=== PATIENT | female | born 2000 | race Hispanic/Latino ===

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

== ENCOUNTER 2020-04-18 11:50 | Inpatient (IN) | payer MEDICAID, OTHER ==
[2020-04-18] VITALS (18 sets, daily range): BP systolic 97–142; BP diastolic 52–89
[~2020-04-18] VITALS: Ht 157.5 cm; Wt 89.5 kg
--- NOTE | 2020-04-18 11:45 | NUR ---
APRIL GORDON presented to unit via ambulation from ED, accompanied by mother, with c/o ELEVATED BP. Pt. weighed, gowned, voided, and to bed. EFHM and TOCO applied, VS taken. Pt. oriented to bed controls, call light, TV, heat, and A/C controls.
[~2020-04-18 11:50] MED LIST changes: +CIPR-225 PO; +HYOS0.1283 SL; +METR500T PO; +ONDA4TAB8 PO; +PANT40TA2 PO; +SULF1TAB35 PO
[2020-04-18 12:47] LABS: BASOPHILS % (AUTO) 0 % (0-10); EOSINOPHILS % (AUTO) 0 % (0-10); HEMATOCRIT 34 % (35-52); HEMOGLOBIN 11.4 g/dL (11.5-16.0); LYMPHOCYTES % (AUTO) 11 % (12-44); MEAN CORPUSCULAR HEMOGLOBIN 31 pg (25-34); MEAN CORPUSCULAR HGB CONC 34 g/dL (32-36); MEAN CORPUSCULAR VOLUME 91 fL (80-99); MEAN PLATELET VOLUME 11.4 fL (9.0-12.2); MONOCYTES # (AUTO) 0.5 10^3/uL (0.0-1.0); MONOCYTES % (AUTO) 6 % (0-12); NEUTROPHILS # (AUTO) 7.4 10^3/uL (1.8-7.8); NEUTROPHILS % (AUTO) 83 % (42-75); PLATELET COUNT 227 10^3/uL (130-400); WHITE BLOOD COUNT 8.9 10^3/uL (4.3-11.0)
[2020-04-18 13:00] LABS: ALBUMIN 3.2 GM/DL (3.2-4.5); CHLORIDE 108 MMOL/L (98-107); POTASSIUM 3.7 MMOL/L (3.6-5.0); SODIUM 137 MMOL/L (135-145)
[2020-04-18 13:01] LABS: CALCIUM 8.4 MG/DL (8.5-10.1)
[2020-04-18 13:03] LABS: GLUCOSE 82 MG/DL (70-105); TOTAL PROTEIN 6.1 GM/DL (6.4-8.2)
[2020-04-18 13:04] LABS: BILIRUBIN,TOTAL 0.5 MG/DL (0.1-1.0); CARBON DIOXIDE 17 MMOL/L (21-32)
[2020-04-18 13:06] LABS: ALKALINE PHOSPHATASE 124 U/L (40-136); GFR ESTIMATED > 60
[2020-04-18 13:07] LABS: BUN/CREATININE RATIO 12
[2020-04-18 13:09] LABS: ALANINE AMINOTRANSFERASE 10 U/L (0-55); URIC ACID 5.6 MG/DL (2.6-7.2)
--- NOTE | 2020-04-18 14:41 | History & Physical-OB ---
OB - Chief Complaint & HPI Date/Time Date of Admission: Date of Admission: Date seen by a Provider: Apr 18, 2020 Time Seen by a Provider: 14:00 Chief Complaint/History OB-Reason for Admission/Chief: Obstetrical Complication Hx : 1 Hx Para: 0 Expected Date of Delivery: Apr 30, 2020 Gestational Age in Weeks: 38 Gestational Age in Days: 2 Indication for induction: medical complication (preeclampsia) Other reason for admission: In clinic for routine visit today had diastolic 90 and above, including on repeat check and had 1+ protein on urine dip, sent to L&D for labs and found to have protein to creatinine ratio 0.46. She also admitted severe headaches over the last several days that didn't last long each time so she didn't know if they were significant. She and her mother note that she does not have a vehicle or reliable transportation (and she has missed last few appointments in fact), so they are concerned if she goes home and has complications they may not be able to get back in a timely fashion. History of Labs B negative, antibody neg, RI. HIV/HepB/RPR NR. GC neg. Chlamydia pos in early , treated and THALIA negative. Glucola nml, GBS neg. Allergies and Home Medications Allergies Coded Allergies: No Known Drug Allergies (Unverified , 11/17/08) Home Medications Vit/Iron Fumarate/FA 1 Each Tablet, 1 EACH PO DAILY, (Reported) Patient Home Medication List Home Medication List Reviewed: Yes OB - History Hx of Present Care: Yes Ultrasounds: Normal mid trimester US Obstetrical Complications: Pre-eclampsia Obstetrical History Hx : 1 Hx Para: 0 Delivery History Hx Blood Disorders: No Adverse Rxn to Tranfusion: No Patient Past Medical History PMHx: Denies SurgHx: Tonsillectomy Social History/Family History HIV/AIDS: No Recent Infectious Disease Expo: No Sexually Transmitted Disease: No Alcohol Use: Denies Use Recreational Drug Use: No Smoking Cessation: Never smoker 2nd Hand Smoke Exposure: No Immunizations Hepatitis B: No Tetanus Booster (TDap): Less than 5yrs (02/27/20) Date of Influenza Vaccine: Apr 04, 2020 Rubella: immune RPR/VDRL: Negative GBS Status: Negative HBsAG: Negative OB - Admission Exam Physical Exam Vitals: Vital Signs 04/18/20 12:17 Temp 37.0 Pulse 80 Resp 18 Pulse Ox 98 O2 Delivery Room Air HEENT: NCAT Abdomen: Non tender Extremities: Edema (trace) Cervical Dilatation: 2cm Effacement: 0% Station: -3 Membranes: Intact Heart Rate: 150's Decelerations: No Decelerations Contractions on Admission: None Yang Scoring Tool (Modified) Dilation (cm): 1-2cm (1) Effacement (%): 0-30% (0) Descent/Station: -3 (0) Cervix Consistency: Medium(1) Cervix Position: Middle/Mid-Position (1) Add 1 point for: Pre-eclampsia (1) Subtract 1 point for: Nulliparity (-1) Yang Score: 3 Labs Laboratory Tests Test 04/18/20 12:00 04/18/20 12:40 04/18/20 13:00 Range/Units Urine Protein 82 H 6-12 MG/DL Urine Creatinine 178 H 30-125 MG/DL Urine Protein/Creatinine Ratio 0.46 White Blood Count 8.9 4.3-11.0 10^3/uL Red Blood Count 3.69 L 3.80-5.11 10^6/uL Hemoglobin 11.4 L 11.5-16.0 g/dL Hematocrit 34 L 35-52 % Mean Corpuscular Volume 91 80-99 fL Mean Corpuscular Hemoglobin 31 25-34 pg Mean Corpuscular Hemoglobin Concent 34 32-36 g/dL Red Cell Distribution Width 14.3 10.0-14.5 % Platelet Count 227 130-400 10^3/uL Mean Platelet Volume 11.4 9.0-12.2 fL Immature Granulocyte % (Auto) 1 % Neutrophils (%) (Auto) 83 H 42-75 % Lymphocytes (%) (Auto) 11 L 12-44 % Monocytes (%) (Auto) 6 0-12 % Eosinophils (%) (Auto) 0 0-10 % Basophils (%) (Auto) 0 0-10 % Neutrophils # (Auto) 7.4 1.8-7.8 10^3/uL Lymphocytes # (Auto) 1.0 1.0-4.0 10^3/uL Monocytes # (Auto) 0.5 0.0-1.0 10^3/uL Eosinophils # (Auto) 0.0 0.0-0.3 10^3/uL Basophils # (Auto) 0.0 0.0-0.1 10^3/uL Immature Granulocyte # (Auto) 0.0 0.0-0.1 10^3/uL Sodium Level 137 135-145 MMOL/L Potassium Level 3.7 3.6-5.0 MMOL/L Chloride Level 108 H 98-107 MMOL/L Carbon Dioxide Level 17 L 21-32 MMOL/L Anion Gap 12 5-14 MMOL/L Blood Urea Nitrogen 6 L 7-18 MG/DL Creatinine 0.50 L 0.60-1.30 MG/DL Estimat Glomerular Filtration Rate > 60 BUN/Creatinine Ratio 12 Glucose Level 82 70-105 MG/DL Uric Acid 5.6 2.6-7.2 MG/DL Calcium Level 8.4 L 8.5-10.1 MG/DL Corrected Calcium 9.0 8.5-10.1 MG/DL Total Bilirubin 0.5 0.1-1.0 MG/DL Aspartate Amino Transf (AST/SGOT) 15 5-34 U/L Alanine Aminotransferase (ALT/SGPT) 10 0-55 U/L Alkaline Phosphatase 124 40-136 U/L Lactate Dehydrogenase 166 125-220 U/L Total Protein 6.1 L 6.4-8.2 GM/DL Albumin 3.2 3.2-4.5 GM/DL OB - Assessment/Plan/Diagnosis Assessment Admission Dx Preeclampsia (BP 130/90 and 130/96 in clinic, urine pr/cr 0.46 and new onset headache) Term intrauterine 38 weeks gestation Blood type B neg Rubella immune GBS negative Admission Status: Inpatient Order (span 2 midnights) Reason for Inpatient Admission: Induction, labor, delivery and course Plan Problems: (1) Preeclampsia Assessment & Plan: Blood pressure only mildly elevated, minimally symptomatic, will monitor closely but will not start magnesium at this time. Yang score low and patient stable, heart rate tracing reactive, will start misoprostol for cerivcal ripening. LEON GOULD MD Apr 18, 2020 14:41
--- NOTE | 2020-04-18 15:04 | NUR ---
monitors off. pt ambulated to room 320 for IOL.
--- NOTE | 2020-04-18 15:24 | NUR ---
admission paperwork completed.
--- NOTE | 2020-04-18 15:51 | NUR ---
#20g IV to Lt.wrist x1 attempt by this RN. site patent, secured with opsite. D5LR @ 100cc/hr infusing. admission labs collected from site prior to IVF's infusing.
[2020-04-18] MEDS: D5 LR IV SOLUTION 1,000 ML IV SCH (15:58)
[2020-04-18] MEDS: MISOPROSTOL 100 MCG (CYTOTEC) TAB PV PRN ×2 (16:03→20:12)
[2020-04-18] MEDS ORDERED: PREN-37 PO (17:37)
--- NOTE | 2020-04-18 18:02 | NUR ---
sitting up eating clear liquid diet. denies c/o's pain @ time.
--- NOTE | 2020-04-18 19:13 | NUR ---
report given to RANJIT De Leon.
[2020-04-18] MEDS ORDERED: CATHETER FLUSH 10 ML SYR IV SCH (22:00)
[2020-04-19] VITALS (61 sets, daily range): BP systolic 94–148; BP diastolic 40–98
[2020-04-19] MEDS: D5 LR IV SOLUTION 1,000 ML IV SCH ×2 (01:43→11:29)
[2020-04-19] MEDS ORDERED: OXYTOCIN PRE-MIX DRIP 500 ML IV ONE (06:27)
[2020-04-19] MEDS: OXYTOCIN PRE-MIX DRIP 500 ML IV SCH ×2 (06:38→17:19)
--- NOTE | 2020-04-19 08:43 | NUR ---
anesthesia notified of pt's request for epidural placement
[2020-04-19] MEDS ORDERED: LACTATED RINGERS 1,000 ML IV ONE ×2 (08:48→13:31)
--- NOTE | 2020-04-19 08:53 | NUR ---
MEHRAN Barrios and CARLENE Garcia here for epidural placement. Procedure explained, consent reviewed and signed by anesthesia. Questions answered to patient's satisfaction. Time out taken to verify correct patient/procedure. 0904- Patient up to side of bed, assisted into sitting position. Betadine prep done x3 and sterile drape applied. 0911- Local done, see anesthesia record. 0926-Test dose given, see anesthesia record for drug and dosage. Epidural catheter secured in place. Epidural placement complete. 0940-Assisted back into bed, monitors adjusted. Epidural dosed, see anesthesia record. Epidural of Sufenta/Fentanyl @12cc/hr stated per pump. Patient tolerated procedure well.
[2020-04-19] MEDS ORDERED: fentaNYL INJECTION 100 MCG/2 ML AMP ONE (08:57)
[2020-04-19] MEDS: fentaNYL 2 mcg/ml BUPIVA 0.125 100 ML ONE ×2 (09:50→13:36)
[2020-04-19] MEDS ORDERED: BUPIVACAINE 0.25% 30 ML (SENSORCAINE) VIAL ONE (09:59)
[2020-04-19] MEDS ORDERED: ONDANSETRON 4 MG/2 ML (SDV) Z0FRAN ONE (12:53)
[2020-04-19] MEDS ORDERED: CATHETER FLUSH 10 ML SYR IV PRN (13:45)
[2020-04-19] MEDS ORDERED: NALOXONE 0.4 MG/ML 1 ML (NARCAN) VIAL IV PRN (13:45)
[2020-04-19] MEDS ORDERED: ONDANSETRON 4 MG/2 ML (SDV) Z0FRAN IV PRN (13:45)
--- NOTE | 2020-04-19 15:10 | NUR ---
report given to RANJIT Larose.
--- NOTE | 2020-04-19 15:51 | NUR ---
Notified Dr Sharp of VE. [facility] rim 0 +1 station.
[2020-04-19] MEDS ORDERED: LIDOCAINE/EPI 2% 1:200,00 (XYLOCAINE) 10 ML VIAL ONE ×2 (15:55→15:56)
[2020-04-19] MEDS ORDERED: MINERAL OIL CONCENTRATE 99.9% 15 ML UDC ONE (15:55)
--- NOTE | 2020-04-19 16:59 | NUR ---
1659 Recovery initiated. FF@ UMB. mod rubra. no clots expressed. esther care given. Ice water freshened. call light within reach. no concerns voiced via pt. 1714 FF@ UMB. mod rubra. no clots expressed. Baby breast feeding. 1729 FF@ UMB. mod rubra. no clots expressed. 1745 FF@ -1. mod rubra. no clots expressed. IV infusing without difficulty. Grandmother at bedside. 1800 FF@ -1. small amount of rubra. no clots expressed. Pt eating regular diet. 1835 FF@ -1. small amount of rubra. no clots expressed. 1905 FF@ UMB. mod rubra. no clots expressed. esther care. ice pack and tucks applied to swollen labia. Call light within reach. Pt states legs are still heavy. Will wait to transfer to post at this time. Pt comfortable. Recovery completed.
--- NOTE | 2020-04-19 17:39 | OB Labor & Delivery Record ---
Vag Delivery Note Vag Delivery Note Date of Delivery: 04/19/20 Preoperative Diagnosis: Yarelis Valenzuela is a (19 /Para 1 / 0, Gestational Age (wks)38with 3 days Postoperative Diagnosis: Same Surgeon: LEON GOULD Anesthesia: Epidural Delivery Type: Findings: Viable male infant, apgars 8/9, weight 6#13 Lacerations: bilateral periurethral and vaginal sulcus Intact placenta with 3 vessel cord. No nuchal cord, body cord or shoulder dystocia Estimated Blood Loss: 300 ml Complications: None Condition: Stable Description of Procedure: The patient is a 19 year old female who presented with preeclampsia. She was admitted and informed consent was obtained and induction started with misoprostol. Her labor course was unremarkable. She progressed to complete dilatation and began to push. She was then set up for delivery. The infant's head was delivered atraumatically in the FABIENNE position. The shoulders and remainder of the infant's body were then delivered without difficulty. Upon delivery, the infant was placed on maternal abdomen and after a delay, the cord was doubly clamped and cut and the infant was handed off to the pediatric staff. An intact placenta with 3-vessel cord delivered via Lesli and there was found to be minimal bleeding.~ Vigorous fundal massage was performed and the fundus was found to be firm. IV oxytocin was given. Examination of the vagina and perineum revealed bilateral periurethral and vaginal sulcus lacerations repaired in the simple running fashion with 3-0 vicryl rapide suture. Following the repair, sponge, instrument and needle counts were correct. Mom and baby were both in stable condition in the labor suite. Vitals - Labs Vital Signs - I&O Vital Signs Date Time Temp Pulse Resp B/P (MAP) Pulse Ox O2 Delivery O2 Flow Rate FiO2 04/19/20 15:30 72 18 110/60 (77) 98 Room Air 04/19/20 15:15 37.1 77 18 126/62 (83) 99 Room Air 04/19/20 15:00 76 18 105/68 (80) 97 Room Air 04/19/20 14:45 81 18 124/74 (91) 100 Room Air 04/19/20 14:30 87 18 120/69 (86) 100 Room Air 04/19/20 14:15 78 18 116/65 (82) 98 Room Air 04/19/20 14:00 77 18 114/62 (79) 98 Room Air 04/19/20 13:46 36.7 04/19/20 13:45 76 18 119/70 (86) 98 Room Air 04/19/20 13:30 76 18 119/70 (86) 98 Room Air 04/19/20 13:15 76 18 125/67 (86) 98 Room Air 04/19/20 13:00 72 18 123/75 (91) 98 Room Air 04/19/20 12:45 77 18 117/66 (83) 98 Room Air 04/19/20 12:30 68 18 120/63 (82) 98 Room Air 04/19/20 12:15 76 18 112/67 (82) 99 Room Air 04/19/20 12:00 73 18 109/60 (76) 99 Room Air 04/19/20 11:58 36.8 04/19/20 11:45 75 18 97 Room Air 04/19/20 11:30 69 18 117/58 (77) 98 Room Air 04/19/20 11:15 75 18 111/59 (76) 98 Room Air 04/19/20 11:00 78 18 111/59 (76) 99 Room Air 04/19/20 10:45 81 18 130/74 (92) 99 Room Air 04/19/20 10:30 69 18 107/57 (74) 97 Room Air 04/19/20 10:15 69 18 108/57 (74) 97 Room Air 04/19/20 10:05 77 18 144/70 (94) 97 Room Air 04/19/20 10:00 73 18 116/70 (85) 97 Room Air 04/19/20 09:55 116 18 126/62 (83) 99 Room Air 04/19/20 09:50 77 18 98 Room Air 04/19/20 09:45 77 18 106/56 (73) 99 Room Air 04/19/20 09:30 71 18 122/81 (95) 98 Room Air 04/19/20 09:25 80 18 123/82 (96) 95 Room Air 04/19/20 09:20 79 18 133/81 (98) 100 Room Air 04/19/20 09:15 82 18 137/67 (90) 100 Room Air 04/19/20 09:10 95 18 148/80 (102) 91 Room Air 04/19/20 09:00 04/19/20 08:45 75 18 123/76 (92) Room Air 04/19/20 07:45 74 18 118/56 (76) Room Air 04/19/20 07:15 87 18 124/79 (94) Room Air 04/19/20 06:40 77 20 137/93 (108) Room Air 04/19/20 06:10 66 20 125/60 (81) Room Air 04/19/20 05:40 36.5 67 20 120/62 (81) Room Air 04/19/20 05:10 80 20 118/73 (88) Room Air 04/19/20 04:40 84 20 125/76 (92) Room Air 04/19/20 04:10 36.7 68 20 115/67 (83) Room Air 04/19/20 03:40 78 16 124/67 (86) Room Air 04/19/20 03:10 69 16 119/67 (84) Room Air 04/19/20 02:40 57 16 126/71 (89) Room Air 04/19/20 02:10 68 16 112/65 (81) Room Air 04/19/20 01:40 72 16 132/98 (109) Room Air 04/19/20 01:10 71 16 94/40 (58) Room Air 04/19/20 00:40 62 16 116/72 (87) Room Air 04/19/20 00:10 71 16 122/61 (81) Room Air 04/18/20 23:40 75 16 104/61 (75) Room Air 04/18/20 23:10 74 18 97/52 (67) Room Air 04/18/20 22:40 36.6 69 18 114/57 (76) Room Air 04/18/20 21:10 70 18 135/83 (100) Room Air 04/18/20 20:40 75 18 126/63 (84) Room Air 04/18/20 20:10 79 18 142/89 (106) Room Air 04/18/20 20:00 36.5 75 18 129/82 (98) Room Air 04/18/20 18:40 63 18 117/77 (90) Room Air 04/18/20 18:35 71 18 132/70 (90) Room Air I & O 04/19/20 07:00 Intake Total 1000 ml Balance 1000 ml BRYANNA,LEON N MD Apr 19, 2020 17:39
[2020-04-19] MEDS ORDERED: OXYTOCIN PRE-MIX DRIP 500 ML IV SCH (18:00)
[2020-04-19] MEDS ORDERED: MEASLES,MUMPS,RUBELLA 1 EA INJ SQ ONE (18:00)
[2020-04-19] MEDS ORDERED: TETANUS,DIPTH,PERTUSS P/F (BOOSTRIX) 0.5 ML VIAL IM ONE (18:00)
--- NOTE | 2020-04-19 18:30 | NUR ---
Epidural cath dcd. Tip intact. site clean and dry. Band aide applied . no concerns voiced via pt.
[2020-04-19] MEDS: IBUPROFEN 600 MG (MOTRIN) TAB PO SCH (18:38)
[2020-04-19] MEDS: WITCH HAZEL(TUCKS) 40 EA JAR TOP PRN (18:46)
--- NOTE | 2020-04-19 20:05 | NUR ---
Patient ambulated to bathroom with stand by assist without difficulty. Positive void noted. Light rubra bleeding, no clots noted.
--- NOTE | 2020-04-19 20:15 | NUR ---
Patient transferred to room 311 via ambulation. Accompanied by staff, mother, and infant in crib. Patient oriented to room, room service, call light, bed controls, and thermostat. PP folder reviewed and patient verbalized understanding. Fresh ice water and linens for shower provided. No other questions or concerns voiced at this time.
[2020-04-19] MEDS: DOCUSATE SODIUM 100 MG (COLACE) CAP PO SCH (20:35)
[2020-04-19] MEDS: BENZOCAINE/MENTHOL (DERMOPLAST) 60 ML CAN TP PRN (20:35)
[2020-04-19] MEDS ORDERED: CATHETER FLUSH 10 ML SYR IV SCH (22:00)
--- NOTE | 2020-04-19 22:15 | NUR ---
Dr. Sharp updated on patient bleeding. No new orders received at this time.
--- NOTE | 2020-04-19 23:00 | NUR ---
Dr. Sharp updated that patient saturated a pad in an hour, had clots but unable to determine size due to being in the toilet. Fundus at umbilicus, boggy but firmed with massage. Orders received for 800mcg rectal cytotec.
[2020-04-19] MEDS ORDERED: MISOPROSTOL 200 MCG (CYTOTEC) TABLET PR ONE (23:15)
--- NOTE | 2020-04-20 00:15 | NUR ---
Patient up to bathroom. light to moderate rubra bleeding, no clots noted. Patient continues to deny feeling dizzy or light headed. Will continue to monitor.
[2020-04-20 00:21] VITALS: BP 117/72
[2020-04-20] MEDS: IBUPROFEN 600 MG (MOTRIN) TAB PO SCH ×4 (00:21→19:54)
--- NOTE | 2020-04-20 01:30 | NUR ---
Patient up to bathroom. light rubra bleeding, no clots noted.
[2020-04-20 05:00] VITALS: BP 107/59
--- NOTE | 2020-04-20 05:00 | NUR ---
Patient up to bathroom. light rubra bleeding, no clots noted.
[2020-04-20 05:29] LABS: BASOPHILS % (AUTO) 0 % (0-10); EOSINOPHILS % (AUTO) 0 % (0-10); HEMATOCRIT 24 % (35-52); LYMPHOCYTES # (AUTO) 1.8 10^3/uL (1.0-4.0); LYMPHOCYTES % (AUTO) 13 % (12-44); MEAN CORPUSCULAR HEMOGLOBIN 31 pg (25-34); MEAN CORPUSCULAR HGB CONC 34 g/dL (32-36); MEAN CORPUSCULAR VOLUME 93 fL (80-99); MEAN PLATELET VOLUME 11.8 fL (9.0-12.2); MONOCYTES # (AUTO) 0.9 10^3/uL (0.0-1.0); MONOCYTES % (AUTO) 7 % (0-12); NEUTROPHILS # (AUTO) 10.5 10^3/uL (1.8-7.8); NEUTROPHILS % (AUTO) 79 % (42-75); PLATELET COUNT 200 10^3/uL (130-400); WHITE BLOOD COUNT 13.2 10^3/uL (4.3-11.0)
--- NOTE | 2020-04-20 06:48 | Anesthesia-Regional Post-Op ---
Regional Patient Condition Mental Status: Alert, Oriented x3 Circulation: Same as Pre-Op Headache: Absent Sensation: Full Recovery Motor Block: Absent Post Op Complications Complications None Follow Up Care/Instructions Patient Instructions None needed. Anesthesia/Patient Condition Patient is doing well, no complaints, stable vital signs, no apparent adverse anesthesia problems. No complications reported per nursing. ANNA DE LEÓN CRNA Apr 20, 2020 06:48
[2020-04-20 07:55] VITALS: BP 125/78
[2020-04-20] MEDS: DOCUSATE SODIUM 100 MG (COLACE) CAP PO SCH ×2 (07:59→19:54)
[2020-04-20 12:40] VITALS: BP 109/55
[2020-04-20] MEDS: WITCH HAZEL(TUCKS) 40 EA JAR TOP PRN (14:02)
--- NOTE | 2020-04-20 14:31 | Progress Note ---
Subjective Subjective/Events-last exam Feeling well, no complaints. Bleeding was heavier last night but normal lochia today. Objective Exam Last Set of Vital Signs Vital Signs Date Time Temp Pulse Resp B/P (MAP) Pulse Ox O2 Delivery O2 Flow Rate FiO2 04/20/20 08:02 37.3 04/20/20 05:00 91 18 107/59 (75) 99 Room Air Capillary Refill : Less Than 3 Seconds I&O Intake and Output 04/20/20 00:00 Intake Total 2500 ml Balance 2500 ml Intake IV Total 2500 ml General: Alert, Oriented X3, Cooperative Neuro: Normal Speech Psych/Mental Status: Mental Status NL Results/Procedures Lab Laboratory Tests 04/20/20 04:55: White Blood Count 13.2H, Red Blood Count 2.58L, Hemoglobin 8.0#L, Hematocrit 24L , Mean Corpuscular Volume 93, Mean Corpuscular Hemoglobin 31, Mean Corpuscular Hemoglobin Concent 34, Red Cell Distribution Width 14.6H, Platelet Count 200, Mean Platelet Volume 11.8, Immature Granulocyte % (Auto) 1, Neutrophils (%) (Auto) 79H, Lymphocytes (%) (Auto) 13, Monocytes (%) (Auto) 7, Eosinophils (%) (Auto) 0, Basophils (%) (Auto) 0, Neutrophils # (Auto) 10.5H, Lymphocytes # (Auto) 1.8, Monocytes # (Auto) 0.9, Eosinophils # (Auto) 0.0, Basophils # (Auto) 0.0, Immature Granulocyte # (Auto) 0.1 Assessment/Plan Assessment/Plan (1) Status post vaginal delivery Assessment & Plan: 38wk IOL for pre-eclampsia s/p Bilateral periurethral and vaginal sulcus lacerations - repaired. PPD#1 - doing well. Working on . Plan DC home tomorrow. (2) Anemia, Status: Acute Assessment & Plan: Hb 11.8 --> 8.0 start ferrous sulfate (3) Preeclampsia Status: Acute Assessment & Plan: BP normal post-. Clinical Quality Measures DVT/VTE Risk/Contraindication: Risk Factor Score Per Nursin RFS Level Per Nursing on Admit: 1=Low/No VTE PPX PAULETTE JACKMAN DO Apr 20, 2020 14:31
[2020-04-20 17:10] VITALS: BP 110/68
[2020-04-20] MEDS: FERROUS SULF 325 MG (IRON) TAB PO SCH (17:12)
[2020-04-20 21:38] VITALS: BP 122/72
[2020-04-21 02:00] VITALS: BP 111/56
--- NOTE | 2020-04-21 02:00 | NUR ---
pt up to void with 1 large clot noted, pt then cleaned up and returned to bed. fundal massage performed and fundus u/1.
[2020-04-21] MEDS: IBUPROFEN 600 MG (MOTRIN) TAB PO SCH ×2 (02:52→09:29)
--- NOTE | 2020-04-21 03:00 | NUR ---
Pt states no bleeding at this time. or previous to large clot. will continue to monitor
[2020-04-21 09:00] VITALS: BP 112/67
--- NOTE | 2020-04-21 09:00 | NUR ---
A.M. ASSESSMENT COMPLETED. VSS. CARING FOR IN ROOM. GOOD INTERACTION NOTED.
[2020-04-21] MEDS ORDERED: FERR325T18 PO (09:01)
[2020-04-21] MEDS ORDERED: IBUP-844 PO (09:01)
--- NOTE | 2020-04-21 09:01 | Discharge Summary ---
Discharge Summary Hospital Course Problems/Diagnosis: (1) Status post vaginal delivery Assessment & Plan: 38wk IOL for pre-eclampsia s/p Bilateral periurethral and vaginal sulcus lacerations - repaired. (2) Anemia, Status: Acute Assessment & Plan: Hb 11.8 --> 8.0 start ferrous sulfate (3) Preeclampsia Status: Acute Assessment & Plan: BP normal post-. Qualifiers: Qualified Codes: O14.93 - Unspecified pre-eclampsia, third trimester Hospital Course Date of Admission: Apr 18, 2020 at 14:30 Admission Diagnosis : Family Physician/Provider: [facility] Date of Discharge: 04/21/20 Discharge Diagnosis: See problem list Hospital Course: See problem list Labs and Pending Lab Test: Home Meds Active Reported Tablet ( Vit/Iron Fumarate/FA) 1 Each Tablet 1 Each PO DAILY Assessment/Pt DC Instructions Follow up in 6 weeks Discharge Diet: Regular Diet Activity as Tolerated: Yes (avoid strenuous activity x 6 weeks) Discharge Physical Examination Allergies: Coded Allergies: No Known Drug Allergies (Unverified , 11/17/08) General Appearance: No Apparent Distress Respiratory: Lungs Clear, Normal Breath Sounds Cardiovascular: Regular Rate, Rhythm, No Murmur Extremity: No Pedal Edema Skin: Normal Color, Warm/Dry Neurologic/Psychiatric: Alert, Normal Mood/Affect Clinical Quality Measures DVT/VTE Risk/Contraindication: Risk Factor Score Per Nursin RFS Level Per Nursing on Admit: 1=Low/No VTE PPX LEON GOULD MD Apr 21, 2020 09:01
[2020-04-21] MEDS: WITCH HAZEL(TUCKS) 40 EA JAR TOP PRN (09:28)
[2020-04-21] MEDS: DOCUSATE SODIUM 100 MG (COLACE) CAP PO SCH (09:29)
[2020-04-21] MEDS: FERROUS SULF 325 MG (IRON) TAB PO SCH (09:29)
[2020-04-21] MEDS: BENZOCAINE/MENTHOL (DERMOPLAST) 60 ML CAN TP PRN (09:29)
--- NOTE | 2020-04-21 10:01 | NUR ---
Discharge instructions and medications reviewed with patient both written and verbally. Patient verbalizes understanding and questions answered.
--- NOTE | 2020-04-21 10:30 | NUR ---
Patient discharged at this time and accompanied down to awaiting private vehicle by Nehal De Luna RN. No signs or symptoms of distress note.
--- NOTE | 2020-04-23 23:11 | Physician Query Clarification ---
PQ-Further Specificity Admission/Discharge Admission Date: Apr 18, 2020 at 14:30 Discharge Date: Apr 21, 2020 at 10:35 Dr. LEON GOULD MD The medical record reflects the following clinical scenario: History/Risk Factors: 19 y/o female with 38 weaks gestation admitted for induction of labour due to preeclampsia delivered via . Progress notes, 04/20: status post vaginal delivery, anemia . Discharge summary, 04/21: status post vaginal delivery, anemia . Clinical Findings: Hgb 11.4-8.4 L, Hct 34-24 L, estimated blood loss 300 ml. Treatment: Ferrous sulphate Question: Can you further specify Anemia per the clinical indicators above? Please document a response in the Progress Notes or Discharge Summary. 1. Acute blood loss anemia 2. Iron deficiency anemia 3. Other, with explanation of the clinical findings. 4. Clinically undetermined, no explanation for the clinical findings. PHYSICIAN RESPONSE Can you specify per above: 1 Please remember a lack of response to the above will prompt a phone page by CDI/Coding staff. In responding to this query, please exercise your independent professional judgment. The purpose of this communication is to more accurately reflect the complexity of your patients condition. The fact that a question is asked does not imply that any particular answer is desired or expected. Thank you for your timely response to this clarification. Requestors name: [ ] Phone # [ ] THIS PHYSICIAN QUERY FORM IS A PERMANENT PART OF THE MEDICAL RECORD RAY RAY Apr 23, 2020 23:11 LEON GOULD MD Apr 25, 2020 17:02
== END 2020-04-21 10:35 | disposition home or self-care (01) | DRG 806 ==
LOC: WSo 11:50 → LDRP 11:51 → WSo 14:29 → LDRP 14:30
PROVIDERS: ADMIT Family Medicine; ATTEND Family Medicine
PROC: 10E0XZZ Delivery of Products of Conception, External Approach (ICD-10-PCS; principal; 2020-04-19)
PROC: 0UQMXZZ Repair Vulva, External Approach (ICD-10-PCS; 2020-04-19)
PROC: 0UQGXZZ Repair Vagina, External Approach (ICD-10-PCS; 2020-04-19)
DX: O14.94 Unspecified pre-eclampsia, complicating childbirth (principal); D62 Acute posthemorrhagic anemia; Z37.0 Single live birth; Z3A.38 38 weeks gestation of pregnancy; O71.82 Other specified trauma to perineum and vulva; O71.4 Obstetric high vaginal laceration alone; O90.81 Anemia of the puerperium
CPT/HCPCS: 36415; 80053; 82570; 83033; 83615; 84156; 84550; 85025; 86780; 86850; 86900; 86901; 87635; 99212

== ENCOUNTER 2020-05-09 21:22 | Emergency (ER) | payer MEDICAID ==
[~2020-05-09] VITALS: Ht 157.4 cm; Wt 76.6 kg
[~2020-05-09 21:22] MED LIST changes: +FERR325T18 PO; +IBUP-844 PO; +PREN-37 PO
[2020-05-09 22:00] LABS: BILIRUBIN,URINE NEGATIVE (NEGATIVE); CLARITY,URINE SL CLOUDY; COLOR,URINE YELLOW; GLUCOSE, URINE (UA) NEGATIVE (NEGATIVE); KETONES,URINE NEGATIVE (NEGATIVE); LEUKOCYTE ESTERASE ,URINE NEGATIVE (NEGATIVE); NITRITE,URINE NEGATIVE (NEGATIVE); PH,URINE 7.5 (5-9); PROTEIN,URINE TRACE (NEGATIVE)
[2020-05-09] MEDS ORDERED: FAMOTIDINE 20MG/2ML IV (PEPCID) IVP ONE (22:00)
[2020-05-09] MEDS ORDERED: LACTATED RINGERS 1,000 ML IV ONE (22:00)
[2020-05-09] MEDS ORDERED: fentaNYL INJECTION 100 MCG/2 ML AMP IVP ONE (22:00)
[2020-05-09] MEDS ORDERED: ONDANSETRON 4 MG/2 ML (SDV) Z0FRAN IVP ONE (22:00)
[2020-05-09 22:09] LABS: BACTERIA,URINE FEW /HPF; RBC,URINE 0-2 /HPF; SQUAMOUS EPITHELIAL CELL,UR 0-2 /HPF
[2020-05-09 22:34] LABS: BASOPHILS % (AUTO) 0 % (0-10); EOSINOPHILS % (AUTO) 1 % (0-10); HEMATOCRIT 34 % (35-52); HEMOGLOBIN 11.2 g/dL (11.5-16.0); LYMPHOCYTES # (AUTO) 1.8 10^3/uL (1.0-4.0); LYMPHOCYTES % (AUTO) 32 % (12-44); MEAN CORPUSCULAR HEMOGLOBIN 31 pg (25-34); MEAN CORPUSCULAR HGB CONC 33 g/dL (32-36); MEAN CORPUSCULAR VOLUME 94 fL (80-99); MEAN PLATELET VOLUME 10.2 fL (9.0-12.2); MONOCYTES # (AUTO) 0.4 10^3/uL (0.0-1.0); MONOCYTES % (AUTO) 7 % (0-12); NEUTROPHILS # (AUTO) 3.4 10^3/uL (1.8-7.8); NEUTROPHILS % (AUTO) 60 % (42-75); PLATELET COUNT 327 10^3/uL (130-400); WHITE BLOOD COUNT 5.7 10^3/uL (4.3-11.0)
[2020-05-09 23:07] LABS: ALANINE AMINOTRANSFERASE 26 U/L (0-55); ALBUMIN 3.9 GM/DL (3.2-4.5); ALKALINE PHOSPHATASE 95 U/L (40-136); BILIRUBIN,TOTAL 0.2 MG/DL (0.1-1.0); BUN/CREATININE RATIO 21; CALCIUM 8.8 MG/DL (8.5-10.1); CARBON DIOXIDE 20 MMOL/L (21-32); CHLORIDE 108 MMOL/L (98-107); CREATININE SERUM 0.63 MG/DL (0.60-1.30); GFR ESTIMATED > 60; GLUCOSE 102 MG/DL (70-105); LIPASE 22 U/L (8-78); POTASSIUM 3.5 MMOL/L (3.6-5.0); SODIUM 141 MMOL/L (135-145); TOTAL PROTEIN 6.8 GM/DL (6.4-8.2)
--- NOTE | 2020-05-09 23:43 | ED Abdominal Pain ---
General Chief Complaint: Abdominal/GI Problems Stated Complaint: R SIDE PAIN/ABD PAIN Nursing Triage Note: Pt c/o R sided abdominal pain that radiates into R shoulder, accompanied by nausea but no vomiting. Pt reports a vaginal delivery in April. Sepsis Screen: No Definite Risk Source of Information: Patient Exam Limitations: No Limitations History of Present Illness Date Seen by Provider: May 09, 2020 Time Seen by Provider: 21:27 Initial Comments This 19-year-old young lady presents to the emergency room with sharp right upper quadrant pain just beneath the costal margin that started about 1 hour prior to arrival. Her pain radiates to the right posterior shoulder. She had episodes of upper abdominal pain during her which she reports her doctor stated could be associated with the gallbladder. She is about 3 weeks . Her delivery was April 19. She is nauseated but denies vomiting. She denies constipation, diarrhea, or urinary symptoms. She is afebrile. She ate [place] and salad tonight. Allergies and Home Medications Allergies Coded Allergies: No Known Drug Allergies (Unverified , 11/17/08) Home Medications Cephalexin 500 Mg Capsule, 500 MG PO TID Prescribed by: DEVYN CEE on 05/09/20 2344 Ferrous Sulfate 325 Mg Tablet, 325 MG PO DAILY@0700 Prescribed by: LEON GOULD on 04/21/20 0901 Ibuprofen 600 Mg Tablet, 600 MG PO Q6HR PRN for PAIN-MODERATE (5-7) Prescribed by: LEON GOULD on 04/21/20 0901 Vit/Iron Fumarate/FA 1 Each Tablet, 1 EACH PO DAILY, (Reported) Patient Home Medication List Home Medication List Reviewed: Yes Review of Systems Review of Systems Constitutional: no symptoms reported EENTM: No Symptoms Reported Respiratory: No Symptoms Reported Gastrointestinal: See HPI Genitourinary: No Symptoms Reported Musculoskeletal: no symptoms reported Skin: no symptoms reported Psychiatric/Neurological: No Symptoms Reported Endocrine: No Symptoms Reported Hematologic/Lymphatic: No Symptoms Reported Past Trvsvyc-Axbmbt-Obzuts Hx Past Med/Social Hx: Reviewed Nursing Past Med/Soc Hx Patient Social History Alcohol Use: Denies Use Recreational Drug Use: No 2nd Hand Smoke Exposure: No Recent Foreign Travel: No Contact w/Someone Who Travel: No Recent Infectious Disease Expo: No Recent Hopitalizations: Yes (delivery 04/20) Immunizations Up To Date Tetanus Booster (TDap): Less than 5yrs PED Vaccines UTD: Yes Date of Influenza Vaccine: Apr 04, 2020 Seasonal Allergies Seasonal Allergies: No Past Medical History Surgeries: No Tonsillectomy Respiratory: Yes Asthma Cardiac: No Neurological: No : No Reproductive Disorders: No Female Reproductive Disorders: Denies Sexually Transmitted Disease: Yes (CHLAMYDIA IN SARY- TREATED) HIV/AIDS: No Genitourinary: No Gastrointestinal: Yes Ulcer Musculoskeletal: No Endocrine: No HEENT: No Cancer: No Psychosocial: No Integumentary: No Blood Disorders: No Adverse Reaction/Blood Tranf: No Family Medical History FH: hyperlipidemia (MOTHER) FHx: asthma ([place]LING) No Pertinent Family Hx Physical Exam Vital Signs Vital Signs - First Documented 05/09/20 21:30 Temp 36.6 Pulse 71 Resp 15 B/P (MAP) 120/77 (91) Pulse Ox 99 O2 Delivery Room Air Capillary Refill : Less Than 3 Seconds Height/Weight/BMI Height: 5'3.00" Weight: 180lbs. oz. [id number]; 30.00 BMI Method:Stated General Appearance: WD/WN, no apparent distress HEENT: normal ENT inspection Neck: normal inspection Respiratory: chest non-tender, lungs clear, normal breath sounds, no respiratory distress Cardiovascular: regular rate, rhythm, no edema, no murmur Gastrointestinal: normal bowel sounds, soft, tenderness (Right upper quadrant and epigastrium) Extremities: normal inspection, no pedal edema Neurologic/Psychiatric: sprinkler installer II-XII nml as tested, no motor/sensory deficits, alert, normal mood/affect, oriented x 3 Skin: normal color, warm/dry Progress/Results/Core Measures Results/Orders Lab Results Laboratory Tests Test 05/09/20 21:30 05/09/20 22:25 Range/Units Urine Color YELLOW Urine Clarity SL CLOUDY Urine pH 7.5 5-9 Urine Specific [place] 1.020 1.016-1.022 Urine Protein TRACE H NEGATIVE Urine Glucose (UA) NEGATIVE NEGATIVE Urine Ketones NEGATIVE NEGATIVE Urine Nitrite NEGATIVE NEGATIVE Urine Bilirubin NEGATIVE NEGATIVE Urine Urobilinogen 0.2 < = 1.0 MG/DL Urine Leukocyte Esterase NEGATIVE NEGATIVE Urine RBC (Auto) 3+ H NEGATIVE Urine RBC 0-2 /HPF Urine WBC 10-25 H /HPF Urine Squamous Epithelial Cells 0-2 /HPF Urine Crystals NONE /LPF Urine Bacteria FEW H /HPF Urine Casts NONE /LPF Urine Mucus MODERATE H /LPF Urine Culture Indicated YES White Blood Count 5.7 4.3-11.0 10^3/uL Red Blood Count 3.66 L 3.80-5.11 10^6/uL Hemoglobin 11.2 L 11.5-16.0 g/dL Hematocrit 34 L 35-52 % Mean Corpuscular Volume 94 80-99 fL Mean Corpuscular Hemoglobin 31 25-34 pg Mean Corpuscular Hemoglobin Concent 33 32-36 g/dL Red Cell Distribution Width 13.0 10.0-14.5 % Platelet Count 327 130-400 10^3/uL Mean Platelet Volume 10.2 9.0-12.2 fL Immature Granulocyte % (Auto) 0 % Neutrophils (%) (Auto) 60 42-75 % Lymphocytes (%) (Auto) 32 12-44 % Monocytes (%) (Auto) 7 0-12 % Eosinophils (%) (Auto) 1 0-10 % Basophils (%) (Auto) 0 0-10 % Neutrophils # (Auto) 3.4 1.8-7.8 10^3/uL Lymphocytes # (Auto) 1.8 1.0-4.0 10^3/uL Monocytes # (Auto) 0.4 0.0-1.0 10^3/uL Eosinophils # (Auto) 0.0 0.0-0.3 10^3/uL Basophils # (Auto) 0.0 0.0-0.1 10^3/uL Immature Granulocyte # (Auto) 0.0 0.0-0.1 10^3/uL Sodium Level 141 135-145 MMOL/L Potassium Level 3.5 L 3.6-5.0 MMOL/L Chloride Level 108 H 98-107 MMOL/L Carbon Dioxide Level 20 L 21-32 MMOL/L Anion Gap 13 5-14 MMOL/L Blood Urea Nitrogen 13 7-18 MG/DL Creatinine 0.63 0.60-1.30 MG/DL Estimat Glomerular Filtration Rate > 60 BUN/Creatinine Ratio 21 Glucose Level 102 70-105 MG/DL Calcium Level 8.8 8.5-10.1 MG/DL Corrected Calcium 8.9 8.5-10.1 MG/DL Total Bilirubin 0.2 0.1-1.0 MG/DL Aspartate Amino Transf (AST/SGOT) 20 5-34 U/L Alanine Aminotransferase (ALT/SGPT) 26 0-55 U/L Alkaline Phosphatase 95 40-136 U/L C-Reactive Protein High Sensitivity 0.11 0.00-0.50 MG/DL Total Protein 6.8 6.4-8.2 GM/DL Albumin 3.9 3.2-4.5 GM/DL Lipase 22 8-78 U/L My Orders Orders - DEVYN FOSTER MD Ua Culture If Indicated (05/09/20 21:27) Cbc With Automated Diff (05/09/20 21:58) Comprehensive Metabolic Panel (05/09/20 21:58) Hs C Reactive Protein (05/09/20 21:58) Lipase (05/09/20 21:58) Ed Iv/Invasive Line Start (05/09/20 21:58) Lactated Ringers (Lr 1000 Ml Iv Solution (05/09/20 22:00) Ondansetron Injection (Zofran Injectio (05/09/20 22:00) Famotidine Injection (Pepcid Injection) (05/09/20 22:00) Fentanyl Injection (Sublimaze Injection (05/09/20 22:00) Urine Culture (05/09/20 21:30) Ceftriaxone For Iv Use (Rocephin For I (05/09/20 23:45) Hydrocodone/Apap 5/325 Tablet (Lortab 5 (05/09/20 23:45) Medications Given in ED Current Medications Medications Dose Ordered Sig/Graciela Route Start Time Stop Time Status Last Admin Dose Admin Acetaminophen/ Hydrocodone Bitart 1 tab ONCE ONCE PO 05/09/20 23:45 05/09/20 23:46 DC 05/09/20 23:47 1 TAB Ceftriaxone Sodium 1000 mg/ Sterile Water 10 ml @ 200 mls/hr ONCE ONCE IV 05/09/20 23:45 05/09/20 23:47 DC 05/09/20 23:47 200 MLS/HR Famotidine 20 mg ONCE ONCE IVP 05/09/20 22:00 05/09/20 22:01 DC 05/09/20 22:23 20 MG Fentanyl Citrate 50 mcg ONCE ONCE IVP 05/09/20 22:00 05/09/20 22:01 DC 05/09/20 22:21 50 MCG Lactated Ringer's 1,000 ml @ 0 mls/hr Q0M ONCE IV 05/09/20 22:00 05/09/20 22:01 DC 05/09/20 22:25 1,000 MLS/HR Ondansetron HCl 8 mg ONCE ONCE IVP 05/09/20 22:00 05/09/20 22:01 DC 05/09/20 22:19 8 MG Vital Signs/I&O 05/09/20 21:30 Temp 36.6 Pulse 71 Resp 15 B/P (MAP) 120/77 (91) Pulse Ox 99 O2 Delivery Room Air Blood Pressure Mean: 91 Progress Progress Note : Progress Note Patient was treated with Zofran, Pepcid, a liter of LR, and fentanyl. She felt much better after these therapies. Labs were relatively unremarkable except for evidence of pyuria. Since she did not appear to be septic or have acute cholecystitis based on vital signs and labs, further work-up in outpatient setting was deemed appropriate. An order form for an outpatient ultrasound was provided. Hydrocodone was given prior to discharge. Departure Impression Primary Impression: Right upper quadrant pain Additional Impressions: Urinary tract infection Qualified Codes: N39.0 - Urinary tract infection, site not specified Nausea Disposition: HOME, SELF-CARE Condition: Improved Departure-Patient Inst. Decision time for Depature: 23:35 Referrals: [facility] (PCP/Family) Primary Care Physician Patient Instructions: Abdominal Pain, Adult ED, Urinary Tract Infection, Adult (DC) Add. Discharge Instructions: Adhere to a clear liquid diet until 2:00 in the morning. Then do not eat or drink until after your gallbladder ultrasound. Bring your ultrasound order form to the hospital registration desk at 7:30 in the morning. Stay in the ultrasoun d department until instructions are received from the ER provider. Start your antibiotic tomorrow and complete the entire course to treat urinary tract infection. Drink plenty of clear liquids. Call or return to care with worsening symptoms or any other questions or concerns. All discharge instructions reviewed with patient and/or family. Voiced understanding. Scripts Cephalexin (Keflex) 500 Mg Capsule 500 MG PO TID, #20 CAP Prov: DEVYN FOSTER MD 05/09/20 Copy Copies To 1: PAULETTE JACKMAN JOSHUA T MD May 09, 2020 23:43
[2020-05-09] MEDS ORDERED: CEPH-507 PO (23:44)
[2020-05-09] MEDS ORDERED: HYDROcodone/APAP 5 MG/325 MG (LORTAB) TAB PO ONE (23:45)
[2020-05-09] MEDS ORDERED: cefTRIAXone FOR IV USE 1,000 MG in WATER (STERILE) FOR INJECTION 10 ML IV ONE (23:45)
[2020-05-10 00:32] VITALS: BP 124/77
== END 2020-05-10 00:15 | disposition home or self-care (01) ==
LOC: EDUNIT# 21:22 → ER 21:25
DX: R11.2 Nausea with vomiting, unspecified (principal); R10.13 Epigastric pain; N39.0 Urinary tract infection, site not specified; R11.0 Nausea
CPT/HCPCS: 36415; 80053; 81000; 83690; 85025; 86141; 87088

== ENCOUNTER 2020-05-14 22:20 | Emergency (ER) | payer MEDICAID ==
[~2020-05-14] VITALS: Ht 157.5 cm; Wt 76.2 kg
[2020-05-14] MEDS ORDERED: KETOROLAC 30 MG/ML VIAL IVP STA (22:38)
[2020-05-14] MEDS ORDERED: LACTATED RINGERS 1,000 ML IV ONE (22:45)
[2020-05-14] MEDS ORDERED: PANTOPRAZOLE 40 MG (PROTONIX) VIAL IV ONE (22:45)
[2020-05-14] MEDS ORDERED: ONDANSETRON 4 MG/2 ML (SDV) Z0FRAN IVP ONE (22:45)
[2020-05-14 22:47] LABS: BILIRUBIN,URINE NEGATIVE (NEGATIVE); CLARITY,URINE CLOUDY; COLOR,URINE YELLOW; GLUCOSE, URINE (UA) NEGATIVE (NEGATIVE); KETONES,URINE NEGATIVE (NEGATIVE); LEUKOCYTE ESTERASE ,URINE 2+ (NEGATIVE); NITRITE,URINE NEGATIVE (NEGATIVE); PH,URINE 6.5 (5-9); PROTEIN,URINE NEGATIVE (NEGATIVE)
[2020-05-14 22:51] LABS: BASOPHILS % (AUTO) 0 % (0-10); EOSINOPHILS % (AUTO) 1 % (0-10); HEMATOCRIT 36 % (35-52); LYMPHOCYTES # (AUTO) 2.3 10^3/uL (1.0-4.0); LYMPHOCYTES % (AUTO) 38 % (12-44); MEAN CORPUSCULAR HEMOGLOBIN 30 pg (25-34); MEAN CORPUSCULAR HGB CONC 33 g/dL (32-36); MEAN CORPUSCULAR VOLUME 91 fL (80-99); MEAN PLATELET VOLUME 10.3 fL (9.0-12.2); MONOCYTES # (AUTO) 0.4 10^3/uL (0.0-1.0); MONOCYTES % (AUTO) 7 % (0-12); NEUTROPHILS # (AUTO) 3.4 10^3/uL (1.8-7.8); NEUTROPHILS % (AUTO) 54 % (42-75); PLATELET COUNT 347 10^3/uL (130-400); WHITE BLOOD COUNT 6.2 10^3/uL (4.3-11.0)
[2020-05-14 22:56] LABS: ALBUMIN 4.3 GM/DL (3.2-4.5); CHLORIDE 105 MMOL/L (98-107); POTASSIUM 3.4 MMOL/L (3.6-5.0); SODIUM 139 MMOL/L (135-145)
[2020-05-14 22:57] LABS: AMYLASE 82 U/L (25-125)
[2020-05-14 22:58] LABS: CALCIUM 9.5 MG/DL (8.5-10.1)
[2020-05-14 22:59] LABS: GLUCOSE 99 MG/DL (70-105); TOTAL PROTEIN 7.5 GM/DL (6.4-8.2)
[2020-05-14 23:00] LABS: CARBON DIOXIDE 22 MMOL/L (21-32)
[2020-05-14 23:01] LABS: BILIRUBIN,TOTAL 0.3 MG/DL (0.1-1.0)
[2020-05-14 23:02] LABS: ALKALINE PHOSPHATASE 111 U/L (40-136); CREATININE SERUM 0.61 MG/DL (0.60-1.30); GFR ESTIMATED > 60
[2020-05-14 23:03] LABS: BUN/CREATININE RATIO 23
[2020-05-14 23:05] LABS: ALANINE AMINOTRANSFERASE 24 U/L (0-55)
[2020-05-14 23:06] LABS: LIPASE 27 U/L (8-78)
[2020-05-14 23:11] LABS: BACTERIA,URINE FEW /HPF; RBC,URINE >100 /HPF
[2020-05-14] MEDS ORDERED: fentaNYL INJECTION 100 MCG/2 ML AMP IVP ONE (23:30)
[2020-05-15] MEDS ORDERED: NS 100 ML (IVPB) BAG IV ONE
[2020-05-15] MEDS ORDERED: HOLD METFORMIN - RECEIVED CONTRAST 20 ML VIAL IV SCH
[2020-05-15] MEDS ORDERED: IOHEXOL 350 MG/ML 100 ML (OMNIPAQUE 350) VIAL IV ONE
[2020-05-15] MEDS ORDERED: cefTRIAXone FOR IV USE 1,000 MG in WATER (STERILE) FOR INJECTION 10 ML IV ONE (00:15)
--- NOTE | 2020-05-15 00:21 | ED Abdominal Pain ---
General Chief Complaint: Abdominal/GI Problems Stated Complaint: R SIDE ABD PAIN Source of Information: Patient (GEORGIAGENI Castillo DO) History of Present Illness Date Seen by Provider: May 14, 2020 (GENI HO DO) Allergies and Home Medications Allergies Coded Allergies: No Known Drug Allergies (Unverified , 11/17/08) Home Medications Cefdinir 300 Mg Capsule, 300 MG PO BID Prescribed by: GENI HO on 05/15/20 0030 Cephalexin 500 Mg Capsule, 500 MG PO TID Prescribed by: DEVYN CEE on 05/09/20 2344 Ferrous Sulfate 325 Mg Tablet, 325 MG PO DAILY@0700 Prescribed by: LEON GOULD on 04/21/20 0901 Hydrocodone/Acetaminophen 1 Each Tablet, 1 EACH PO Q4-6 HOURS PRN for PAIN Prescribed by: GENI HO on 05/15/20 0030 Hyoscyamine Sulfate 0.125 Mg Tab.subl, 0.25 MG SL Q4H Prescribed by: GENI HO on 05/15/20 0030 Ibuprofen 600 Mg Tablet, 600 MG PO Q6HR PRN for PAIN-MODERATE (5-7) Prescribed by: LEON GOULD on 04/21/20 0901 Ondansetron 4 Mg Tab.rapdis, 4 MG PO Q6H PRN for NAUSEA/VOMITING Prescribed by: EIDTA HUNT on 05/17/20 1104 Pantoprazole Sodium 40 Mg Tablet.dr, 40 MG PO DAILY Prescribed by: GENI HO on 05/15/20 0030 Vit/Iron Fumarate/FA 1 Each Tablet, 1 EACH PO DAILY, (Reported) Past Rrvzegr-Wjonln-Xcuqum Hx Patient Social History 2nd Hand Smoke Exposure: No Recent Foreign Travel: No Contact w/Someone Who Travel: No Recent Hopitalizations: Yes (delivery 04/20) (GENI HO DO) Immunizations Up To Date Tetanus Booster (TDap): Less than 5yrs PED Vaccines UTD: Yes Date of Influenza Vaccine: Apr 04, 2020 (GENI HO DO) Seasonal Allergies Seasonal Allergies: No (GENI HO DO) Past Medical History Surgeries: No Tonsillectomy Respiratory: Yes Asthma Cardiac: No Neurological: No Reproductive Disorders: No Female Reproductive Disorders: Denies Sexually Transmitted Disease: Yes (CHLAMYDIA IN AUGUST- TREATED) HIV/AIDS: No Genitourinary: No Gastrointestinal: Yes Ulcer Musculoskeletal: No Endocrine: No HEENT: No Cancer: No Psychosocial: No Integumentary: No Blood Disorders: No Adverse Reaction/Blood Tranf: No (GENI OH Anna CARVALHO) Family Medical History FH: hyperlipidemia (MOTHER) FHx: asthma (SIBLING) No Pertinent Family Hx ([place],GENI Anna CARVALHO) Physical Exam Vital Signs Vital Signs - First Documented 05/14/20 22:20 Temp 36.3 Pulse 70 Resp 20 B/P (MAP) 126/80 (95) Pulse Ox 99 O2 Delivery Room Air (EDITA HUNT) Vital Signs Capillary Refill : (GEORGIAGENI Anna CARVALHO) Height/Weight/BMI Height: 5'3.00" Weight: 180lbs. oz. 81.026568xo; 30.00 BMI Method:Stated (GEORGIAGENI Anna CARVALHO) Progress/Results/Core Measures Results/Orders Lab Results Laboratory Tests Test 05/14/20 22:36 Range/Units White Blood Count 6.2 4.3-11.0 10^3/uL Red Blood Count 4.00 3.80-5.11 10^6/uL Hemoglobin 12.0 11.5-16.0 g/dL Hematocrit 36 35-52 % Mean Corpuscular Volume 91 80-99 fL Mean Corpuscular Hemoglobin 30 25-34 pg Mean Corpuscular Hemoglobin Concent 33 32-36 g/dL Red Cell Distribution Width 12.8 10.0-14.5 % Platelet Count 347 130-400 10^3/uL Mean Platelet Volume 10.3 9.0-12.2 fL Immature Granulocyte % (Auto) 0 % Neutrophils (%) (Auto) 54 42-75 % Lymphocytes (%) (Auto) 38 12-44 % Monocytes (%) (Auto) 7 0-12 % Eosinophils (%) (Auto) 1 0-10 % Basophils (%) (Auto) 0 0-10 % Neutrophils # (Auto) 3.4 1.8-7.8 10^3/uL Lymphocytes # (Auto) 2.3 1.0-4.0 10^3/uL Monocytes # (Auto) 0.4 0.0-1.0 10^3/uL Eosinophils # (Auto) 0.0 0.0-0.3 10^3/uL Basophils # (Auto) 0.0 0.0-0.1 10^3/uL Immature Granulocyte # (Auto) 0.0 0.0-0.1 10^3/uL Urine Color YELLOW Urine Clarity CLOUDY Urine pH 6.5 5-9 Urine Specific Arnold 1.025 H 1.016-1.022 Urine Protein NEGATIVE NEGATIVE Urine Glucose (UA) NEGATIVE NEGATIVE Urine Ketones NEGATIVE NEGATIVE Urine Nitrite NEGATIVE NEGATIVE Urine Bilirubin NEGATIVE NEGATIVE Urine Urobilinogen 0.2 < = 1.0 MG/DL Urine Leukocyte Esterase 2+ H NEGATIVE Urine RBC (Auto) 3+ H NEGATIVE Urine RBC >100 H /HPF Urine WBC 5-10 H /HPF Urine Squamous Epithelial Cells 5-10 /HPF Urine Crystals NONE /LPF Urine Bacteria FEW H /HPF Urine Casts NONE /LPF Urine Mucus MODERATE H /LPF Urine Culture Indicated YES Sodium Level 139 135-145 MMOL/L Potassium Level 3.4 L 3.6-5.0 MMOL/L Chloride Level 105 98-107 MMOL/L Carbon Dioxide Level 22 21-32 MMOL/L Anion Gap 12 5-14 MMOL/L Blood Urea Nitrogen 14 7-18 MG/DL Creatinine 0.61 0.60-1.30 MG/DL Estimat Glomerular Filtration Rate > 60 BUN/Creatinine Ratio 23 Glucose Level 99 70-105 MG/DL Calcium Level 9.5 8.5-10.1 MG/DL Corrected Calcium 9.3 8.5-10.1 MG/DL Total Bilirubin 0.3 0.1-1.0 MG/DL Aspartate Amino Transf (AST/SGOT) 21 5-34 U/L Alanine Aminotransferase (ALT/SGPT) 24 0-55 U/L Alkaline Phosphatase 111 40-136 U/L Total Protein 7.5 6.4-8.2 GM/DL Albumin 4.3 3.2-4.5 GM/DL Amylase Level 82 25-125 U/L Lipase 27 8-78 U/L (EDITA HUNT) Micro Results Microbiology 05/14/20 Urine Culture - Final, Complete >=3 Gram Positive Isolates (EDITA HUNT) Vital Signs/I&O 05/14/20 05/15/20 22:20 01:05 Temp 36.3 35.1 Pulse 70 72 Resp 20 18 B/P (MAP) 126/80 (95) 108/63 Pulse Ox 99 99 O2 Delivery Room Air Room Air (EDITA HUNT) Progress Progress Note : Progress Note GIVEN IV FLUIDS, ZOFRAN, TORADOL AND FENTANYL WITH RESOLUTION OF SYMPTOMS (GENI HO DO) Progress Note : Time: 11:03 Progress Note Patient seen outpatient today for ultrasound and results were called to us. We did provide her with a prescription for ondansetron. She says the pain medicines are not working but she does not appear in any acute distress. We gave her the phone number to Dr. Hdz and encouraged her to follow-up in the clinic as well as giving her return precautions. She says she has tried the hydrocodone, hyoscyamine as well as antacids and she is taking the antibiotic. When I sent her a prescription for couple oxycodones to try. (EDITA HUNT) Diagnostic Imaging Comments ABDOMEN XRAYS--NO ACUTE PROCESS, PENDING RADIOLOGIST REVIEW CT ABDOMEN/PELVIS--MILD SPLENOMEGALY, OTHERWISE NO ACUTE PROCESS, PER [facility] VIA FAX AT [phone] Reviewed: Reviewed by Me (GENI HO DO) Departure Impression Primary Impression: Right upper quadrant pain Additional Impressions: Urinary tract infection Status post vaginal delivery Disposition: HOME, SELF-CARE Condition: Improved Departure-Patient Inst. Referrals: [facility] (PCP/Family) Primary Care Physician TATYANA HDZ BETHANY N MD Patient Instructions: Severe Abdominal Pain, Adult (DC), Urinary Tract Infection, Adult (DC) Add. Discharge Instructions: CONTINUE ALL PREVIOUS INSTRUCTIONS CALL IN THE MORNING TO SCHEDULE OUTPATIENT ULTRASOUND NOTHING TO EAT OR DRINK AFTER MIDNIGHT FOLLOW UP WITH DR. GOULD THIS WEEK FOR FURTHER CARE All discharge instructions reviewed with patient and/or family. Voiced understanding. Scripts Oxycodone HCl/Acetaminophen (Oxycodone-Acetaminophen 5-325) 1 Each Tablet 1 EACH PO Q4H PRN for PAIN-MODERATE MDD 6, #10 TAB 0 Refills Prov: EDITA HUNT 05/17/20 Ondansetron (Ondansetron Odt) 4 Mg Tab.rapdis 4 MG PO Q6H PRN for NAUSEA/VOMITING, #12 TAB 0 Refills Prov: EDITA HUNT 05/17/20 Pantoprazole Sodium (Protonix) 40 Mg Tablet.dr 40 MG PO DAILY, #15 TAB Prov: GENI HO DO 05/15/20 Hyoscyamine Sulfate (Levsin-Sl) 0.125 Mg Tab.subl 0.25 MG SL Q4H, #20 TAB Prov: GENI HO DO 05/15/20 Hydrocodone/Acetaminophen (Hydrocodone-Acetamin 5-325 mg) 1 Each Tablet 1 EACH PO Q4-6 HOURS PRN for PAIN, #20 TAB Prov: GENI HO DO 05/15/20 Cefdinir (Cefdinir) 300 Mg Capsule 300 MG PO BID, #20 CAP Prov: GENI HO DO 05/15/20 GENI HO DO May 15, 2020 00:21 EDITA HUNT May 17, 2020 11:04
[2020-05-15] MEDS ORDERED: ACHD5005 PO (00:30)
[2020-05-15] MEDS ORDERED: PANT40TA2 PO (00:30)
[2020-05-15] MEDS ORDERED: CEFD300C3 PO (00:30)
[2020-05-15] MEDS ORDERED: HYOS0.1283 SL (00:30)
[2020-05-15 01:05] VITALS: BP 108/63
--- NOTE | 2020-05-15 06:31 | Diagnostic Imaging Report ---
HISTORY: Right upper quadrant pain. COMPARISON: 11/17/2018 TECHNIQUE: Frontal view of the chest. Upright and supine frontal views of the abdomen. FINDINGS: Lung volumes are mildly low. There is airspace opacity at the right lung base which is likely atelectasis. The cardiac silhouette is normal in size. There is no pleural effusion or pneumothorax. No free air is seen in the abdomen. No distended loops of bowel are seen. There is a small to moderate amount of stool in the colon. IMPRESSION: 1. Small to moderate amount of stool in the colon with no bowel obstruction or large collection of free air. Dictated by: Dictated on workstation # [id number]
--- NOTE | 2020-05-15 06:53 | Diagnostic Imaging Report ---
PROCEDURE: CT abdomen and pelvis with contrast. TECHNIQUE: Multiple contiguous axial images were obtained through the abdomen and pelvis after administration of intravenous contrast. Auto Exposure Controls were utilized during the CT exam to meet ALARA standards for radiation dose reduction. All CT scans use one or more of the following dose optimizing techniques: automated exposure control, MA and/or KvP adjustment based on patient size and exam type or iterative reconstruction. INDICATION: Right upper quadrant pain. COMPARISON: 04/08/2017 FINDINGS: The lung bases are clear. The heart is normal in size. The liver demonstrates no focal lesions. There may be mild periportal edema, which is nonspecific, but appears to be new since 2017. No biliary dilatation is seen. The pancreas appears normal. The adrenal glands appear normal. The kidneys are unremarkable. No calcified gallstones are seen. The spleen is mildly large measuring 13 cm in length. The bowel loops are nondistended without obstruction. There is moderate stool throughout the colon. No free fluid or free air is seen. The appendix is not seen, but no secondary findings of appendicitis are identified. No acute osseous abnormality is seen. The aorta is normal in caliber. IMPRESSION: 1. Mild periportal edema appears to be new. This is nonspecific, but recommend evaluation of liver function tests. 2. Mild splenomegaly. Report was faxed/called to Dr. Solomon by ingrid at 6:51AM. [place], was also notified. Dictated by: Dictated on workstation # [id number]
[2020-05-17] MEDS ORDERED: ONDA4TAB11 PO (11:04)
[2020-05-17] MEDS ORDERED: OXYC-471 PO (11:07)
== END 2020-05-15 01:05 | disposition home or self-care (01) ==
LOC: EDUNIT# 22:20 → ER 22:22
DX: R10.11 Right upper quadrant pain (principal); N39.0 Urinary tract infection, site not specified; Z37.9 Outcome of delivery, unspecified
CPT/HCPCS: 36415; 74022; 74177; 80053; 81000; 82150; 83690; 85025; 87088

== ENCOUNTER → 2020-05-17 | Outpatient (CLI) | payer MEDICAID ==
[~2020-05-17] MED LIST changes: +ACHD5005 PO; +ONDA4TAB11 PO; +OXYC-471 PO
--- NOTE | 2020-05-17 11:20 | Diagnostic Imaging Report ---
Clinical indication: Patient with right upper quadrant pain, nausea and UTI. EXAM: Right upper quadrant ultrasound. COMPARISON: CT scan of the abdomen and pelvis with contrast dated 05/14/2020. IMPRESSION: The pancreas has normal appearance and echogenicity with no mass seen. The abdominal aorta and IVC are unremarkable. The liver measures 16.3 cm in craniocaudal dimension. The liver has normal echogenicity. The liver surface is smooth. There is no liver mass. The main portal vein demonstrates hepatopetal flow. There is no intrahepatic or extrahepatic ductal dilation. Common bile duct measures 5 mm. There are multiple small stones with posterior shadowing seen within the gallbladder fundus which are mobile. There is no gallbladder wall thickening. There is no pericholecystic fluid. The gallbladder is mild to moderately fluid filled. There is minimal fluid in Morison's pouch seen. IMPRESSION: 1: Cholelithiasis with no definitive ultrasound evidence of cholecystitis. There is minimal fluid in Melendez's pouch. Clinical correlation is suggested for better evaluation. 2: The remainder of this exam is unremarkable. Dictated by: Dictated on workstation # [id number]
== END ==
LOC: RAD 10:10
PROVIDERS: ATTEND Family Medicine
DX: K80.20 Calculus of gallbladder without cholecystitis without obstruction (principal); N39.0 Urinary tract infection, site not specified
CPT/HCPCS: 76705

== ENCOUNTER 2020-05-26 15:45 | Day surgery (SDC) | payer MEDICAID ==
[2020-05-26] VITALS (7 sets, daily range): BP systolic 109–128; BP diastolic 62–80
[~2020-05-26] VITALS: Ht 160 cm; Wt 76.7 kg
[2020-05-26] MEDS ORDERED: fentaNYL INJECTION 100 MCG/2 ML AMP IVP ONE (16:30)
[2020-05-26] MEDS ORDERED: ONDANSETRON 4 MG/2 ML (SDV) Z0FRAN IVP ONE ×2 (16:30→18:00)
[2020-05-26 16:31] LABS: BASOPHILS % (AUTO) 0 % (0-10); EOSINOPHILS % (AUTO) 0 % (0-10); HEMATOCRIT 38 % (35-52); HEMOGLOBIN 12.6 g/dL (11.5-16.0); LYMPHOCYTES # (AUTO) 1.7 10^3/uL (1.0-4.0); LYMPHOCYTES % (AUTO) 24 % (12-44); MEAN CORPUSCULAR HEMOGLOBIN 30 pg (25-34); MEAN CORPUSCULAR HGB CONC 33 g/dL (32-36); MEAN CORPUSCULAR VOLUME 91 fL (80-99); MEAN PLATELET VOLUME 10.1 fL (9.0-12.2); MONOCYTES # (AUTO) 0.4 10^3/uL (0.0-1.0); MONOCYTES % (AUTO) 6 % (0-12); NEUTROPHILS # (AUTO) 4.8 10^3/uL (1.8-7.8); NEUTROPHILS % (AUTO) 68 % (42-75); PLATELET COUNT 346 10^3/uL (130-400); WHITE BLOOD COUNT 7.1 10^3/uL (4.3-11.0)
[2020-05-26 16:42] LABS: ALBUMIN 4.5 GM/DL (3.2-4.5); CHLORIDE 103 MMOL/L (98-107); POTASSIUM 3.6 MMOL/L (3.6-5.0); SODIUM 139 MMOL/L (135-145)
[2020-05-26 16:43] LABS: AMYLASE 67 U/L (25-125); CALCIUM 9.5 MG/DL (8.5-10.1)
[2020-05-26 16:44] LABS: GLUCOSE 97 MG/DL (70-105); TOTAL PROTEIN 7.9 GM/DL (6.4-8.2)
[2020-05-26 16:45] LABS: CARBON DIOXIDE 25 MMOL/L (21-32)
[2020-05-26 16:46] LABS: BILIRUBIN,TOTAL 0.7 MG/DL (0.1-1.0)
[2020-05-26 16:48] LABS: ALKALINE PHOSPHATASE 177 U/L (40-136); CREATININE SERUM 0.64 MG/DL (0.60-1.30); GFR ESTIMATED > 60
[2020-05-26 16:49] LABS: BUN/CREATININE RATIO 19
[2020-05-26 16:51] LABS: ALANINE AMINOTRANSFERASE 299 U/L (0-55); LIPASE 25 U/L (8-78)
--- NOTE | 2020-05-26 16:52 | ED Abdominal Pain ---
General Chief Complaint: Abdominal/GI Problems Stated Complaint: ABD PAIN Nursing Triage Note: PT ARRIVED BY PRIVATE VEHICLE WITH CHIEF COMPLAINT OF ABDOMINAL PAIN. PT HAS BEEN SEEN MULTIPLE TIMES IN THE ER FOR ABDOMINAL PAIN AND WAS TOLD SHE NEEDED AN US. PT GOT HER US AND IT STATED THAT SHE NEEDED HER GALLBLADDER TAKEN OUT. PT STATED THE MEDICATIONS SHE WAS PRESCRIBED ARE NOT WORKING ANYMORE. PT RIOS BEEEN VOMITING RIGHT AFTER SHE EATS. PT STATED HER PAIN IS A 10. PT DENIES ALLERGIES TO MEDICATIONS. PT WAS ALERT, ORIENTED X 4 AND AMBULATORY ON ARRIVAL. VITAL SIGNS WERE TAKEN, URINE WAS OBTAINED AND IV WAS STARTED WITH BLOOD DRAW. Sepsis Screen: No Definite Risk Source of Information: Patient Exam Limitations: No Limitations History of Present Illness Date Seen by Provider: May 26, 2020 Time Seen by Provider: 16:20 Initial Comments Patient is a 19-year-old female who presents to the emergency room today with a chief complaint of right upper quadrant abdominal pain. Patient states that she started having issues with abdominal pain shortly after delivering her baby about 1 month ago. Patient states that she was given medications from an ER visit that initially helped but now they are not helping at all. Patient states that she is now having significant nausea and vomiting with anything that she eats. She states she was very careful to avoid fatty or fried foods. She states nothing is helping. Patient states she did take some pain medicines this morning without any relief of symptoms. She denies any fevers, chills, denies hematemesis, denies black or bloody stools. She is currently nauseated and complaining of significant pain in the right upper quadrant. She is breast-feeding. All other review of systems reviewed and negative except as stated above. Timing/Duration: Constant, Getting Worse Severity/Quality: Severe, Sharp Location: RUQ Radiation: Flank Activities at Onset: None Modifying Factors: Worsens With Eating Allergies and Home Medications Allergies Coded Allergies: No Known Drug Allergies (Unverified , 11/17/08) Home Medications Cefdinir 300 Mg Capsule, 300 MG PO BID Prescribed by: GENI HO on 05/15/20 0030 Cephalexin 500 Mg Capsule, 500 MG PO TID Prescribed by: DEVYN CEE on 05/09/20 2344 Ferrous Sulfate 325 Mg Tablet, 325 MG PO DAILY@0700 Prescribed by: LEON GOULD on 04/21/20 0901 Hydrocodone/Acetaminophen 1 Each Tablet, 1 EACH PO Q4-6 HOURS PRN for PAIN Prescribed by: GENI HO on 05/15/20 003 Hyoscyamine Sulfate 0.125 Mg Tab.subl, 0.25 MG SL Q4H Prescribed by: GENI HO on 05/15/2029 Ibuprofen 600 Mg Tablet, 600 MG PO Q6HR PRN for PAIN-MODERATE (5-7) Prescribed by: LEON GOULD on 04/21/20 09 Ondansetron 4 Mg Tab.rapdis, 4 MG PO Q6H PRN for NAUSEA/VOMITING Prescribed by: EDITA HUNT on 05/17/20 110 Oxycodone HCl/Acetaminophen 1 Each Tablet, 1 EACH PO Q4H PRN for PAIN-MODERATE Prescribed by: EDITA HUNT on 05/17/20 110 Pantoprazole Sodium 40 Mg Tablet.dr, 40 MG PO DAILY Prescribed by: GENI HO on 05/15/2029 Vit/Iron Fumarate/FA 1 Each Tablet, 1 EACH PO DAILY, (Reported) Patient Home Medication List Home Medication List Reviewed: Yes Review of Systems Review of Systems Constitutional: no symptoms reported EENTM: No Symptoms Reported Respiratory: No Symptoms Reported Cardiovascular: No Symptoms Reported Gastrointestinal: Abdominal Pain, Nausea Genitourinary: No Symptoms Reported Musculoskeletal: no symptoms reported Skin: no symptoms reported All Other Systems Reviewed Negative Unless Noted: Yes Past Gmxtvpc-Bjkjyl-Fhvqwx Hx Patient Social History Alcohol Use: Denies Use Recreational Drug Use: No Smoking Status: Never a Smoker 2nd Hand Smoke Exposure: No Recent Foreign Travel: No Contact w/Someone Who Travel: No Recent Infectious Disease Expo: No Recent Hopitalizations: Yes (delivery 04/20) Physical Abuse: No Sexual Abuse: No Mistreated: No Fear: No Immunizations Up To Date Tetanus Booster (TDap): Less than 5yrs PED Vaccines UTD: Yes Date of Influenza Vaccine: Apr 04, 2020 Seasonal Allergies Seasonal Allergies: No Past Medical History Surgeries: Yes Tonsillectomy Respiratory: Yes Asthma Cardiac: No Neurological: No Reproductive Disorders: No Female Reproductive Disorders: Denies Sexually Transmitted Disease: Yes (CHLAMYDIA IN AUGUST- TREATED) HIV/AIDS: No Genitourinary: No Gastrointestinal: Yes Ulcer Musculoskeletal: No Endocrine: No HEENT: No Cancer: No Psychosocial: No Integumentary: No Blood Disorders: No Adverse Reaction/Blood Tranf: No Family Medical History FH: hyperlipidemia (MOTHER) FHx: asthma (SIBLING) No Pertinent Family Hx Physical Exam Vital Signs Vital Signs - First Documented 05/26/20 16:10 Temp 36.5 Pulse 79 Resp 16 B/P (MAP) 111/77 (88) Pulse Ox 97 O2 Delivery Room Air Capillary Refill : Less Than 3 Seconds Height/Weight/BMI Height: 5'3.00" Weight: 180lbs. oz. 81.611265wg; 29.00 BMI Method:Stated General Appearance: WD/WN, moderate distress Respiratory: lungs clear, normal breath sounds, no respiratory distress, no accessory muscle use Cardiovascular: regular rate, rhythm Gastrointestinal: soft, tenderness, other (Positive Alvarado sign) Extremities: normal range of motion, non-tender, normal inspection, no pedal edema Neurologic/Psychiatric: alert, normal mood/affect, oriented x 3 Skin: normal color, warm/dry Progress/Results/Core Measures Results/Orders Lab Results Laboratory Tests Test 05/26/20 16:20 Range/Units White Blood Count 7.1 4.3-11.0 10^3/uL Red Blood Count 4.21 3.80-5.11 10^6/uL Hemoglobin 12.6 11.5-16.0 g/dL Hematocrit 38 35-52 % Mean Corpuscular Volume 91 80-99 fL Mean Corpuscular Hemoglobin 30 25-34 pg Mean Corpuscular Hemoglobin Concent 33 32-36 g/dL Red Cell Distribution Width 13.1 10.0-14.5 % Platelet Count 346 130-400 10^3/uL Mean Platelet Volume 10.1 9.0-12.2 fL Immature Granulocyte % (Auto) 2 % Neutrophils (%) (Auto) 68 42-75 % Lymphocytes (%) (Auto) 24 12-44 % Monocytes (%) (Auto) 6 0-12 % Eosinophils (%) (Auto) 0 0-10 % Basophils (%) (Auto) 0 0-10 % Neutrophils # (Auto) 4.8 1.8-7.8 10^3/uL Lymphocytes # (Auto) 1.7 1.0-4.0 10^3/uL Monocytes # (Auto) 0.4 0.0-1.0 10^3/uL Eosinophils # (Auto) 0.0 0.0-0.3 10^3/uL Basophils # (Auto) 0.0 0.0-0.1 10^3/uL Immature Granulocyte # (Auto) 0.1 0.0-0.1 10^3/uL Sodium Level 139 135-145 MMOL/L Potassium Level 3.6 3.6-5.0 MMOL/L Chloride Level 103 98-107 MMOL/L Carbon Dioxide Level 25 21-32 MMOL/L Anion Gap 11 5-14 MMOL/L Glucose Level 97 70-105 MG/DL Calcium Level 9.5 8.5-10.1 MG/DL Corrected Calcium 9.1 8.5-10.1 MG/DL Total Bilirubin 0.7 0.1-1.0 MG/DL Total Protein 7.9 6.4-8.2 GM/DL Albumin 4.5 3.2-4.5 GM/DL Amylase Level 67 25-125 U/L My Orders Orders - FATOU FRANCOIS MD Ed Iv/Invasive Line Start (05/26/20 16:16) Cbc With Automated Diff (05/26/20 16:16) Comprehensive Metabolic Panel (05/26/20 16:16) Lipase (05/26/20 16:16) Amylase (05/26/20 16:16) Fentanyl Injection (Sublimaze Injection (05/26/20 16:30) Ondansetron Injection (Zofran Injectio (05/26/20 16:30) Medications Given in ED Current Medications Medications Dose Ordered Sig/Graciela Route Start Time Stop Time Status Last Admin Dose Admin Fentanyl Citrate 50 mcg ONCE ONCE IVP 05/26/20 16:30 05/26/20 16:31 DC 05/26/20 16:32 50 MCG Ondansetron HCl 4 mg ONCE ONCE IVP 05/26/20 16:30 05/26/20 16:31 DC 05/26/20 16:33 4 MG Vital Signs/I&O 05/26/20 16:10 Temp 36.5 Pulse 79 Resp 16 B/P (MAP) 111/77 (88) Pulse Ox 97 O2 Delivery Room Air Blood Pressure Mean: 88 Departure Communication (Admissions) Time/Spoke to Admitting Phy: 16:[address] Garcia will admit for cholecystectomy Impression Primary Impression: Abdominal pain Qualified Codes: R10.11 - Right upper quadrant pain Additional Impressions: Biliary colic Cholelithiasis Disposition: HOME, SELF-CARE Condition: Stable Admissions Decision to Admit Reason: Admit from ER (General) Decision to Admit/Date: May 26, 2020 Time/Decision to Admit Time: 16:51 Departure-Patient Inst. Referrals: [facility] (PCP/Family) Primary Care Physician FATOU FRANCOIS MD May 26, 2020 16:51
--- NOTE | 2020-05-26 17:04 | Consultation - Surgery ---
History of Present Illness History of Present Illness Patient Consulted On(david/time) 05/26/20 16:59 Time Seen by Provider: 16:44 History of Present Illness Surgery asked to consult regarding RUQ pain, R/O acute cholecystitis HPI per ED: PT ARRIVED BY PRIVATE VEHICLE WITH CHIEF COMPLAINT OF ABDOMINAL PAIN. PT HAS BEEN SEEN MULTIPLE TIMES IN THE ER FOR ABDOMINAL PAIN AND WAS TOLD SHE NEEDED AN US. PT GOT HER US AND IT STATED THAT SHE NEEDED HER GALLBLADDER TAKEN OUT. PT STATED THE MEDICATIONS SHE WAS PRESCRIBED ARE NOT WORKING ANYMORE. PT HAS BEEN VOMITING RIGHT AFTER SHE EATS. PT STATED HER PAIN IS A 10. Initial Comments Patient is a 19-year-old female who presents to the emergency room today with a chief complaint of right upper quadrant abdominal pain. Patient states that she started having issues with abdominal pain shortly after delivering her baby about 1 month ago. Patient states that she was given medications from an ER visit that initially helped but now they are not helping at all. Patient states that she is now having significant nausea and vomiting with anything that she eats. She states she was very careful to avoid fatty or fried foods. She states nothing is helping. Patient states she did take some pain medicines this morning without any relief of symptoms. She denies any fevers, chills, denies hematemesis, denies black or bloody stools. She is currently nauseated and complaining of significant pain in the right upper quadrant. She is breast-feeding. Timing/Duration: Constant, Getting Worse Severity/Quality: Severe, Sharp Location: RUQ Radiation: Flank Activities at Onset: None Modifying Factors: Worsens With Eating When I spoke to pt she states this is her third visit to the ER with the same complaints. Nothing makes it better. She states her mother had the same problem and had emergency surgery after she delivered her first baby. Allergies and Home Medications Allergies Coded Allergies: No Known Drug Allergies (Unverified , 11/17/08) Home Medications Cefdinir 300 Mg Capsule, 300 MG PO BID Prescribed by: GENI HO on 05/15/20 0030 Cephalexin 500 Mg Capsule, 500 MG PO TID Prescribed by: DEVYN CEE on 05/09/20 2344 Ferrous Sulfate 325 Mg Tablet, 325 MG PO DAILY@0700 Prescribed by: LEON GOULD on 04/21/20 0901 Hydrocodone/Acetaminophen 1 Each Tablet, 1 EACH PO Q4-6 HOURS PRN for PAIN Prescribed by: GENI HO on 05/15/20 003 Hyoscyamine Sulfate 0.125 Mg Tab.subl, 0.25 MG SL Q4H Prescribed by: GENI HO on 05/15/20 003 Ibuprofen 600 Mg Tablet, 600 MG PO Q6HR PRN for PAIN-MODERATE (5-7) Prescribed by: LEON GOULD on 04/21/20 0901 Ondansetron 4 Mg Tab.rapdis, 4 MG PO Q6H PRN for NAUSEA/VOMITING Prescribed by: EDITA HUNT on 05/17/20 110 Oxycodone HCl/Acetaminophen 1 Each Tablet, 1 EACH PO Q4H PRN for PAIN-MODERATE Prescribed by: EDITA HUNT on 05/17/20 110 Pantoprazole Sodium 40 Mg Tablet.dr, 40 MG PO DAILY Prescribed by: GENI HO on 05/15/2029 Vit/Iron Fumarate/FA 1 Each Tablet, 1 EACH PO DAILY, (Reported) Patient Home Medication List Home Medication List Reviewed: Yes Past Qpqrapx-Jziyij-Wetxdy Hx Patient Social History Alcohol Use: Denies Use Recreational Drug Use: No Smoking Status: Never a Smoker 2nd Hand Smoke Exposure: No Recent Foreign Travel: No Contact w/Someone Who Travel: No Recent Infectious Disease Expo: No Recent Hopitalizations: Yes (delivery 04/20) Immunizations Up To Date Tetanus Booster (TDap): Less than 5yrs PED Vaccines UTD: Yes Date of Influenza Vaccine: Apr 04, 2020 Seasonal Allergies Seasonal Allergies: No Surgeries History of Surgeries: Yes Surgeries: Tonsillectomy Respiratory History of Respiratory Disorde: Yes Respiratory Disorders: Asthma Cardiovascular History of Cardiac Disorders: No Neurological History of Neurological Disord: No Reproductive System Hx Reproductive Disorders: No Sexually Transmitted Disease: Yes (CHLAMYDIA IN AUGUST- TREATED) HIV/AIDS: No Female Reproductive Disorders: Denies Genitourinary History of Genitourinary Disor: No Gastrointestinal History of Gastrointestinal Di: Yes Gastrointestinal Disorders: Ulcer Musculoskeletal History of Musculoskeletal Dis: No Endocrine History of Endocrine Disorders: No HEENT History of HEENT Disorders: No Cancer History of Cancer: No Psychosocial History of Psychiatric Problem: No Integumentary History of Skin or Integumenta: No Blood Transfusions History of Blood Disorders: No Adverse Reaction to a Blood Tr: No Family Medical History Significant Family History: Cancer (denies), Diabetes (denies), Hypertension (denies), Other Conditions/Hx (States mother had GB out) Family Medial History: FH: hyperlipidemia (MOTHER) FHx: asthma ([place]LING) Review of Systems-General Constitutional: No chills; malaise EENTM: No blurred vision, No mouth swelling, No epistaxis, No throat swelling Respiratory: No cough, No dyspnea on exertion, No hemoptysis, No short of breath Cardiovascular: No chest pain, No edema, No palpitations Gastrointestinal: RUQ; No dysphagia, No jaundice; loss of appetite, nausea; No vomiting Genitourinary: No dysuria, No frequency, No hematuria Musculoskeletal: No joint pain, No joint swelling, No muscle pain, No muscle stiffness Skin: No change in color, No change in hair/nails Psychiatric/Neurological: Denies Anxiety, Denies Depressed, Denies Seizure, Denies Tremors Other pt denies any hx of abnormal bleeding or bruising Physical Exam-General Problems Physical Exam Vital Signs Vital Signs - First Documented 05/26/20 16:10 Temp 36.5 Pulse 79 Resp 16 B/P (MAP) 111/77 (88) Pulse Ox 97 O2 Delivery Room Air Capillary Refill : Less Than 3 Seconds General Appearance: WD/WN, mild distress, other (pt is very anxious about surgery) Eyes: Bilateral Eye PERRL, Bilateral Eye EOMI HEENT: pharynx normal; No scleral icterus (R), No scleral icterus (L) Neck: non-tender, full range of motion, supple, normal inspection Respiratory: lungs clear, normal breath sounds, no respiratory distress, no accessory muscle use Cardiovascular: regular rate, rhythm, no murmur Gastrointestinal: soft, no organomegaly, tenderness (RUQ mostly, some RLQ), hernia (small umbilical) Rectal: deferred Back: no CVA tenderness, no vertebral tenderness Extremities: normal range of motion, non-tender, normal inspection, no pedal edema, no calf tenderness, normal capillary refill Neurologic/Psychiatric: bale opener II-XII nml as tested, no motor/sensory deficits, alert, normal mood/affect, oriented x 3 Skin: normal color, warm/dry Lymphatic: no adenopathy (neck, axilla or groin) Data Review Labs Laboratory Tests 05/26/20 16:20: White Blood Count 7.1, Red Blood Count 4.21, Hemoglobin 12.6, Hematocrit 38, Mean Corpuscular Volume 91, Mean Corpuscular Hemoglobin 30, Mean Corpuscular Hemoglobin Concent 33, Red Cell Distribution Width 13.1, Platelet Count 346, Mean Platelet Volume 10.1, Immature Granulocyte % (Auto) 2, Neutrophils (%) (Auto) 68, Lymphocytes (%) (Auto) 24, Monocytes (%) (Auto) 6, Eosinophils (%) (Auto) 0, Basophils (%) (Auto) 0, Neutrophils # (Auto) 4.8, Lymphocytes # (Auto) 1.7, Monocytes # (Auto) 0.4, Eosinophils # (Auto) 0.0, Basophils # (Auto) 0.0, Immature Granulocyte # (Auto) 0.1, Sodium Level 139, Potassium Level 3.6, Chloride Level 103, Carbon Dioxide Level 25, Anion Gap 11, Blood Urea Nitrogen 12, Creatinine 0.64, Estimat Glomerular Filtration Rate > 60, BUN/Creatinine Ratio 19, Glucose Level 97, Calcium Level 9.5, Corrected Calcium 9.1, Total Bilirubin 0.7, Aspartate Amino Transf (AST/SGOT) 259H, Alanine Aminotransferase (ALT/SGPT) 299H, Alkaline Phosphatase 177H, Total Protein 7.9, Albumin 4.5, Amylase Level 67, Lipase 25 Radiology Date of Exam:05/17/20 US GALLBLADDER [id number] Clinical indication: Patient with right upper quadrant pain, nausea and UTI. EXAM: Right upper quadrant ultrasound. COMPARISON: CT scan of the abdomen and pelvis with contrast dated 05/14/2020. IMPRESSION: The pancreas has normal appearance and echogenicity with no mass seen. The abdominal aorta and IVC are unremarkable. The liver measures 16.3 cm in craniocaudal dimension. The liver has normal echogenicity. The liver surface is smooth. There is no liver mass. The main portal vein demonstrates hepatopetal flow. There is no intrahepatic or extrahepatic ductal dilation. Common bile duct measures 5 mm. There are multiple small stones with posterior shadowing seen within the gallbladder fundus which are mobile. There is no gallbladder wall thickening. There is no pericholecystic fluid. The gallbladder is mild to moderately fluid filled. There is minimal fluid in Morison's pouch seen. IMPRESSION: 1: Cholelithiasis with no definitive ultrasound evidence of cholecystitis. There is minimal fluid in Melendez's pouch. Clinical correlation is suggested for better evaluation. 2: The remainder of this exam is unremarkable. Dictated by: Dictated on workstation # [id number] Dict: 05/17/20 1111 Trans: 05/17/20 [address] [facility] [place] [id number] Interpreted by: AFRICA DIAL MD Electronically signed by: AFRICA DIAL MD 05/17/201709 Assessment/Plan Assessment/Plan Assessment/Plan Acute on Chronic Cholecystitis with Cholelithiasis Elevated LFT's Pt has had continued symptoms of RUQ pain usually associated with fatty foods and recent US showed Gallstones and questionable free fluid, but no thickened wall. Today her liver enzymes are elevated and I believe she has acute cholecysitis with cholelithiasis. I recommend Laparoscopic Cholecystectomy with possible cholangiogram, possible open. She needs IV fluids, pain control, anti-emetics and to the OR. I think if everything goes well she can probably even go home today. Risks and complications discussed with the pt; not limited to pain, bleeding, infection, scar damage to bowel or bile ducts and need for further procedure. All questions answered to her satisfation. TATYANA HDZ DO May 26, 2020 17:04
[2020-05-26] MEDS ORDERED: ceFAZolin 2 GM IV Premixed 50 ML IV ONE (17:15)
[2020-05-26] MEDS ORDERED: ceFAZolin INJECTION 0 MG ONE (17:24)
[2020-05-26] MEDS ORDERED: LIDOCAINE/EPI 1%-1:100,000 (XYLOCAINE) 50 ML ONE (17:37)
[2020-05-26] MEDS ORDERED: fentaNYL INJECTION 100 MCG/2 ML AMP ONE (17:39)
[2020-05-26] MEDS ORDERED: MIDAZOLAM 2 MG/2 ML (VERSED) VIAL ONE (17:39)
[2020-05-26] MEDS ORDERED: ceFAZolin INJECTION 2,000 MG ONE (17:55)
[2020-05-26] MEDS: LACTATED RINGERS 1,000 ML IV PRN ×2 (18:02→18:36)
--- NOTE | 2020-05-26 18:47 | Progress Note-Post Operative ---
Post-Operative Progess Note Surgeon (s)/Auto Design Detailer (s) Surgeon TATYANA HDZ DO Auto Design Detailer: Josias Pre-Operative Diagnosis Acute [place] Post-Operative Diagnosis same Procedure & Operative Findings Date of Procedure 05/26/20 Procedure Performed/Findings PROCEDURE: Laparoscopic cholecystectomy with intraoperative cholangiogram. COMPLICATIONS: None. PROCEDURE: The patient was taken to the operating suite and was prepped and draped in sterile fashion. A surgical pause was performed. Just superior to the umbilicus, a 12 mm incision was made. Dissection was taken down to the fascia, which was then scored and grasped with a Iggy and the abdomen was then entered. A 0 Vicryl suture was placed in a [id number] fashion and a Ramirez trocar was placed and secured. Pneumoperitoneum was achieved. A 5mm trochar place in the subxyphoid and 2 in the right upper quadrant. The gallbladder was then grasped and elevated. Noted to be erythematous and edematous. The cystic duct, and cystic artery were then dissected out. Clip was placed on the distal portion of the cystic duct which was then partially transected. An arrow catheter was inserted into the duct. The cholangiogram was then performed. No filing defects and contrast made its way into the duodenum. Catheter removed. Clips were placed on proximal portion of the cystic duct and then the duct was then transected. Clips were placed along the proximal and distal portion of the cystic artery which was then transected. Hook cautery was used to dissect the gallbladder from the gallbladder fossa achieving hemostasis. The gallbladder was placed in an Endobag and removed through the 12 mm trocar site. The abdomen was then reinspected. Copious amounts of irrigation were used to irrigate the abdomen and there were no signs of active bleeding. Hemostasis had been achieved. The 12 mm fascial defect was then closed with 0 Vicryl suture that had been placed in a [id number] fashion. The abdomen was then desufflated, the trocars were removed. The abdomen was then washed and dried. The skin was then closed using 4-0 Monocryl in a subcuticular fashion. The abdomen was washed and dried and Skin Affix was place over incisions. Patient tolerated the procedure well without any complications and was taken to the recovery room in stable condition. Dr. Ferrara assisted on this case helping to make incisions, close incisions, identify anatomy and hold anatomy out of the way. Anesthesia Type GET Estimated Blood Loss Estimated blood loss (mL): scant Specimens/Packing Specimens Removed GB and contents TATYANA HDZ DO May 26, 2020 18:47
--- NOTE | 2020-05-26 18:49 | Discharge Inst-Surgical ---
Discharge Inst-Surgical Depart Medication/Instructions New, Converted or Re-Newed RX: RX Given to Pt/Family Patient Instructions Follow up Appt: Make appointment for 1 week. [phone] Instructions: No lifting greater than 20 pounds. No strenuous activity. May shower in 24 hours, no tub bath or soaking. Use incentive spirometer at home as directed. No Smoking Skin/Wound Care: May remove bandages in am. You need to leave the Dermabond on incision it will fall off on it's own. Symptoms to Report: Appetite Changes, Extremity Discoloration, Numbness/Tingling, Swelling Increased, Bleeding Excessive, Eyesight Changes, Pain Increased, Urine Color Change, Constipation(Persistent), Fever over 101 degree F, Pain/Pressure in chest, Urinating Difficulty, Cough Up/Vomit Blood, Heart Beat Irreg/Pounding, Pain/Pressure in jaw, Cramps in feet or legs, Lightheadedness, Pain/Pressure in shoulder, Diarrhea(Persistent), Memory Changes Suddenly, Questions/Concerns, Weight gain consecutive days, Dizziness/Fainting, Nausea/Vomiting, Shortness of Breath, Weight gain over 2 pounds If questions or concerns contact your physician Or seek help at emergency department. Activity Driving Instructions: No Driving/Refer to Diet Discharge Diet: Avoid Fatty Foods, Low Fat/Low Cholesterol Diet After 24 Hours: Clear Liquid if Nauseous If Any Problems/Questions/Issu: Contact Your Physician, Go to Emergency Room Skin/Wound Care Infection Signs and Symptoms: Increased Redness, Foul Odor of Wound, Increased Drainage, Skin Itchy or Has a Rash, Increased Swelling, Temperature Above 101 F Wound Care Comment: heating pad to shoulder or neck tonight for pain Bathing Instructions: Shower Stitches/Krystin/Dermabond Dis: Dermabond Ice Pack: Ice On and Off Site TATYANA HDZ DO May 26, 2020 18:48
[2020-05-26] MEDS ORDERED: SEVOFLURANE (ULTANE) 15 ML INHAL SOLN ONE ×2 (18:50→18:57)
[2020-05-26] MEDS ORDERED: SUCCINYLCHOLINE INJ 100 MG/5 ML SYR/VIAL ONE (18:50)
[2020-05-26] MEDS ORDERED: LIDOCAINE PF 2% 5 ML (XYLOCAINE) VIAL ONE (18:50)
[2020-05-26] MEDS ORDERED: proPOfol 200 MG/20 ML (DIPRIVAN) VIAL IV ONE (18:50)
[2020-05-26] MEDS ORDERED: ONDANSETRON 4 MG/2 ML (SDV) Z0FRAN ONE (18:50)
[2020-05-26] MEDS ORDERED: ROCURONIUM 10 MG/ML 5 ML SYRINGE IV ONE (18:50)
[2020-05-26] MEDS ORDERED: morphine INJ 10 MG/ML 1ML (SYR OR VIAL) ONE (19:04)
--- NOTE | 2020-05-26 19:07 | Diagnostic Imaging Report ---
EXAMINATION: Fluoroscopy less than one hour. HISTORY: Cholecystectomy, fluoroscopic guidance. FINDINGS: Fluoroscopic guidance was provided for intraoperative cholangiogram. IMPRESSION: Fluoroscopic guidance for intraoperative cholangiogram. Dictated by: Dictated on workstation # [id number]
[2020-05-26] MEDS ORDERED: ONDANSETRON 4 MG/2 ML (SDV) Z0FRAN IVP PRN ×2 (19:30→20:15)
[2020-05-26] MEDS ORDERED: morphine INJ 10 MG/ML 1ML (SYR OR VIAL) IVP ONE ×2 (19:30→20:15)
--- NOTE | 2020-05-26 20:03 | Anesthesia-General Post-Op ---
General Patient Condition Mental Status/LOC: Same as Preop Cardiovascular: Satisfactory Nausea/Vomiting: Absent Respiratory: Satisfactory Pain: Controlled Complications: Absent Post Op Complications Complications None Follow Up Care/Instructions Patient Instructions None needed. Anesthesia/Patient Condition Patient Condition Patient is doing well, no complaints, stable vital signs, no apparent adverse anesthesia problems. No complications reported per nursing. JOSE VARMA CRNA May 26, 2020 20:03
[2020-05-26] MEDS ORDERED: HYDROmorphone 2 MG/ML VIAL (DILAUDID) IV ONE (20:15)
--- NOTE | 2020-05-26 22:30 | NUR ---
Patient discharged to home at this time. IV D/C'd, no redness, swelling or bleeding noted at site. Discharge instructions reviewed with patient, patient acknowledged understanding. Patient denies nausea, pain at this time. Patient did void prior to discharge. Instructed to set up F/U appointment and contact ED/physician with any concerns. Patient transported to private vehicle via wheelchair accompanied by PCT. All personal belongings taken with patient.
== END 2020-05-26 22:30 | disposition home or self-care (01) ==
LOC: EDUNIT# 15:45 → ER 15:47 → 4TH 15:47 → ER 17:50 → 4TH 05-27 01:07
PROVIDERS: ATTEND Surgery
DX: K80.10 Calculus of gallbladder with chronic cholecystitis without obstruction (principal); J45.909 Unspecified asthma, uncomplicated
CPT/HCPCS: 36415; 76000; 80053; 82150; 83690; 84703; 85025; 88304; 96374; 96375

== ENCOUNTER 2020-05-28 22:14 | Emergency (ER) | payer MEDICAID ==
[~2020-05-28] VITALS: Ht 157 cm; Wt 76.7 kg
[2020-05-28 22:48] LABS: BASOPHILS % (AUTO) 0 % (0-10); EOSINOPHILS % (AUTO) 0 % (0-10); HEMATOCRIT 40 % (35-52); HEMOGLOBIN 13.2 g/dL (11.5-16.0); LYMPHOCYTES # (AUTO) 1.8 10^3/uL (1.0-4.0); LYMPHOCYTES % (AUTO) 18 % (12-44); MEAN CORPUSCULAR HEMOGLOBIN 30 pg (25-34); MEAN CORPUSCULAR HGB CONC 33 g/dL (32-36); MEAN CORPUSCULAR VOLUME 92 fL (80-99); MEAN PLATELET VOLUME 10.4 fL (9.0-12.2); MONOCYTES # (AUTO) 0.5 10^3/uL (0.0-1.0); MONOCYTES % (AUTO) 5 % (0-12); NEUTROPHILS # (AUTO) 7.4 10^3/uL (1.8-7.8); NEUTROPHILS % (AUTO) 76 % (42-75); PLATELET COUNT 378 10^3/uL (130-400); WHITE BLOOD COUNT 9.7 10^3/uL (4.3-11.0)
--- NOTE | 2020-05-28 22:55 | ED GI ---
General Chief Complaint: Abdominal/GI Problems Stated Complaint: POST OP/ABD PAIN Nursing Triage Note: States is unable to have a bowel movement. reports having surgery a few days ago and has been taking pain medication due to the pain from that. Attempted miralax x 1, prune juice, and some 'oil' her parents gave her. Sepsis Screen: No Definite Risk Source of Information: Patient, Old Records History of Present Illness Date Seen by Provider: May 28, 2020 Time Seen by Provider: 22:22 Initial Comments PT ARRIVES VIA POV FROM HOME C/O RECTAL PAIN, WITH BM'S --HAD SMALL, HARD BM 3 HOURS AGO AND WAS VERY PAINFUL ONGOING SINCE 05/26/20 NO RECTAL BLEEDING NO NAUSEA/VOMITING NO URINARY SYMPTOMS PT HAD LAP CHOLECYSTECTOMY BY DR. HDZ ON 05/26/20 HAS BEEN TAKING PAIN MEDICATIONS BEFORE AND AFTER SURGERY HAS NOT ATTEMPTED TO CONTACT HER SURGEON OR PCP AT ANY TIME FOR THIS PROBLEM PT DRANK SOME PRUNE JUICE, SOME TYPE OF "OIL", AND TOOK MIRALAX IMMEDIATELY PRIOR TO ARRIVAL, THEN CAME STRAIGHT HERE HAS NOT ATTEMPTED TO TAKE ANYTHING ELSE FOR SYMPTOMS AT ANY TIME--HAS NOT TRIED SUPPOSITORIES OR ENEMAS, OR OTC TOPICAL MEDICATIONS PT DELIVERED 04/19/20. WITH EPIDURAL. NO RECTAL INJURY DURING DELIVERY PT HAD NEGATIVE TEST ON 05/26/20 Allergies and Home Medications Allergies Coded Allergies: No Known Drug Allergies (Unverified , 11/17/08) Home Medications Cefdinir 300 Mg Capsule, 300 MG PO BID Prescribed by: GENI HO on 05/15/20 0030 Cephalexin 500 Mg Capsule, 500 MG PO TID Prescribed by: DEVYN CEE on 05/09/20 2344 Ferrous Sulfate 325 Mg Tablet, 325 MG PO DAILY@0700 Prescribed by: LEON GOULD on 04/21/20 0901 Hydrocodone/Acetaminophen 1 Each Tablet, 1 EACH PO Q4-6 HOURS PRN for PAIN Prescribed by: GENI HO on 05/15/20 0030 Hyoscyamine Sulfate 0.125 Mg Tab.subl, 0.25 MG SL Q4H Prescribed by: GENI HO on 05/15/20 003 Ibuprofen 600 Mg Tablet, 600 MG PO Q6HR PRN for PAIN-MODERATE (5-7) Prescribed by: LEON GOULD on 04/21/20 0901 Nitrofurantoin Monohyd/M-Cryst 100 Mg Capsule, 1 TAB PO BID Prescribed by: GENI HO on 05/28/20 2328 Ondansetron 4 Mg Tab.rapdis, 4 MG PO Q6H PRN for NAUSEA/VOMITING Prescribed by: EDITA HUNT on 05/17/20 1104 Oxycodone HCl/Acetaminophen 1 Each Tablet, 1 EACH PO Q4H PRN for PAIN-MODERATE Prescribed by: EDITA HUNT on 05/17/20 1108 Pantoprazole Sodium 40 Mg Tablet.dr, 40 MG PO DAILY Prescribed by: GENI HO on 05/15/20 0030 Vit/Iron Fumarate/FA 1 Each Tablet, 1 EACH PO DAILY, (Reported) Patient Home Medication List Home Medication List Reviewed: Yes Review of Systems Review of Systems Constitutional: no symptoms reported Gastrointestinal: See HPI, Constipated; Denies Nausea, Denies Poor Appetite, Denies Poor Fluid Intake, Denies Vomiting Genitourinary: No Symptoms Reported Past Eammcgr-Cvvcrt-Yrjjwi Hx Past Med/Social Hx: Reviewed and Corrections made Patient Social History Alcohol Use: Denies Use Recreational Drug Use: No 2nd Hand Smoke Exposure: No Recent Foreign Travel: No Contact w/Someone Who Travel: No Recent Infectious Disease Expo: No Recent Hopitalizations: No Immunizations Up To Date Tetanus Booster (TDap): Less than 5yrs PED Vaccines UTD: Yes Date of Influenza Vaccine: Apr 04, 2020 Seasonal Allergies Seasonal Allergies: No Past Medical History Surgeries: Yes Tonsillectomy Respiratory: Yes Asthma Cardiac: No Neurological: No : No Hx : 1 Hx Para: 1 (DELLIVERED 04/19/20 VIA WITH EPIDURAL.NO COMPLICATIONS) Hx Total # of Abortions (Sp): 0 Reproductive Disorders: No Female Reproductive Disorders: Denies Sexually Transmitted Disease: Yes (CHLAMYDIA IN AUGUST- TREATED) HIV/AIDS: No Genitourinary: No Gastrointestinal: Yes Ulcer Musculoskeletal: No Endocrine: No HEENT: No Cancer: No Psychosocial: No Integumentary: No Blood Disorders: No Adverse Reaction/Blood Tranf: No Family Medical History FH: hyperlipidemia (MOTHER) FHx: asthma (SIBLING) Cancer, Diabetes, Hypertension, Other Conditions/Hx Physical Exam Vital Signs Vital Signs - First Documented 05/28/20 22:23 Temp 36.8 Pulse 98 Resp 18 B/P (MAP) 90/61 (71) Pulse Ox 96 Capillary Refill : Less Than 3 Seconds Height/Weight/BMI Height: 5'3.00" Weight: 180lbs. oz. 81.359261ns; 31.00 BMI Method:Stated General Appearance: WD/WN, no apparent distress, other (ANXIOUS, PACING, HOLDING LEFT FLANK, DOES NOT WANT TO SIT OR LAY DOWN) Respiratory: normal breath sounds, no respiratory distress, no accessory muscle use Cardiovascular: regular rate, rhythm, no murmur Gastrointestinal: non tender, soft Rectal: other (UNABLE TO DIGITAL RECTAL EXAM DUE TO PT DISCOMFORT. NO OBVIOUS RECTAL BLEEDING OR FISSURES OR HEMORRHOIDS. ) Extremities: normal inspection Back: no CVA tenderness Neurologic/Psychiatric: no motor/sensory deficits, alert, oriented x 3 Skin: warm/dry; No rash Progress/Results/Core Measures Results/Orders Lab Results Laboratory Tests Test 05/28/20 22:40 05/28/20 23:10 Range/Units White Blood Count 9.7 4.3-11.0 10^3/uL Red Blood Count 4.37 3.80-5.11 10^6/uL Hemoglobin 13.2 11.5-16.0 g/dL Hematocrit 40 35-52 % Mean Corpuscular Volume 92 80-99 fL Mean Corpuscular Hemoglobin 30 25-34 pg Mean Corpuscular Hemoglobin Concent 33 32-36 g/dL Red Cell Distribution Width 13.2 10.0-14.5 % Platelet Count 378 130-400 10^3/uL Mean Platelet Volume 10.4 9.0-12.2 fL Immature Granulocyte % (Auto) 0 % Neutrophils (%) (Auto) 76 H 42-75 % Lymphocytes (%) (Auto) 18 12-44 % Monocytes (%) (Auto) 5 0-12 % Eosinophils (%) (Auto) 0 0-10 % Basophils (%) (Auto) 0 0-10 % Neutrophils # (Auto) 7.4 1.8-7.8 10^3/uL Lymphocytes # (Auto) 1.8 1.0-4.0 10^3/uL Monocytes # (Auto) 0.5 0.0-1.0 10^3/uL Eosinophils # (Auto) 0.0 0.0-0.3 10^3/uL Basophils # (Auto) 0.0 0.0-0.1 10^3/uL Immature Granulocyte # (Auto) 0.0 0.0-0.1 10^3/uL Sodium Level 140 135-145 MMOL/L Potassium Level 3.9 3.6-5.0 MMOL/L Chloride Level 105 98-107 MMOL/L Carbon Dioxide Level 24 21-32 MMOL/L Anion Gap 11 5-14 MMOL/L Blood Urea Nitrogen 13 7-18 MG/DL Creatinine 0.68 0.60-1.30 MG/DL Estimat Glomerular Filtration Rate > 60 BUN/Creatinine Ratio 19 Glucose Level 110 H 70-105 MG/DL Calcium Level 9.7 8.5-10.1 MG/DL Corrected Calcium 9.3 8.5-10.1 MG/DL Total Bilirubin 0.3 0.1-1.0 MG/DL Aspartate Amino Transf (AST/SGOT) 72 H 5-34 U/L Alanine Aminotransferase (ALT/SGPT) 263 H 0-55 U/L Alkaline Phosphatase 189 H 40-136 U/L Total Protein 8.2 6.4-8.2 GM/DL Albumin 4.5 3.2-4.5 GM/DL Amylase Level 56 25-125 U/L Lipase 22 8-78 U/L Urine Color YELLOW Urine Clarity CLOUDY Urine pH 6.5 5-9 Urine Specific [place] 1.015 L 1.016-1.022 Urine Protein NEGATIVE NEGATIVE Urine Glucose (UA) NEGATIVE NEGATIVE Urine Ketones NEGATIVE NEGATIVE Urine Nitrite NEGATIVE NEGATIVE Urine Bilirubin NEGATIVE NEGATIVE Urine Urobilinogen 0.2 < = 1.0 MG/DL Urine Leukocyte Esterase 1+ H NEGATIVE Urine RBC (Auto) 2+ H NEGATIVE Urine RBC RARE /HPF Urine WBC 10-25 H /HPF Urine Squamous Epithelial Cells 10-25 H /HPF Urine Crystals NONE /LPF Urine Bacteria FEW H /HPF Urine Casts NONE /LPF Urine Mucus NEGATIVE /LPF Urine Culture Indicated YES My Orders Orders - GENI HO DO Ed Iv/Invasive Line Start (05/28/20 22:20) Acute Abd Series (05/28/20 22:20) Amylase (05/28/20 22:20) Cbc With Automated Diff (05/28/20 22:20) Comprehensive Metabolic Panel (05/28/20 22:20) Lipase (05/28/20 22:20) Ua Culture If Indicated (05/28/20 22:20) Urine Culture (05/28/20 23:10) Vital Signs/I&O 05/28/20 05/28/20 22:23 23:31 Temp 36.8 36.8 Pulse 98 98 Resp 18 18 B/P (MAP) 90/61 (71) 104/64 (71) Pulse Ox 96 96 Blood Pressure Mean: 71 Diagnostic Imaging Comments ABDOMEN XRAYS--CONSTIPATION, WITH RECTAL IMPACTION. NO OBSTRUCTION. PENDING RADIOLOGIST REVIEW Reviewed: Reviewed by Me Departure Impression Primary Impression: Constipation Additional Impressions: Fecal impaction in rectum S/P laparoscopic cholecystectomy UTI (urinary tract infection) Disposition: HOME, SELF-CARE Condition: Stable Departure-Patient Inst. Referrals: [facility] (PCP/Family) Primary Care Physician Patient Instructions: Fecal Impaction (DC), Constipation, Adult (DC), Urinary Tract Infection, Adult ED Add. Discharge Instructions: CLEAR LIQUIDS--WATER, BROTH, JELLO, GATORADE NO FOOD UNTIL YOUR BOWELS HAVE MOVED AFTER YOUR BOWELS HAVE MOVED, START A HIGH FIBER DIET TAKE MIRALAX EVERY 2-3 HOURS UNTIL YOUR BOWELS HAVE MOVED, THEN TAKE ONCE A DAY EVERY DAY USE FLEET'S ENEMAS AND DULCOLAX SUPPOSITORIES RECTALLY FOR BOWEL MOVEMENT USE PREPARATION H OVER THE COUNTER FOR RECTAL PAIN AVOID NARCOTIC PAIN MEDICATIONS IF POSSIBLE FOLLOW UP WITH YOUR DR IN 2-3 DAYS IF NO BETTER All discharge instructions reviewed with patient and/or family. Voiced understanding. Scripts Nitrofurantoin Monohyd/M-Cryst (Macrobid 100 mg Capsule) 100 Mg Capsule 1 TAB PO BID, #20 CAP Prov: GENI HO DO 05/28/20 GENI HO DO May 28, 2020 22:55
[2020-05-28 23:09] LABS: ALANINE AMINOTRANSFERASE 263 U/L (0-55); ALBUMIN 4.5 GM/DL (3.2-4.5); ALKALINE PHOSPHATASE 189 U/L (40-136); AMYLASE 56 U/L (25-125); BILIRUBIN,TOTAL 0.3 MG/DL (0.1-1.0); BUN/CREATININE RATIO 19; CALCIUM 9.7 MG/DL (8.5-10.1); CARBON DIOXIDE 24 MMOL/L (21-32); CHLORIDE 105 MMOL/L (98-107); CREATININE SERUM 0.68 MG/DL (0.60-1.30); GFR ESTIMATED > 60; GLUCOSE 110 MG/DL (70-105); LIPASE 22 U/L (8-78); POTASSIUM 3.9 MMOL/L (3.6-5.0); SODIUM 140 MMOL/L (135-145); TOTAL PROTEIN 8.2 GM/DL (6.4-8.2)
[2020-05-28 23:15] LABS: BILIRUBIN,URINE NEGATIVE (NEGATIVE); CLARITY,URINE CLOUDY; COLOR,URINE YELLOW; GLUCOSE, URINE (UA) NEGATIVE (NEGATIVE); KETONES,URINE NEGATIVE (NEGATIVE); LEUKOCYTE ESTERASE ,URINE 1+ (NEGATIVE); NITRITE,URINE NEGATIVE (NEGATIVE); PH,URINE 6.5 (5-9); PROTEIN,URINE NEGATIVE (NEGATIVE)
[2020-05-28 23:20] LABS: BACTERIA,URINE FEW /HPF; RBC,URINE RARE /HPF
[2020-05-28] MEDS ORDERED: NITR-65 PO (23:28)
[2020-05-28 23:31] VITALS: BP 104/64
--- NOTE | 2020-05-29 07:41 | Diagnostic Imaging Report ---
INDICATION: Unable to have bowel movement. Having surgery a few days ago. TECHNIQUE: Single view chest with supine and upright radiographs of the abdomen. CORRELATION STUDY: Chest and abdomen 05/14/2020 FINDINGS: Frontal radiograph of the chest demonstrates no acute abnormality. There is moderate stool retention throughout the colon. No evidence for large fecal impaction. No differential air-fluid levels or findings suggest obstructive process. There is note made of a trace amount of free air below the right diaphragm medially. Costectomy clips in the right upper quadrant. IMPRESSION: 1. Negative for acute cardiopulmonary abnormality. 2. Moderate severity constipation. 3. Small amount of free air below the right diaphragm compatible with history of recent surgery. Dictated by: Dictated on workstation # [id number]
== END 2020-05-28 23:37 | disposition home or self-care (01) ==
LOC: EDUNIT# 22:14 → ER 22:16
DX: K59.00 Constipation, unspecified (principal); N39.0 Urinary tract infection, site not specified; F41.9 Anxiety disorder, unspecified; Z90.49 Acquired absence of other specified parts of digestive tract; Z80.9 Family history of malignant neoplasm, unspecified; Z82.49 Family history of ischemic heart disease and other diseases of the circulatory system; Z83.3 Family history of diabetes mellitus
CPT/HCPCS: 36415; 74022; 80053; 81000; 82150; 83690; 85025; 87088

== ENCOUNTER 2021-08-24 23:48 | Emergency (ER) | payer MEDICAID ==
[~2021-08-24] VITALS: Ht 160 cm; Wt 85.7 kg
[~2021-08-24 23:48] MED LIST changes: +NITR-65 PO; -OXYC-471 PO; +OXYC1TAB11 PO; -SULF1TAB35 PO; +SULF1TAB38 PO
[2021-08-25] MEDS ORDERED: LACTATED RINGERS 1,000 ML IV ONE ×2 (00:06→00:15)
[2021-08-25 00:07] LABS: BILIRUBIN,URINE NEGATIVE (NEGATIVE); CLARITY,URINE CLEAR; COLOR,URINE YELLOW; GLUCOSE, URINE (UA) NEGATIVE (NEGATIVE); KETONES,URINE NEGATIVE (NEGATIVE); LEUKOCYTE ESTERASE ,URINE 2+ (NEGATIVE); NITRITE,URINE NEGATIVE (NEGATIVE); PH,URINE 6.5 (5-9); PROTEIN,URINE NEGATIVE (NEGATIVE)
[2021-08-25] MEDS ORDERED: KETOROLAC 30 MG/ML VIAL IVP ONE (00:15)
--- NOTE | 2021-08-25 00:17 | ED Abdominal Pain ---
General Chief Complaint: Abdominal/GI Problems Stated Complaint: SHARP R LOWER ABD PAIN Nursing Triage Note: PT AMBULATORY TO ROOM 06. PT STATES SHE BEGAN HAVING RLQ SHARP PAIN AT 1700 ON 08/24/21. PT STATES SHE TOOK A PAIN MEDICINE, BUT IS UNSURE WHAT IT WAS. PT STATES IT DID NOT RELIEVE HER PAIN. PT RATING PAIN 8/10 ON ARRIVAL Source of Information: Patient Exam Limitations: No Limitations History of Present Illness Date Seen by Provider: Aug 25, 2021 Time Seen by Provider: 00:04 Initial Comments Patient to the ER by private conveyance with her brother and chief complaint that about 5:00 last night, 7 hours prior to arrival she was having progressively mounting, intermittent first and now consistent for the past several hour, 8 out of 10 right lower quadrant abdominal pain. It is sharp. She has no history of kidney stones or ovarian cysts. She has had her gallbladder out but no other abdominal surgeries. Her brother and father both had appendicitis. She says the car ride over was brutal. She has had a normal, formed, constipated stool earlier today. She is not having diarrhea or vomiting but she is having nausea with retching. She does not have regular periods only occasional spotting since having a Mirena placed over a year ago. She had her gallbladder out 1 to 2 years ago. Allergies and Home Medications Allergies Coded Allergies: No Known Drug Allergies (Unverified , 11/17/08) Patient Home Medication List Home Medication List Reviewed: Yes Cefdinir (Cefdinir) 300 Mg Capsule, 300 MG PO BID Prescribed by: GENI HO on 05/15/20 003 Cephalexin (Keflex) 500 Mg Capsule, 500 MG PO TID Prescribed by: DEVYN CEE on 05/09/20 2344 Cephalexin (Cephalexin) 500 Mg Tablet, 500 MG PO BID Prescribed by: EDITA HUNT on 08/25/21 0208 Ferrous Sulfate (Ferrous Sulfate) 325 Mg Tablet, 325 MG PO DAILY@0700 Prescribed by: LEON GOULD on 04/21/20 0901 Hydrocodone/Acetaminophen (Hydrocodone-Acetamin 5-325 mg) 1 Each Tablet, 1 EACH PO Q4-6 HOURS PRN for PAIN Prescribed by: GENI HO on 05/15/20 0030 Hydrocodone/Acetaminophen (Hydrocodone-Acetamin 5-325 mg) 1 Each Tablet, 1 TAB PO Q4H PRN for PAIN-MODERATE (5-7) Prescribed by: EDITA HUNT on 08/25/21 0209 Hyoscyamine Sulfate (Levsin-Sl) 0.125 Mg Tab.subl, 0.25 MG SL Q4H Prescribed by: GENI HO on 05/15/20 003 Ibuprofen (Ibu) 600 Mg Tablet, 600 MG PO Q6HR PRN for PAIN-MODERATE (5-7) Prescribed by: LEON GOULD on 04/21/20 0901 Naproxen (Naprosyn) 500 Mg Tablet, 500 MG PO BID Prescribed by: EDITA HUNT on 08/26/21214 Nitrofurantoin Monohyd/M-Cryst (Macrobid 100 mg Capsule) 100 Mg Capsule, 1 TAB PO BID Prescribed by: GENI HO on 05/28/202327 Ondansetron (Ondansetron Odt) 4 Mg Tab.rapdis, 4 MG PO Q6H PRN for NAUSEA/VOMITING Prescribed by: EDITA HUNT on 05/17/20 1104 Ondansetron (Ondansetron Odt) 4 Mg Tab.rapdis, 4 MG PO Q6H PRN for NAUSEA/VOMITING Prescribed by: EDITA HUNT on 08/25/21207 Ondansetron (Ondansetron Odt) 4 Mg Tab.rapdis, 4-8 MG PO Q6H PRN for NAUSEA/VOMITING Prescribed by: EDITA HUNT on 08/26/21214 Oxycodone HCl/Acetaminophen (Oxycodone-Acetaminophen 5-325) 1 Each Tablet, 1 EACH PO Q4H PRN for PAIN-MODERATE Prescribed by: EDITA HUNT on 05/17/20 110 Oxycodone HCl/Acetaminophen (Oxycodone-Acetaminophen 10-325) 1 Each Tablet, 1 EACH PO Q6H PRN for PAIN-MODERATE Prescribed by: EDITA HUNT on 08/26/21214 Pantoprazole Sodium (Protonix) 40 Mg Tablet.dr, 40 MG PO DAILY Prescribed by: GENI HO on 05/15/20 003 Vit/Iron Fumarate/FA ( Tablet) 1 Each Tablet, 1 EACH PO DAILY, (Reported) Entered as Reported by: JASON LARKIN on 04/18/20 1737 Promethazine HCl (Promethazine Tablet) 25 Mg Tablet, 25 MG PO Q6H PRN for NAUSEA/VOMITING-2ND LINE Prescribed by: EDITA HUNT on 08/26/21 0215 Tamsulosin HCl (Flomax) 0.4 Mg Cap, 0.4 MG PO DAILY Prescribed by: EDITA HUNT on 08/25/21 0208 Review of Systems Review of Systems Constitutional: No chills, No diaphoresis, No fever, No malaise EENTM: No Blurred Vision, No Double Vision Respiratory: Denies Cough, Denies Shortness of Air Cardiovascular: Denies Chest Pain, Denies Lightheadedness Gastrointestinal: See HPI, Abdominal Pain, Constipated; Denies Diarrhea; Nausea; Denies Vomiting Genitourinary: Denies Burning, Denies Discharge Musculoskeletal: No back pain, No joint pain All Other Systems Reviewed Negative Unless Noted: Yes Past Sxteqmm-Odwfpf-Ajzzgo Hx Patient Social History Tobacco Use?: No Use of E-Cig and/or Vaping dev: No Substance use?: No Immunizations Up To Date Tetanus Booster (TDap): Less than 5yrs PED Vaccines UTD: Yes Seasonal Allergies Seasonal Allergies: No Past Medical History Surgeries: Yes Tonsillectomy Respiratory: Yes Asthma Cardiac: No Neurological: No Reproductive Disorders: No Female Reproductive Disorders: Denies Sexually Transmitted Disease: Yes (CHLAMYDIA IN AUGUST- TREATED) HIV/AIDS: No Genitourinary: No Gastrointestinal: Yes Ulcer Musculoskeletal: No Endocrine: No HEENT: No Cancer: No Psychosocial: No Integumentary: No Blood Disorders: No Adverse Reaction/Blood Tranf: No Family Medical History FH: hyperlipidemia (MOTHER) FHx: asthma (SIBLING) Cancer, Diabetes, Hypertension, Other Conditions/Hx Physical Exam Vital Signs Vital Signs - First Documented 08/24/21 23:54 Temp 36.4 Pulse 80 Resp 20 B/P (MAP) 129/79 (96) Pulse Ox 99 Capillary Refill : Height/Weight/BMI Height: 5'3.00" Weight: 180lbs. oz. 81.181821bn; 33.00 BMI Method:Stated General Appearance: WD/WN, mild distress HEENT: PERRL/EOMI, pharynx normal Neck: full range of motion, supple, normal inspection Respiratory: lungs clear, normal breath sounds, no respiratory distress, no accessory muscle use Cardiovascular: normal peripheral pulses, regular rate, rhythm Peripheral Pulses: 2+ Radial Pulses (R), 2+ Radial Pulses (L) Gastrointestinal: normal bowel sounds, soft, guarding, rebound, tenderness (Right lower quadrant tenderness as well as epigastric tenderness. No Rovsing sign but there is rebound tenderness over McBurney's point), other (No heeltap sensitivity but positive psoas sign on the right side) Extremities: normal range of motion, normal capillary refill Neurologic/Psychiatric: alert, normal mood/affect, oriented x 3 Skin: normal color, warm/dry Progress/Results/Core Measures Results/Orders Lab Results Laboratory Tests Test 08/24/21 23:57 08/25/21 00:00 Range/Units White Blood Count 11.9 H 4.3-11.0 10^3/uL Red Blood Count 4.42 3.80-5.11 10^6/uL Hemoglobin 14.1 11.5-16.0 g/dL Hematocrit 41 35-52 % Mean Corpuscular Volume 93 80-99 fL Mean Corpuscular Hemoglobin 32 25-34 pg Mean Corpuscular Hemoglobin Concent 35 32-36 g/dL Red Cell Distribution Width 11.9 10.0-14.5 % Platelet Count 312 130-400 10^3/uL Mean Platelet Volume 10.1 9.0-12.2 fL Immature Granulocyte % (Auto) 0 % Neutrophils (%) (Auto) 69 42-75 % Lymphocytes (%) (Auto) 24 12-44 % Monocytes (%) (Auto) 6 0-12 % Eosinophils (%) (Auto) 1 0-10 % Basophils (%) (Auto) 0 0-10 % Neutrophils # (Auto) 8.2 H 1.8-7.8 10^3/uL Lymphocytes # (Auto) 2.8 1.0-4.0 10^3/uL Monocytes # (Auto) 0.7 0.0-1.0 10^3/uL Eosinophils # (Auto) 0.1 0.0-0.3 10^3/uL Basophils # (Auto) 0.1 0.0-0.1 10^3/uL Immature Granulocyte # (Auto) 0.1 0.0-0.1 10^3/uL Sodium Level 139 135-145 MMOL/L Potassium Level 3.7 3.6-5.0 MMOL/L Chloride Level 107 98-107 MMOL/L Carbon Dioxide Level 23 21-32 MMOL/L Anion Gap 9 5-14 MMOL/L Blood Urea Nitrogen 11 7-18 MG/DL Creatinine 0.62 0.60-1.30 MG/DL Estimat Glomerular Filtration Rate 130 BUN/Creatinine Ratio 18 Glucose Level 117 H 70-105 MG/DL Calcium Level 9.7 8.5-10.1 MG/DL Corrected Calcium 8.5-10.1 MG/DL Total Bilirubin 0.4 0.1-1.0 MG/DL Aspartate Amino Transf (AST/SGOT) 17 5-34 U/L Alanine Aminotransferase (ALT/SGPT) 25 0-55 U/L Alkaline Phosphatase 107 40-136 U/L C-Reactive Protein High Sensitivity 0.14 0.00-0.50 MG/DL Total Protein 7.7 6.4-8.2 GM/DL Albumin 4.7 H 3.2-4.5 GM/DL Lipase 26 8-78 U/L Urine Color YELLOW Urine Clarity CLEAR Urine pH 6.5 5-9 Urine Specific [place] >=1.030 1.016-1.022 Urine Protein NEGATIVE NEGATIVE Urine Glucose (UA) NEGATIVE NEGATIVE Urine Ketones NEGATIVE NEGATIVE Urine Nitrite NEGATIVE NEGATIVE Urine Bilirubin NEGATIVE NEGATIVE Urine Urobilinogen 0.2 < = 1.0 MG/DL Urine Leukocyte Esterase 2+ H NEGATIVE Urine RBC (Auto) 2+ H NEGATIVE Urine RBC 10-25 H /HPF Urine WBC 25-50 H /HPF Urine Squamous Epithelial Cells 2-5 /HPF Urine Crystals NONE /LPF Urine Bacteria MODERATE H /HPF Urine Casts NONE /LPF Urine Mucus NEGATIVE /LPF Urine Culture Indicated YES My Orders Orders - EDITA HUNT Ua Culture If Indicated (08/24/21 23:53) Urine Bedside (08/24/21 23:53) Lactated Ringers (Lr 1000 Ml Iv Solution (08/25/21 00:06) Cbc With Automated Diff (08/25/21 00:14) Comprehensive Metabolic Panel (08/25/21 00:14) Hs C Reactive Protein (08/25/21 00:14) Lipase (08/25/21 00:14) Ct Abd/Pelv W (Appendicitis) (08/25/21 00:14) Ed Iv/Invasive Line Start (08/25/21 00:14) Lactated Ringers (Lr 1000 Ml Iv Solution (08/25/21 00:15) Ketorolac Injection (Toradol Injection) (08/25/21 00:15) Ondansetron Injection (Zofran Injectio (08/25/21 00:30) Urine Culture (08/25/21 00:00) Iohexol Injection (Omnipaque 350 Mg/Ml 1 (08/25/21 01:00) Sodium Chloride Flush (Catheter Flush Sy (08/25/21 01:00) Ns (Ivpb) (Sodium Chloride 0.9% Ivpb Bag (08/25/21 01:00) Ceftriaxone 1 Gm Pre-Mix (Rocephin 1 Gm (08/25/21 02:15) Rx-Hydrocodone/Apap 5-325 Mg (Rx-Vicodin (08/25/21 02:15) Rx-Ondansetron Po (Rx-Zofran Po) (08/25/21 02:10) Medications Given in ED Vital Signs/I&O 08/24/21 08/25/21 23:54 02:30 Temp 36.4 Pulse 80 67 Resp 20 16 B/P (MAP) 129/79 (96) 114/73 Pulse Ox 99 99 Blood Pressure Mean: 96 Progress Progress Note : Time: 00:20 Progress Note Suspect appendicitis versus ovarian cyst versus constipation versus colitis versus other? Plan to get a CT without contrast give her a liter of fluids and some Toradol for pain. Zofran for nausea. Check some labs. Diagnostic Imaging Diagonstic Imaging: CT Plain Films/CT/US/NM/MRI: abdomen, pelvis Comments Moderate right hydroureteronephrosis from punctate calculus at the UV junction. [facility] [place] [place] NAME: APRIL GORDON MED REC#: [id number] PT STATUS: DEP ER : 2000 PHYSICIAN: EDITA HUNT MD ADMIT DATE: 08/24/21/ER Signed Date of Exam:08/25/21 CT ABD/PELV W (APPENDICITIS) EXAMINATION: CT abdomen and pelvis with intravenous contrast. TECHNIQUE: Multiple contiguous axial images were obtained through the abdomen and pelvis after the uneventful administration of intravenous contrast. All CT scans use one or more of the following dose optimizing techniques: automated exposure control, MA and/or KvP adjustment based on patient size and exam type or iterative reconstruction. HISTORY: Right lower quadrant pain COMPARISON: 05/14/2020 FINDINGS: Limited views of the lower thorax are unremarkable. The liver is normal without focal lesion. There is no biliary ductal dilation. Gallbladder is surgically absent. Pancreas is normal. Spleen is normal. Adrenal glands are normal. There is moderate right-sided hydroureteronephrosis secondary to a 2 mm stone at the right ureterovesical junction. No left-sided hydronephrosis. There is a delayed right-sided nephrogram. Urinary bladder is normal. Bowel is normal in caliber without obstruction or inflammation. The appendix is normal. No free fluid or air. No abdominal or pelvic lymphadenopathy. Aorta is normal in caliber without aneurysm. There are no suspicious osseus lesions. IMPRESSION: 1. Moderate right-sided hydroureteronephrosis due to a 2 mm stone at the right ureterovesical junction. There is no significant disagreement with the preliminary report. Dictated by: Dictated on workstation # [id number] Dict: 08/25/21 0606 Trans: 08/25/21 0942 LOUISE [id number] Interpreted by: SARAH GALLO MD Electronically signed by: SARAH GALLO MD 08/25/21 0942 Reviewed: Reviewed Night [facility] Study, Reviewed by Me Departure Impression Primary Impression: Ureteral calculus, right Additional Impression: Urinary tract infection Qualified Codes: N39.0 - Urinary tract infection, site not specified; R31.9 - Hematuria, unspecified Disposition: 01 HOME, SELF-CARE Condition: Stable Departure-Patient Inst. Decision time for Depature: 02:04 Referrals: [facility] (PCP/Family) Primary Care Physician RAVI DENIS MD Patient Instructions: How to Strain Your Urine, Kidney Stones (DC) Add. Discharge Instructions: Your stone should pass easily on its own. Flomax 1 capsule every day until the stone passes. Strain your urine to see if you can catch the stone so you will know when it passes. You may present the stone to your urologist for testing if you choose. Drink lots of fluids. Tylenol 1000 mg every 8 hours as necessary for pain. Ibuprofen 800 mg every 8 hours as necessary for pain. Hydrocodone 1 tablet every 6 hours as necessary for severe breakthrough pain. Heating pads can also be helpful for pain. Zofran 1 tablet every 6 hours as necessary for nausea and/or vomiting. Cephalexin 1 capsule twice a day with food for a week to treat underlying urinary tract infection. Return to the ER for intractable pain, nausea, fever above 102.5 or other w orrisome symptoms. You may follow-up with Dr. Denis, urology as needed for management of symptoms especially if the stone does not pass by Thursday. All discharge instructions reviewed with patient and/or family. Voiced understanding. Scripts Hydrocodone/Acetaminophen (Hydrocodone-Acetamin 5-325 mg) 1 Each Tablet 1 TAB PO Q4H PRN for PAIN-MODERATE (5-7), #15 TAB 0 Refills Prov: EDITA HUNT 08/25/21 Ondansetron (Ondansetron Odt) 4 Mg Tab.rapdis 4 MG PO Q6H PRN for NAUSEA/VOMITING, #8 TAB 0 Refills Prov: EDITA HUNT 08/25/21 Cephalexin (Cephalexin) 500 Mg Tablet 500 MG PO BID for 7 Days, #14 TAB 0 Refills Prov: EDITA HUNT 08/25/21 Tamsulosin HCl (Flomax) 0.4 Mg Cap 0.4 MG PO DAILY, #7 CAP 0 Refills Prov: EDITA HUNT 08/25/21 Work/School Note: Work Release Form Date Seen in the Emergency Department: Aug 25, 2021 Return to Work: Aug 27, 2021 Restrictions: No Restrictions Copy Copies To 1: RAVI DENIS MD, TITUS J Aug 25, 2021 00:17
[2021-08-25 00:18] LABS: BACTERIA,URINE MODERATE /HPF; WBC,URINE 25-50 /HPF
[2021-08-25 00:20] LABS: BASOPHILS # (AUTO) 0.1 10^3/uL (0.0-0.1); BASOPHILS % (AUTO) 0 % (0-10); EOSINOPHILS # (AUTO) 0.1 10^3/uL (0.0-0.3); EOSINOPHILS % (AUTO) 1 % (0-10); HEMATOCRIT 41 % (35-52); HEMOGLOBIN 14.1 g/dL (11.5-16.0); LYMPHOCYTES # (AUTO) 2.8 10^3/uL (1.0-4.0); LYMPHOCYTES % (AUTO) 24 % (12-44); MEAN CORPUSCULAR HEMOGLOBIN 32 pg (25-34); MEAN CORPUSCULAR HGB CONC 35 g/dL (32-36); MEAN CORPUSCULAR VOLUME 93 fL (80-99); MEAN PLATELET VOLUME 10.1 fL (9.0-12.2); MONOCYTES # (AUTO) 0.7 10^3/uL (0.0-1.0); MONOCYTES % (AUTO) 6 % (0-12); NEUTROPHILS # (AUTO) 8.2 10^3/uL (1.8-7.8); NEUTROPHILS % (AUTO) 69 % (42-75); PLATELET COUNT 312 10^3/uL (130-400); WHITE BLOOD COUNT 11.9 10^3/uL (4.3-11.0)
[2021-08-25 00:25] LABS: ALBUMIN 4.7 GM/DL (3.2-4.5); CHLORIDE 107 MMOL/L (98-107); POTASSIUM 3.7 MMOL/L (3.6-5.0); SODIUM 139 MMOL/L (135-145)
[2021-08-25 00:27] LABS: CALCIUM 9.7 MG/DL (8.5-10.1)
[2021-08-25 00:28] LABS: GLUCOSE 117 MG/DL (70-105); TOTAL PROTEIN 7.7 GM/DL (6.4-8.2)
[2021-08-25 00:29] LABS: CARBON DIOXIDE 23 MMOL/L (21-32)
[2021-08-25 00:30] LABS: BILIRUBIN,TOTAL 0.4 MG/DL (0.1-1.0)
[2021-08-25] MEDS ORDERED: ONDANSETRON 4 MG/2 ML (SDV) Z0FRAN IVP ONE (00:30)
[2021-08-25 00:31] LABS: ALKALINE PHOSPHATASE 107 U/L (40-136)
[2021-08-25 00:32] LABS: CREATININE SERUM 0.62 MG/DL (0.60-1.30); GFR ESTIMATED 130
[2021-08-25 00:33] LABS: BUN/CREATININE RATIO 18
[2021-08-25 00:35] LABS: ALANINE AMINOTRANSFERASE 25 U/L (0-55); LIPASE 26 U/L (8-78)
[2021-08-25] MEDS ORDERED: CATHETER FLUSH 10 ML SYR IV PRN (01:00)
[2021-08-25] MEDS ORDERED: IOHEXOL 350 MG/ML 100 ML (OMNIPAQUE 350) VIAL IV ONE (01:00)
[2021-08-25] MEDS ORDERED: NS 100 ML (IVPB) BAG IV ONE (01:00)
[2021-08-25] MEDS ORDERED: CEPH500T PO (02:08)
[2021-08-25] MEDS ORDERED: ONDA4TAB11 PO (02:08)
[2021-08-25] MEDS ORDERED: ACHD5005 PO (02:08)
[2021-08-25] MEDS ORDERED: TMSL.4C PO (02:08)
[2021-08-25] MEDS ORDERED: RX-ONDANSETRON 4 MG ODT (ZOFRAN) PPK #4 PO STA (02:10)
[2021-08-25] MEDS ORDERED: cefTRIAXone 1 GM PRE-MIX 50 ML IV ONE (02:15)
[2021-08-25 02:30] VITALS: BP 114/73
--- NOTE | 2021-08-25 06:14 | Diagnostic Imaging Report ---
EXAMINATION: CT abdomen and pelvis with intravenous contrast. TECHNIQUE: Multiple contiguous axial images were obtained through the abdomen and pelvis after the uneventful administration of intravenous contrast. All CT scans use one or more of the following dose optimizing techniques: automated exposure control, MA and/or KvP adjustment based on patient size and exam type or iterative reconstruction. HISTORY: Right lower quadrant pain COMPARISON: 05/14/2020 FINDINGS: Limited views of the lower thorax are unremarkable. The liver is normal without focal lesion. There is no biliary ductal dilation. Gallbladder is surgically absent. Pancreas is normal. Spleen is normal. Adrenal glands are normal. There is moderate right-sided hydroureteronephrosis secondary to a 2 mm stone at the right ureterovesical junction. No left-sided hydronephrosis. There is a delayed right-sided nephrogram. Urinary bladder is normal. Bowel is normal in caliber without obstruction or inflammation. The appendix is normal. No free fluid or air. No abdominal or pelvic lymphadenopathy. Aorta is normal in caliber without aneurysm. There are no suspicious osseus lesions. IMPRESSION: 1. Moderate right-sided hydroureteronephrosis due to a 2 mm stone at the right ureterovesical junction. There is no significant disagreement with the preliminary report. Dictated by: Dictated on workstation # [id number]
[2021-08-26] MEDS ORDERED: PROM25TA14 PO (02:15)
[2021-08-26] MEDS ORDERED: ONDA4TAB11 PO (02:15)
[2021-08-26] MEDS ORDERED: NAPR-1071 PO (02:15)
[2021-08-26] MEDS ORDERED: OXYC-556 PO (02:15)
== END 2021-08-25 02:34 | disposition home or self-care (01) ==
LOC: EDUNIT# 23:48 → ER 23:50
DX: N13.2 Hydronephrosis with renal and ureteral calculous obstruction (principal); Z90.49 Acquired absence of other specified parts of digestive tract
CPT/HCPCS: 36415; 74177; 80053; 81000; 83690; 84703; 85025; 86141; 87088

== ENCOUNTER 2021-08-25 22:24 | Emergency (ER) | payer MEDICAID ==
[~2021-08-25] VITALS: Ht 160 cm; Wt 85.7 kg
[~2021-08-25 22:24] MED LIST changes: +CEPH500T PO; +TMSL.4C PO
[2021-08-26] MEDS ORDERED: KETOROLAC 30 MG/ML VIAL IVP ONE (00:30)
[2021-08-26] MEDS ORDERED: NS IV 1000 ML 1,000 ML IV SCH (00:30)
[2021-08-26 00:59] LABS: BILIRUBIN,URINE NEGATIVE (NEGATIVE); CLARITY,URINE CLEAR; COLOR,URINE YELLOW; GLUCOSE, URINE (UA) NEGATIVE (NEGATIVE); KETONES,URINE NEGATIVE (NEGATIVE); LEUKOCYTE ESTERASE ,URINE TRACE (NEGATIVE); NITRITE,URINE NEGATIVE (NEGATIVE); PROTEIN,URINE NEGATIVE (NEGATIVE)
[2021-08-26] MEDS ORDERED: LACTATED RINGERS 1,000 ML IV STA (01:11)
[2021-08-26 01:12] LABS: BACTERIA,URINE FEW /HPF
[2021-08-26 01:32] LABS: BASOPHILS % (AUTO) 0 % (0-10); EOSINOPHILS % (AUTO) 0 % (0-10); HEMATOCRIT 38 % (35-52); HEMOGLOBIN 13.2 g/dL (11.5-16.0); LYMPHOCYTES # (AUTO) 1.2 10^3/uL (1.0-4.0); LYMPHOCYTES % (AUTO) 9 % (12-44); MEAN CORPUSCULAR HEMOGLOBIN 32 pg (25-34); MEAN CORPUSCULAR HGB CONC 35 g/dL (32-36); MEAN CORPUSCULAR VOLUME 92 fL (80-99); MONOCYTES # (AUTO) 0.9 10^3/uL (0.0-1.0); MONOCYTES % (AUTO) 6 % (0-12); NEUTROPHILS # (AUTO) 11.9 10^3/uL (1.8-7.8); NEUTROPHILS % (AUTO) 85 % (42-75); PLATELET COUNT 256 10^3/uL (130-400)
[2021-08-26] MEDS ORDERED: ONDANSETRON 4 MG/2 ML (SDV) Z0FRAN ONE (01:33)
[2021-08-26] MEDS ORDERED: ONDANSETRON 4 MG/2 ML (SDV) Z0FRAN IVP ONE (01:45)
[2021-08-26 01:47] LABS: CALCIUM 8.9 MG/DL (8.5-10.1); CREATININE SERUM 0.93 MG/DL (0.60-1.30); POTASSIUM 3.7 MMOL/L (3.6-5.0)
[2021-08-26] MEDS ORDERED: NAPR-1071 PO (02:15)
[2021-08-26] MEDS ORDERED: ONDA4TAB11 PO (02:15)
[2021-08-26] MEDS ORDERED: PROMETHAZINE INJ 25 MG/ML (PHENERGAN) AMP IVP ONE (02:15)
[2021-08-26] MEDS ORDERED: diphenhydrAMINE 50 MG/ML INJ (BENADRYL) IVP ONE (02:15)
[2021-08-26] MEDS ORDERED: OXYC-556 PO (02:15)
[2021-08-26] MEDS ORDERED: PROM25TA14 PO (02:15)
--- NOTE | 2021-08-26 02:15 | ED Abdominal Pain ---
General Chief Complaint: Abdominal/GI Problems Stated Complaint: GROIN PAIN;CANNOT URINATE;VOMITING;R LEG NUMBNESS Nursing Triage Note: Pt ambulates to ED 4 with c/o right sided abdominal pain. Was seen in ED yesterday and diagnosed with a kidney stone. Pt reports that she took medication as prescribed with no relief. Pt states she has not been able to urinate since yesterday and the pain is spreading all over abdomen and is making right leg numb. Rates pain 10/10. Source of Information: Patient Exam Limitations: No Limitations History of Present Illness Date Seen by Provider: Aug 26, 2021 Time Seen by Provider: 01:50 Initial Comments Patient to the ER by private conveyance from home with family and chief complaint of intractable pain despite the hydrocodone Flomax antibiotic. The Zofran 4 mg is insufficient. Nursing interceded and we gave her some Toradol and Zofran. Her pain went from a 10 out of 10 down to a 2 out of 10 and she is much more comfortable but still having some nausea without retching. No fevers or chills. No previous history of kidney stones before yesterday. Her pain is all been down in her right flank and right groin. She says sometimes the pain is so great her right leg feels like she has some numbness going down it. She feels a little bloated and has not passed a stool. Allergies and Home Medications Allergies Coded Allergies: No Known Drug Allergies (Unverified , 11/17/08) Patient Home Medication List Home Medication List Reviewed: Yes Cefdinir (Cefdinir) 300 Mg Capsule, 300 MG PO BID Prescribed by: GENI HO on 05/15/20 003 Cephalexin (Keflex) 500 Mg Capsule, 500 MG PO TID Prescribed by: DEVYN CEE on 05/09/20 2344 Cephalexin (Cephalexin) 500 Mg Tablet, 500 MG PO BID Prescribed by: EDITA HUNT on 08/25/21 0208 Ferrous Sulfate (Ferrous Sulfate) 325 Mg Tablet, 325 MG PO DAILY@0700 Prescribed by: LEON GOULD on 04/21/20 0901 Hydrocodone/Acetaminophen (Hydrocodone-Acetamin 5-325 mg) 1 Each Tablet, 1 EACH PO Q4-6 HOURS PRN for PAIN Prescribed by: GENI HO on 05/15/20 0030 Hydrocodone/Acetaminophen (Hydrocodone-Acetamin 5-325 mg) 1 Each Tablet, 1 TAB PO Q4H PRN for PAIN-MODERATE (5-7) Prescribed by: EDITA HUNT on 08/25/21 0209 Hyoscyamine Sulfate (Levsin-Sl) 0.125 Mg Tab.subl, 0.25 MG SL Q4H Prescribed by: GENI HO on 05/15/20 0030 Ibuprofen (Ibu) 600 Mg Tablet, 600 MG PO Q6HR PRN for PAIN-MODERATE (5-7) Prescribed by: LEON GOULD on 04/21/20 0901 Nitrofurantoin Monohyd/M-Cryst (Macrobid 100 mg Capsule) 100 Mg Capsule, 1 TAB PO BID Prescribed by: GENI HO on 05/28/20 2328 Ondansetron (Ondansetron Odt) 4 Mg Tab.rapdis, 4 MG PO Q6H PRN for NAUSEA/VOMITING Prescribed by: EDITA HUNT on 05/17/20 1104 Ondansetron (Ondansetron Odt) 4 Mg Tab.rapdis, 4 MG PO Q6H PRN for NAUSEA/VOMITING Prescribed by: EDITA HUNT on 08/25/21 020 Oxycodone HCl/Acetaminophen (Oxycodone-Acetaminophen 5-325) 1 Each Tablet, 1 EACH PO Q4H PRN for PAIN-MODERATE Prescribed by: EDITA HUNT on 05/17/20 110 Pantoprazole Sodium (Protonix) 40 Mg Tablet.dr, 40 MG PO DAILY Prescribed by: GENI HO on 05/15/2029 Vit/Iron Fumarate/FA ( Tablet) 1 Each Tablet, 1 EACH PO DAILY, (Reported) Entered as Reported by: JASON LARKIN on 04/18/20 1737 Tamsulosin HCl (Flomax) 0.4 Mg Cap, 0.4 MG PO DAILY Prescribed by: EDITA HUNT on 08/25/21207 Review of Systems Review of Systems Constitutional: No chills, No diaphoresis EENTM: No Blurred Vision, No Double Vision Respiratory: Denies Cough, Denies Orthopnea Cardiovascular: Denies Chest Pain, Denies Lightheadedness Gastrointestinal: See HPI, Abdomen Distended, Abdominal Pain; Denies Constipated, Denies Diarrhea Genitourinary: See HPI, Burning; Denies Discharge Musculoskeletal: No back pain, No joint pain All Other Systems Reviewed Negative Unless Noted: Yes Past Wlasznf-Mklxzw-Kccwqk Hx Patient Social History Tobacco Use?: No Smoking Status: Never a Smoker Smokeless Tobacco Frequency: Never a User Use of E-Cig and/or Vaping Iain: Never a User Substance use?: No Alcohol Use?: No Pt feels they are or have been: No Immunizations Up To Date Tetanus Booster (TDap): Less than 5yrs PED Vaccines UTD: Yes Seasonal Allergies Seasonal Allergies: No Past Medical History Surgeries: Yes Tonsillectomy Respiratory: Yes Asthma Cardiac: No Neurological: No Reproductive Disorders: No Female Reproductive Disorders: Denies Sexually Transmitted Disease: Yes (CHLAMYDIA IN AUGUST- TREATED) HIV/AIDS: No Genitourinary: No Gastrointestinal: Yes Ulcer Musculoskeletal: No Endocrine: No HEENT: No Cancer: No Psychosocial: No Integumentary: No Blood Disorders: No Adverse Reaction/Blood Tranf: No Family Medical History FH: hyperlipidemia (MOTHER) FHx: asthma (SIBLING) Cancer, Diabetes, Hypertension, Other Conditions/Hx Physical Exam Vital Signs Vital Signs - First Documented 08/26/21 00:10 Temp 37.3 Pulse 75 Resp 18 B/P (MAP) 133/77 (95) Pulse Ox 99 O2 Delivery Room Air Capillary Refill : Height/Weight/BMI Height: 5'3.00" Weight: 180lbs. oz. 81.545407xx; 33.00 BMI Method:Stated General Appearance: WD/WN, mild distress HEENT: PERRL/EOMI, pharynx normal Neck: full range of motion, normal inspection Respiratory: lungs clear, normal breath sounds, no respiratory distress, no accessory muscle use Cardiovascular: normal peripheral pulses, regular rate, rhythm Peripheral Pulses: 2+ Radial Pulses (R), 2+ Radial Pulses (L) Gastrointestinal: normal bowel sounds, soft, tenderness (Right lower quadrant without Rovsing sign or mesenteric signs) Extremities: non-tender, normal inspection, normal capillary refill Neurologic/Psychiatric: alert, normal mood/affect, oriented x 3 Skin: normal color, warm/dry Progress/Results/Core Measures Results/Orders Lab Results Laboratory Tests Test 08/26/21 00:55 08/26/21 01:20 Range/Units Urine Color YELLOW Urine Clarity CLEAR Urine pH 6.0 5-9 Urine Specific [place] >=1.030 1.016-1.022 Urine Protein NEGATIVE NEGATIVE Urine Glucose (UA) NEGATIVE NEGATIVE Urine Ketones NEGATIVE NEGATIVE Urine Nitrite NEGATIVE NEGATIVE Urine Bilirubin NEGATIVE NEGATIVE Urine Urobilinogen 0.2 < = 1.0 MG/DL Urine Leukocyte Esterase TRACE H NEGATIVE Urine RBC (Auto) NEGATIVE NEGATIVE Urine RBC NONE /HPF Urine WBC 5-10 H /HPF Urine Squamous Epithelial Cells 2-5 /HPF Urine Crystals NONE /LPF Urine Bacteria FEW H /HPF Urine Casts NONE /LPF Urine Mucus SMALL H /LPF Urine Culture Indicated YES White Blood Count 14.0 H 4.3-11.0 10^3/uL Red Blood Count 4.10 3.80-5.11 10^6/uL Hemoglobin 13.2 11.5-16.0 g/dL Hematocrit 38 35-52 % Mean Corpuscular Volume 92 80-99 fL Mean Corpuscular Hemoglobin 32 25-34 pg Mean Corpuscular Hemoglobin Concent 35 32-36 g/dL Red Cell Distribution Width 11.9 10.0-14.5 % Platelet Count 256 130-400 10^3/uL Mean Platelet Volume 10.0 9.0-12.2 fL Immature Granulocyte % (Auto) 0 % Neutrophils (%) (Auto) 85 H 42-75 % Lymphocytes (%) (Auto) 9 L 12-44 % Monocytes (%) (Auto) 6 0-12 % Eosinophils (%) (Auto) 0 0-10 % Basophils (%) (Auto) 0 0-10 % Neutrophils # (Auto) 11.9 H 1.8-7.8 10^3/uL Lymphocytes # (Auto) 1.2 1.0-4.0 10^3/uL Monocytes # (Auto) 0.9 0.0-1.0 10^3/uL Eosinophils # (Auto) 0.0 0.0-0.3 10^3/uL Basophils # (Auto) 0.0 0.0-0.1 10^3/uL Immature Granulocyte # (Auto) 0.1 0.0-0.1 10^3/uL Sodium Level 135 135-145 MMOL/L Potassium Level 3.7 3.6-5.0 MMOL/L Chloride Level 105 98-107 MMOL/L Carbon Dioxide Level 19 L 21-32 MMOL/L Anion Gap 11 5-14 MMOL/L Blood Urea Nitrogen 13 7-18 MG/DL Creatinine 0.93 0.60-1.30 MG/DL Estimat Glomerular Filtration Rate 90 BUN/Creatinine Ratio 14 Glucose Level 118 H 70-105 MG/DL Calcium Level 8.9 8.5-10.1 MG/DL My Orders Orders - EDITA HUNT Ua Culture If Indicated (08/25/21 22:29) Bladder Scan (08/26/21 00:13) Ketorolac Injection (Toradol Injection) (08/26/21 00:30) Ed Iv/Invasive Line Start (08/26/21 00:19) Ns Iv 1000 Ml (Sodium Chloride 0.9%) (08/26/21 00:30) Cbc With Automated Diff (08/26/21 00:19) Basic Metabolic Panel (08/26/21 00:19) Lactated Ringers (Lr 1000 Ml Iv Solution (08/26/21 01:11) Urine Culture (08/26/21 00:55) Ondansetron Injection (Zofran Injectio (08/26/21 01:45) Ondansetron Injection (Zofran Injectio (08/26/21 01:33) Promethazine Injection (Phenergan Injec (08/26/21 02:15) Diphenhydramine Injection (Benadryl Inje (08/26/21 02:15) Medications Given in ED Current Medications Medications Dose Ordered Sig/Graciela Route Start Time Stop Time Status Last Admin Dose Admin Ketorolac Tromethamine 30 mg ONCE ONCE IVP 08/26/21 00:30 08/26/21 00:31 DC 08/26/21 01:25 30 MG Ondansetron HCl 8 mg ONCE ONCE IVP 08/26/21 01:45 08/26/21 01:46 DC 08/26/21 01:34 8 MG Vital Signs/I&O 08/26/21 00:10 Temp 37.3 Pulse 75 Resp 18 B/P (MAP) 133/77 (95) Pulse Ox 99 O2 Delivery Room Air Blood Pressure Mean: 95 Progress Progress Note : Time: 02:11 Progress Note Pain is under control. We will put her on some naproxen 500 twice daily as well as hydrocodone tens. Told her to take 1 or 2 Zofran's and will provide her with some Phenergan's. We will give her some IV Phenergan and Benadryl now. She received a liter of fluids. Labs are as expected. The stone was punctate so I do not suspect it will show up on a KUB. Departure Impression Primary Impression: Ureteral calculus, right Disposition: HOME, SELF-CARE Condition: Stable Departure-Patient Inst. Decision time for Depature: 02:12 Referrals: [facility] [place] Primary Care Physician RAVI DENIS MD Patient Instructions: Kidney Stones (DC) Add. Discharge Instructions: Continue straining your urine as described. Follow-up with Dr. Denis, urology in the morning by phone. Hydrocodone 10 mg every 6 hours as needed for breakthrough pain. Naproxen 500 mg twice a day on a scheduled basis until the pain resolves. Zofran 1 to 2 tablets every 6 hours as needed for nausea or vomiting. Phenergan 1 tablet every 6 hours as needed for persistent nausea. Continue taking the Flomax and antibiotics as prescribed. Return to the ER for intractable pain. All discharge instructions reviewed with patient and/or family. Voiced understanding. Scripts Naproxen (Naprosyn) 500 Mg Tablet 500 MG PO BID, #30 TAB 0 Refills Prov: EDITA HUNT 08/26/21 Promethazine HCl (Promethazine Tablet) 25 Mg Tablet 25 MG PO Q6H PRN for NAUSEA/VOMITING-2ND LINE, #10 TAB 0 Refills Prov: EDITA HUNT 08/26/21 Ondansetron (Ondansetron Odt) 4 Mg Tab.rapdis 4-8 MG PO Q6H PRN for NAUSEA/VOMITING, #15 TAB 0 Refills Prov: EDITA HUNT 08/26/21 Oxycodone HCl/Acetaminophen (Oxycodone-Acetaminophen 10-325) 1 Each Tablet 1 EACH PO Q6H PRN for PAIN-MODERATE MDD 3, #20 TAB 0 Refills Prov: EDITA HUNT 08/26/21 Work/School Note: Work Release Form Date Seen in the Emergency Department: Aug 26, 2021 Return to Work: Aug 28, 2021 Restrictions: No Restrictions Copy Copies To 1: RAVI DENIS MD, TITUS J Aug 26, 2021 02:14
[2021-08-26 03:05] VITALS: BP 125/69
== END 2021-08-26 03:10 | disposition home or self-care (01) ==
LOC: EDUNIT# 22:24 → ER 22:27
DX: N20.1 Calculus of ureter (principal)
CPT/HCPCS: 36415; 80048; 81000; 85025; 87088

== ENCOUNTER 2021-10-13 17:15 | Emergency (ER) | payer MEDICAID ==
[~2021-10-13 17:15] MED LIST changes: +NAPR-1071 PO; +OXYC-556 PO; +PROM25TA14 PO
--- NOTE | 2021-10-13 17:54 | ED Upper Extremity ---
General Chief Complaint: Upper Extremity Stated Complaint: R ARM PAIN Source: patient Exam Limitations: no limitations History of Present Illness Date Seen by Provider: October 13, 2021 Time Seen by Provider: 17:52 Initial Comments Patient is a 20-year-old female who presents ED with right shoulder pain. Pain is located to the anterior posterior right shoulder. This occurred last night after she states she was going up the stairs on the porch she grabbed a handle felt a sharp pain in her right shoulder. She states her right arm was stuck concern for dislocation. Her brother assisted her and manipulated the right shoulder and had immediate relief. Woke up today started having some pain and discomfort which progressed to got worse throughout the day. Denies any swelling or bruising. Pain with any overhead movement. History of dislocation in the past according to patient. Denies distal numbness and tingling, neck pain, nausea, vomiting, diarrhea, chest pain, shortness of breath. She did take Tylenol 2 or 3 hours before arrival. Allergies and Home Medications Allergies Coded Allergies: No Known Drug Allergies (Unverified , 11/17/08) Patient Home Medication List Home Medication List Reviewed: Yes Cefdinir (Cefdinir) 300 Mg Capsule, 300 MG PO BID Prescribed by: GENI HO on 05/15/20 003 Cephalexin (Keflex) 500 Mg Capsule, 500 MG PO TID Prescribed by: DEVYN CEE on 05/09/20 2344 Cephalexin (Cephalexin) 500 Mg Tablet, 500 MG PO BID Prescribed by: EDITA HUNT on 08/25/21 0208 Ferrous Sulfate (Ferrous Sulfate) 325 Mg Tablet, 325 MG PO DAILY@0700 Prescribed by: LEON GOULD on 04/21/20 0901 Hydrocodone/Acetaminophen (Hydrocodone-Acetamin 5-325 mg) 1 Each Tablet, 1 EACH PO Q4-6 HOURS PRN for PAIN Prescribed by: GENI HO on 05/15/20 0030 Hydrocodone/Acetaminophen (Hydrocodone-Acetamin 5-325 mg) 1 Each Tablet, 1 TAB PO Q4H PRN for PAIN-MODERATE (5-7) Prescribed by: EDITA HUNT on 08/25/21 0209 Hyoscyamine Sulfate (Levsin-Sl) 0.125 Mg Tab.subl, 0.25 MG SL Q4H Prescribed by: GENI HO on 05/15/20 003 Ibuprofen (Ibu) 600 Mg Tablet, 600 MG PO Q6HR PRN for PAIN-MODERATE (5-7) Prescribed by: LEON GOULD on 04/21/20 0901 Naproxen (Naprosyn) 500 Mg Tablet, 500 MG PO BID Prescribed by: EDITA HNUT on 08/26/21214 Nitrofurantoin Monohyd/M-Cryst (Macrobid 100 mg Capsule) 100 Mg Capsule, 1 TAB P O BID Prescribed by: GENI HO on 05/28/20 2328 Ondansetron (Ondansetron Odt) 4 Mg Tab.rapdis, 4 MG PO Q6H PRN for NAUSEA/VOMITING Prescribed by: EDITA HUNT on 05/17/20 1104 Ondansetron (Ondansetron Odt) 4 Mg Tab.rapdis, 4 MG PO Q6H PRN for NAUSEA/VOMITING Prescribed by: EDITA HUNT on 08/25/21 0208 Ondansetron (Ondansetron Odt) 4 Mg Tab.rapdis, 4-8 MG PO Q6H PRN for NAUSEA/VOMITING Prescribed by: EDITA HUNT on 08/26/21214 Oxycodone HCl/Acetaminophen (Oxycodone-Acetaminophen 5-325) 1 Each Tablet, 1 EACH PO Q4H PRN for PAIN-MODERATE Prescribed by: EDITA HUNT on 05/17/20 1108 Oxycodone HCl/Acetaminophen (Oxycodone-Acetaminophen 10-325) 1 Each Tablet, 1 EACH PO Q6H PRN for PAIN-MODERATE Prescribed by: EDITA HUNT on 08/26/21214 Pantoprazole Sodium (Protonix) 40 Mg Tablet.dr, 40 MG PO DAILY Prescribed by: GENI HO on 05/15/20 003 Vit/Iron Fumarate/FA ( Tablet) 1 Each Tablet, 1 EACH PO DAILY, (Reported) Entered as Reported by: JASON LARKIN on 04/18/20 1737 Promethazine HCl (Promethazine Tablet) 25 Mg Tablet, 25 MG PO Q6H PRN for NAUSEA/VOMITING-2ND LINE Prescribed by: EDITA HUNT on 08/26/21214 Tamsulosin HCl (Flomax) 0.4 Mg Cap, 0.4 MG PO DAILY Prescribed by: EDITA HUNT on 08/25/21 0208 Review of Systems Constitutional: No chills, No diaphoresis, No fever, No malaise, No weakness EENTM: No blurred vision, No double vision, No dental problems, No hoarseness, No mouth pain, No mouth swelling Respiratory: No cough, No dyspnea on exertion Cardiovascular: No chest pain, No edema Gastrointestinal: No abdominal pain, No diarrhea, No nausea, No vomiting Genitourinary: No decreased output, No discharge Musculoskeletal: No back pain; joint pain, muscle pain, muscle stiffness Skin: No change in color, No change in hair/nails All Other Systems Reviewed Negative Unless Noted: Yes Past Dholznt-Igrhvx-Tpphlc Hx Patient Social History Tobacco Use?: No Use of E-Cig and/or Vaping dev: No Substance use?: No Alcohol Use?: Yes Alcohol type: Wine Alcohol Frequency: Once in a while Pt feels they are or have been: No Immunizations Up To Date Tetanus Booster (TDap): Less than 5yrs PED Vaccines UTD: Yes First/Initial COVID19 Vaccinat: 2020 Second COVID19 Vaccination Neptali: 2020 COVID19 Vaccine Dermatology Procedural Physician: [employer] Seasonal Allergies Seasonal Allergies: No Past Medical History Surgery/Hospitalization HX: TONSILS, SAMIR Surgeries: Yes Tonsillectomy Respiratory: Yes Asthma Cardiac: No Neurological: No Reproductive Disorders: No Female Reproductive Disorders: Denies Sexually Transmitted Disease: Yes (CHLAMYDIA IN AUGUST- TREATED) HIV/AIDS: No Genitourinary: No Gastrointestinal: Yes Ulcer Musculoskeletal: No Endocrine: No HEENT: No Cancer: No Psychosocial: No Integumentary: No Blood Disorders: No Adverse Reaction/Blood Tranf: No Family Medical History FH: hyperlipidemia (MOTHER) FHx: asthma (SIBLING) Cancer, Diabetes, Hypertension, Other Conditions/Hx Physical Exam Vital Signs Vital Signs - First Documented 10/13/21 17:43 Temp 36.1 Pulse 68 Resp 18 B/P (MAP) 113/79 (90) Capillary Refill : Height, Weight, BMI Height: 5'3.00" Weight: 180lbs. oz. 81.723395rc; 33.00 BMI Method:Stated General Appearance: WD/WN, no apparent distress HEENT: PERRL/EOMI, normal ENT inspection, TMs normal, pharynx normal Neck: non-tender, full range of motion, supple Cardiovascular: regular rate, rhythm, no edema, no gallop, no JVD, no murmur Respiratory: chest non-tender, lungs clear, normal breath sounds, no respiratory distress, no accessory muscle use Gastrointestinal: normal bowel sounds, non tender, soft, no organomegaly, no pulsatile mass Back: normal inspection, no CVA tenderness Shoulder: limited ROM (Limited passive range of motion above the right sh oulder. No swelling, erythema or ecchymosis. [employer] strength 5 out of 5), pain (Right anterior posterior shoulder tenderness.) Hand: normal inspection, non-tender, no evidence of injury, normal ROM Neurologic/Psychiatric: double backer II-XII nml as tested, no motor/sensory deficits, alert, normal mood/affect, oriented x 3 Skin: normal color, warm/dry Progress/Results/Core Measures Results/Orders My Orders Orders - ANKIT BALTAZAR Ibuprofen Tablet (Motrin Tablet) (10/13/21 18:00) Shoulder, Right, 3 Views (10/13/21 17:51) Medications Given in ED Current Medications Medications Dose Ordered Sig/Graciela Route Start Time Stop Time Status Last Admin Dose Admin Ibuprofen 600 mg ONCE ONCE PO 10/13/21 18:00 10/13/21 18:01 DC 10/13/21 18:11 600 MG Vital Signs/I&O 10/13/21 17:43 Temp 36.1 Pulse 68 Resp 18 B/P (MAP) 113/79 (90) Departure Communication (PCP) X-ray was negative for fracture. She is having pain with any overhead movement. Patient was placed in a sling. She reports history of dislocation in the past and typically reduces on its own. Her concern for a lax joint. Sling for comfort. Anti-inflammatories at home. Recommend orthopedic follow-up as this has been a reoccurring concern for patient. Would likely benefit for further imaging versus physical therapy to help strengthen the shoulder. Provide orthopedic follow-up. Return precaution were discussed with patient. Impression Primary Impression: Shoulder pain Disposition: 01 HOME, SELF-CARE Condition: Stable Departure-Patient Inst. Decision time for Depature: 18:26 Ref[facility]: [facility] [place] Primary Care Physician JUAN PABLO NEVAREZ MD Patient Instructions: Shoulder Pain ED Add. Discharge Instructions: Avoid any throwing, overhead lifting until seen by orthopedic. Sling for comfort. Anti-inflammatories for pain such as ibuprofen and/or Tylenol All discharge instructions reviewed with patient and/or family. Voiced understanding. Work/School Note: Work Release Form Date Seen in the Emergency Department: October 13, 2021 Return to Work: October 15, 2021 ANKIT BALTAZAR October 13, 2021 17:54
[2021-10-13] MEDS ORDERED: IBUPROFEN 600 MG (MOTRIN) TAB PO ONE (18:00)
--- NOTE | 2021-10-13 18:16 | Diagnostic Imaging Report ---
INDICATION: Right shoulder pain. TECHNIQUE: Three views of the right shoulder CORRELATION STUDY: None FINDINGS: The glenohumeral and acromioclavicular alignment are maintained and unremarkable. There is no evidence for acute fracture or dislocation. The visualized soft tissues are unremarkable. IMPRESSION: 1. Negative for acute bony abnormality about the right shoulder. Dictated by: Dictated on workstation # [id number]
[2021-10-13 18:33] VITALS: BP 114/80
== END 2021-10-13 18:33 | disposition home or self-care (01) ==
LOC: EDUNIT# 17:15 → ER 17:16
DX: M25.511 Pain in right shoulder (principal); Z28.311 Partially vaccinated for COVID-19
CPT/HCPCS: 73030; 99283; A4565

== ENCOUNTER 2022-05-11 18:50 | Emergency (ER) | payer MEDICAID ==
[2022-05-11] MEDS ORDERED: IBUPROFEN TABLET 200 MG TAB PO STA (19:41)
[2022-05-11] MEDS ORDERED: ONDANSETRON 4 MG (ZOFRAN) ORAL DISSOLVE TAB SL STA (19:41)
--- NOTE | 2022-05-11 19:42 | ED Cough/URI ---
General Chief Complaint: COVID19 Suspect/Confirmed Stated Complaint: FEVER/NAUSEA/BODYACHES/HEADACHE Nursing Triage Note: PT ARRIVAL TO ER VIA PRIVATE VEHICLE FROM HOME WITH COMPLAINTS OF BODY ACHES, FEVER, VOMITING, DIARRHEA. FEVER X5 DAYS, BODY ACHES X 3 DAYS, AND VOMITING/DIARRHEA TODAY. PATIENT DENIES OTHER COMPLAINTS. PT IS COVID VACCINATED. PATIENT IS NOT FLU VACCINATED. Source: patient Exam Limitations: no limitations History of Present Illness Date Seen by Provider: May 11, 2022 Time Seen by Provider: 19:33 Initial Comments Here with report of fever and body aches since Thursday evening. She has had a cough for a week. She states for the fever and body aches that she has been t aking Tylenol and ibuprofen but has also been taking cough medicine. Last dose of anything was 2 PM today. States that she is vomiting every time she eats or drinks anything but apparently has been able to keep her medicines down. Reports some diarrhea as well. Her main complaint is the body aches and not feeling well. Timing/Duration: getting worse, other (2 to 3 days) Severity/Quality: mild, moderate, dry cough Modifying Factors: Worse With Coughing Associated Symptoms: cough, fever/chills, muscle aches, nasal congestion, shortness of breath Allergies and Home Medications Allergies Coded Allergies: No Known Drug Allergies (Unverified , 11/17/08) Patient Home Medication List Home Medication List Reviewed: Yes Cefdinir (Cefdinir) 300 Mg Capsule, 300 MG PO BID Prescribed by: GENI HO on 05/15/20 0030 Cephalexin (Keflex) 500 Mg Capsule, 500 MG PO TID Prescribed by: DEVYN CEE on 05/09/20 2344 Cephalexin (Cephalexin) 500 Mg Tablet, 500 MG PO BID Prescribed by: EDITA HUNT on 08/25/21 0208 Ferrous Sulfate (Ferrous Sulfate) 325 Mg Tablet, 325 MG PO DAILY@0700 Prescribed by: LEON GOULD on 04/21/20 0901 Hydrocodone/Acetaminophen (Hydrocodone-Acetamin 5-325 mg) 1 Each Tablet, 1 EACH PO Q4-6 HOURS PRN for PAIN Prescribed by: GENI HO on 05/15/20 0030 Hydrocodone/Acetaminophen (Hydrocodone-Acetamin 5-325 mg) 1 Each Tablet, 1 TAB PO Q4H PRN for PAIN-MODERATE (5-7) Prescribed by: EDITA HUNT on 08/25/21 020 Hyoscyamine Sulfate (Levsin-Sl) 0.125 Mg Tab.subl, 0.25 MG SL Q4H Prescribed by: GENI HO on 05/15/20 003 Ibuprofen (Ibu) 600 Mg Tablet, 600 MG PO Q6HR PRN for PAIN-MODERATE (5-7) Prescribed by: LEON GOULD on 04/21/20 0901 Naproxen (Naprosyn) 500 Mg Tablet, 500 MG PO BID Prescribed by: EDITA HUNT on 08/26/21214 Nitrofurantoin Monohyd/M-Cryst (Macrobid 100 mg Capsule) 100 Mg Capsule, 1 TAB PO BID Prescribed by: GENI HO on 05/28/202327 Ondansetron (Ondansetron Odt) 4 Mg Tab.rapdis, 4 MG PO Q6H PRN for NAUSEA/VOMITING Prescribed by: EDITA HUNT on 05/17/20 1104 Ondansetron (Ondansetron Odt) 4 Mg Tab.rapdis, 4 MG PO Q6H PRN for NAUSEA/V OMITING Prescribed by: EDITA HUNT on 08/25/21207 Ondansetron (Ondansetron Odt) 4 Mg Tab.rapdis, 4-8 MG PO Q6H PRN for NAUSEA/VOMITING Prescribed by: EDITA HUNT on 08/26/21214 Oxycodone HCl/Acetaminophen (Oxycodone-Acetaminophen 5-325) 1 Each Tablet, 1 EACH PO Q4H PRN for PAIN-MODERATE Prescribed by: EDITA HUNT on 05/17/20 1108 Oxycodone HCl/Acetaminophen (Oxycodone-Acetaminophen 10-325) 1 Each Tablet, 1 EACH PO Q6H PRN for PAIN-MODERATE Prescribed by: EDITA HUNT on 08/26/21214 Pantoprazole Sodium (Protonix) 40 Mg Tablet.dr, 40 MG PO DAILY Prescribed by: GENI HO on 05/15/20 003 Vit/Iron Fumarate/FA ( Tablet) 1 Each Tablet, 1 EACH PO DAILY, (Reported) Entered as Reported by: JASON LARKIN on 04/18/20 1737 Promethazine HCl (Promethazine Tablet) 25 Mg Tablet, 25 MG PO Q6H PRN for NAUSEA/VOMITING-2ND LINE Prescribed by: EDITA HUNT on 08/26/21 0215 Tamsulosin HCl (Flomax) 0.4 Mg Cap, 0.4 MG PO DAILY Prescribed by: EDITA HUNT on 08/25/21 0208 Review of Systems Review of Systems Constitutional: see HPI, chills, fever EENTM: nose congestion, throat pain Respiratory: cough; No short of breath Cardiovascular: no symptoms reported Gastrointestinal: diarrhea, nausea, vomiting Genitourinary: no symptoms reported Musculoskeletal: No back pain; muscle pain Psychiatric/Neurological: No Symptoms Reported Past [id number]-Wcvviv Hx Patient Social History Tobacco Use?: No Use of E-Cig and/or Vaping dev: No Substance use?: No Alcohol Use?: Yes Alcohol type: Beer, Hard Liquor, Wine Alcohol Frequency: Once in a while Pt feels they are or have been: No Immunizations Up To Date Tetanus Booster (TDap): Less than 5yrs PED Vaccines UTD: Yes Influenza Vaccine Up-to-Date: No; Not Current First/Initial COVID19 Vaccinat: 2020 Second COVID19 Vaccination Neptali: 2020 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: [employer] Seasonal Allergies Seasonal Allergies: No Past Medical History Surgery/Hospitalization HX: TONSILS, SAMIR Surgeries: Yes Tonsillectomy Respiratory: Yes Asthma Cardiac: No Neurological: No Reproductive Disorders: No Female Reproductive Disorders: Denies Sexually Transmitted Disease: Yes (CHLAMYDIA IN AUGUST- TREATED) HIV/AIDS: No Genitourinary: No Gastrointestinal: Yes Ulcer Musculoskeletal: No Endocrine: No HEENT: No Cancer: No Psychosocial: No Integumentary: No Blood Disorders: No Adverse Reaction/Blood Tranf: No Family Medical History Reviewed Nursing Family Hx FH: hyperlipidemia (MOTHER) FHx: asthma ([place]) Cancer, Diabetes, Hypertension, Other Conditions/Hx Physical Exam Vital Signs - First Documented 05/11/22 19:08 Temp 39.4 Pulse 117 Resp 20 B/P (MAP) 112/65 (81) Pulse Ox 98 O2 Delivery Room Air Capillary Refill : Less Than 3 Seconds Height: 5'3.00" Weight: 180lbs. oz. [id number]; 33.00 BMI Method:Stated General Appearance: WD/WN, no apparent distress HEENT: PERRL/EOMI, pharyngeal erythema, other (Nasal congestion with clear rhinorrhea) Neck: full range of motion, supple Respiratory: lungs clear, normal breath sounds Cardiovascular: no murmur, tachycardia Gastrointestinal: non tender, soft Extremities: non-tender, normal inspection Neurologic/Psychiatric: alert, normal mood/affect Skin: normal color, warm/dry Progress/Results/Core Measures Suspected Sepsis SIRS Temperature: Pulse: 117 Respiratory Rate: 20 Blood Pressure 112 /65 Mean: 81 Results/Orders Lab Results Laboratory Tests Test 05/11/22 19:12 Range/Units Influenza Type A (RT-PCR) Not Detected Not Detecte Influenza Type B (RT-PCR) Not Detected Not Detecte SARS-CoV-2 RNA (RT-PCR) Not Detected Not Detecte My Orders Orders - DOROTHEA LOCKETT MD Influenza A And B By Pcr (05/11/22 19:28) Covid 19 Inhouse Test (05/11/22 19:28) Ibuprofen Tablet (Motrin Tablet) (05/11/22 19:41) Ondansetron Oral Dissolve Tab (Zofran (05/11/22 19:41) Vital Signs/I&O 05/11/22 05/11/22 19:08 19:47 Temp 39.4 39.4 Pulse 117 Resp 20 B/P (MAP) 112/65 (81) Pulse Ox 98 O2 Delivery Room Air Capillary Refill : Less Than 3 Seconds Blood Pressure Mean: 81 Progress Note : Progress Note Seen and evaluated. We will test for COVID and influenza. Ibuprofen 600 mg p.o. and ondansetron 4 mg p.o. ordered. Monitor patient. 2038: Overall doing a little better. Heart rate now down in the 80s. She has tolerated p.o. fluids without difficulty. Influenza and COVID test are negative but I do believe that she has influenza and she has a false negative based on symptoms and prevalence in the community. This was discussed with the patient. Discharged home with return precautions. Patient verbalized understanding of instructions and agreement with plan. Departure Impression Primary Impression: Influenza-like symptoms Disposition: 01 HOME, SELF-CARE Condition: Stable Departure-Patient Inst. Decision time for Depature: 20:40 Referrals: [facility] (PCP/Family) Primary Care Physician Patient Instructions: Flu, Adult (DC) Add. Discharge Instructions: All discharge instructions reviewed with patient and/or family. Voiced understanding. You may take Tylenol/acetaminophen 1000 mg every 6 hours as needed for fever or pain. Do not take Tylenol/acetaminophen if you are taking [id number] cough medicine as they both have acetaminophen in them. You may take 1 or the other every 6 hours but not both at the same time. You may take ibuprofen 600 mg every 8 hours as needed for fever or pain. You may use Afrin nasal spray or the generic, 12 hour relief, 2 sprays to each nostril twice daily for 3 days only and then stop. Do not use more than 3 days. Follow-up with your Dr. in a few days for recheck. Drink plenty of fluids and get plenty of rest. You may eat a light diet if tolerated and advance as tolerated. Return for worse pain, fever, vomiting, weakness, breathing problems or other concerns as needed. Scripts Ondansetron (Ondansetron Odt) 4 Mg Tab.rapdis 4 MG PO Q6H PRN for NAUSEA/VOMITING, #8 TAB 0 Refills Prov: DOROTHEA LOCKETT MD 05/11/22 DOROTHEA LOCKETT MD May 11, 2022 19:42
[2022-05-11] MEDS ORDERED: ONDA4TAB11 PO (20:42)
[2022-05-11 20:47] VITALS: BP 112/68
== END 2022-05-11 20:47 | disposition home or self-care (01) ==
LOC: EDUNIT# 18:50 → ER 18:53
DX: R05.9 Cough, unspecified (principal); R50.9 Fever, unspecified; R52 Pain, unspecified; R09.81 Nasal congestion; Z20.822 Contact with and (suspected) exposure to COVID-19
CPT/HCPCS: 87636; 99283

== ENCOUNTER 2022-05-13 21:15 | Inpatient (IN) | payer MEDICAID ==
[~2022-05-13] VITALS: Ht 158.4 cm; Wt 90.3 kg
[2022-05-13] MEDS ORDERED: LACTATED RINGERS 1,000 ML IV ONE (21:30)
[2022-05-13] MEDS ORDERED: ADENOSINE 6 MG/2 ML (ADENOCARD) VIAL IV ONE (21:30)
[2022-05-13] MEDS ORDERED: ONDANSETRON 4 MG/2 ML (SDV) Z0FRAN IVP ONE (21:30)
--- NOTE | 2022-05-13 21:41 | ED General ---
General Chief Complaint: Respiratory Problems Stated Complaint: FEVER, COUGH, VOMITING, WEAKNESS Source of Information: Patient History of Present Illness Date Seen by Provider: May 13, 2022 Time Seen by Provider: 21:23 Initial Comments PT ARRIVES VIA POV FROM HOME, BROUGHT BACK IN WHEELCHAIR PT IS COMPLETELY HYSTERICAL AND HYPERVENTILATING ON ARRIVAL SHE IS SCREAMING/YELLING STATING SHE CAN'T BREATHE C/O SHORTNESS OF BREATH NO CHEST PAIN PT HAS BEEN SICK SINCE Thursday05/09/22 WITH: -COUGH--FOR OVER A WEEK -FEVER UP TO 103--LAST TIME SHE CHECKED TEMP WAS AT 1400 THIS AFTERNOON AND WAS 103, AND TOOK MOTRIN -NAUSEA/VOMITING. HAS BEEN VOMITING SINCE THURSDAY, STATES SHE HAS VOMITED "20- OR 30 TIMES" TODAY--STATES "I DRINK SOMETHING AND I THROW IT UP". STATES SHE "KEEPS DRINKING AND DRINKING BUT I THROW IT RIGHT BACK UP" PT WANTING WATER ON ARRIVAL. -HEADACHE -BODY ACHES -GENERALIZED MALAISE AND WEAKNESS NO DIZZINESS OR SYNCOPE NO DIARRHEA NO ABDOMINAL PAIN NO VISION CHANGES NO PARESTHESIAS OR MOTOR DEFICITS NO URINARY SYMPTOMS AND VOIDING A NORMAL AMOUNT PT WAS SEEN HERE THURSDAY NIGHT FOR THESE SYMPTOMS. COVID AND FLU TESTING WERE NEGATIVE WAS GIVEN RX FOR NAUSEA MEDICATION --STATES IT IS NOT HELPING STATES ALL OF HER SYMPTOMS ARE GETTING WORSE LMP --SPOTTED 2 DAYS AGO. NO CONTROL. PCP: DR. GOULD AT [facility] Allergies and Home Medications Allergies Coded Allergies: No Known Drug Allergies (Unverified , 11/17/08) Patient Home Medication List Home Medication List Reviewed: Yes Cefdinir (Cefdinir) 300 Mg Capsule, 300 MG PO BID Prescribed by: GENI HO on 05/15/20 0030 Cephalexin (Keflex) 500 Mg Capsule, 500 MG PO TID Prescribed by: DEVYN CEE on 05/09/20 2344 Cephalexin (Cephalexin) 500 Mg Tablet, 500 MG PO BID Prescribed by: EDITA HUNT on 08/25/21 0208 Ferrous Sulfate (Ferrous Sulfate) 325 Mg Tablet, 325 MG PO DAILY@0700 Prescribed by: LEON GOULD on 04/21/20 0901 Hydrocodone/Acetaminophen (Hydrocodone-Acetamin 5-325 mg) 1 Each Tablet, 1 EACH PO Q4-6 HOURS PRN for PAIN Prescribed by: GENI HO on 05/15/20 0030 Hydrocodone/Acetaminophen (Hydrocodone-Acetamin 5-325 mg) 1 Each Tablet, 1 TAB PO Q4H PRN for PAIN-MODERATE (5-7) Prescribed by: EDITA HUNT on 08/25/21 020 Hyoscyamine Sulfate (Levsin-Sl) 0.125 Mg Tab.subl, 0.25 MG SL Q4H Prescribed by: GENI HO on 05/15/20 0030 Ibuprofen (Ibu) 600 Mg Tablet, 600 MG PO Q6HR PRN for PAIN-MODERATE (5-7) Prescribed by: LEON GOULD on 04/21/20 0901 Naproxen (Naprosyn) 500 Mg Tablet, 500 MG PO BID Prescribed by: EDITA HUNT on 08/26/21 021 Nitrofurantoin Monohyd/M-Cryst (Macrobid 100 mg Capsule) 100 Mg Capsule, 1 TAB PO BID Prescribed by: GENI HO on 05/28/208 Ondansetron (Ondansetron Odt) 4 Mg Tab.rapdis, 4 MG PO Q6H PRN for NAUSEA/VOMITING Prescribed by: EDITA HUNT on 05/17/20 110 Ondansetron (Ondansetron Odt) 4 Mg Tab.rapdis, 4 MG PO Q6H PRN for NAUSEA/VOMITING Prescribed by: EDITA HUNT on 08/25/21 020 Ondansetron (Ondansetron Odt) 4 Mg Tab.rapdis, 4-8 MG PO Q6H PRN for NAUSEA/VOMITING Prescribed by: EDITA HUNT on 08/26/21 021 Ondansetron (Ondansetron Odt) 4 Mg Tab.rapdis, 4 MG PO Q6H PRN for NAUSEA/VOMITING Prescribed by: DOROTHEA LOCKETT on 05/11/222041 Oxycodone HCl/Acetaminophen (Oxycodone-Acetaminophen 5-325) 1 Each Tablet, 1 EACH PO Q4H PRN for PAIN-MODERATE Prescribed by: EDITA HUNT on 05/17/20 1108 Oxycodone HCl/Acetaminophen (Oxycodone-Acetaminophen 10-325) 1 Each Tablet, 1 EACH PO Q6H PRN for PAIN-MODERATE Prescribed by: EDITA HUNT on 08/26/21 021 Pantoprazole Sodium (Protonix) 40 Mg Tablet.dr, 40 MG PO DAILY Prescribed by: GENI HO on 05/15/20 0030 Vit/Iron Fumarate/FA ( Tablet) 1 Each Tablet, 1 EACH PO DAILY, (Reported) Entered as Reported by: JASON LARKIN on 04/18/20 1737 Promethazine HCl (Promethazine Tablet) 25 Mg Tablet, 25 MG PO Q6H PRN for NAUSEA/VOMITING-2ND LINE Prescribed by: EDITA HUNT on 08/26/21214 Tamsulosin HCl (Flomax) 0.4 Mg Cap, 0.4 MG PO DAILY Prescribed by: EDITA HUNT on 08/25/21 020 Review of Systems Review of Systems Constitutional: see HPI, fever, malaise, weakness EENTM: no symptoms reported, nose congestion; No throat pain Respiratory: see HPI, cough, short of breath; No wheezing Cardiovascular: no symptoms reported; No chest pain, No edema, No palpitations, No syncope Gastrointestinal: see HPI; No abdominal pain, No diarrhea; loss of appetite, nausea, vomiting Genitourinary: no symptoms reported Musculoskeletal: see HPI (BODY ACHES) Skin: no symptoms reported Psychiatric/Neurological: See HPI, Anxiety, Headache Hematologic/Lymphatic: No Symptoms Reported Immunological/Allergic: no symptoms reported Past Atcmjnc-Eewoql-Vukgza Hx Patient Social History Tobacco Use?: No Smoking Status: Never a Smoker Smokeless Tobacco Frequency: Never a User Use of E-Cig and/or Vaping Iain: Never a User Substance use?: No Alcohol Use?: No Immunizations Up To Date Tetanus Booster (TDap): Less than 5yrs PED Vaccines UTD: Yes First/Initial COVID19 Vaccinat: 2020 Second COVID19 Vaccination Neptali: 2020 Seasonal Allergies Seasonal Allergies: No Past Medical History Surgery/Hospitalization HX: TONSILS, SAMIR Surgeries: Yes (SAMIR 05/26/[address] HDZ) Gallbladder, Tonsillectomy Respiratory: Yes Asthma Cardiac: No Neurological: No : No Hx : 1 Hx Para: 1 Hx Total # of Abortions (Sp): 0 Reproductive Disorders: No Female Reproductive Disorders: Denies Sexually Transmitted Disease: Yes (CHLAMYDIA IN AUGUST- TREATED) HIV/AIDS: No Genitourinary: Yes (RIGHT URETERAL STONE 07/2021-NO INTERVENTION) Kidney Stones Gastrointestinal: Yes Ulcer Musculoskeletal: No Endocrine: No HEENT: No Cancer: No Psychosocial: No Integumentary: No Blood Disorders: No Adverse Reaction/Blood Tranf: No Family Medical History FH: hyperlipidemia (MOTHER) FHx: asthma (SIBLING) Cancer, Diabetes, Hypertension, Other Conditions/Hx Physical Exam Vital Signs Vital Signs - First Documented 05/13/22 21:20 Temp 37.8 Pulse 189 Resp 28 B/P (MAP) 107/89 (95) Pulse Ox 95 O2 Delivery Room Air Capillary Refill : Height, Weight, BMI Height: 5'3.00" Weight: 180lbs. oz. [id number]; 33.00 BMI Method:Stated General Appearance: WD/WN, Anxious, Other (PT COMPLETELY HYSTERICAL, SCREAMING AND HYPERVENTILATING ON ARRIVAL, VERY DRAMATIC. ANXIOUS) HEENT: PERRL/EOMI, TMs Normal, Pharynx Normal, Other (NASAL CONGESTION) Neck: Normal Inspection Respiratory: No Rales, No Rhonci, No Wheezing; Other (HYPERVENTILATING ON ARRIVAL. WHEN SHE IS CALMED, RESPIRATIONS ARE EVEN AND UNLABORED AND LUNGS ARE CLEAR TO AUSCULTATION. ) Cardiovascular: No JVD, No Murmur, Normal Peripheral Pulses, Tachycardia Gastrointestinal: Non Tender, Soft Back: Normal Inspection, No CVA Tenderness Extremity: Normal Capillary Refill, Normal Inspection, Normal Range of Motion, Non Tender, No Calf Tenderness, No Pedal Edema Neurologic/Psychiatric: Alert, Oriented x3, No Motor/Sensory Deficits, director of casework II- XII Norm as Tested Skin: Normal Color (PT IS ), Warm/Dry; No Rash Focused Exam Sepsis Stage: Severe Sepsis Possible Source: Genitouriary (URINARY TRACT AND RESPIRATORY ) Lactate Level 05/13/22 22:00: Lactic Acid Level 1.52 Time of Focused Exam: 23:30 Respiratory: Normal Breath Sounds, No Accessory Muscle Use, No Respiratory Distress Cardiovascular: Regular Rate, Rhythm, No Edema, No JVD, No Murmur Capillary Refill: Less Than 3 Seconds Skin: normal color (NORMAL FOR ETHNICITY) Lactic Acid Level Laboratory Tests Test 05/13/22 22:00 Lactic Acid Level 1.52 MMOL/L (0.50-2.00) Within 3hrs of presentation: Admin fluids, Admin ABX, Blood cultures prior to ABX's, Focus exam, Lactate level Progress/Results/Core Measures Suspected Sepsis SIRS Temperature: Pulse: Respiratory Rate: Laboratory Tests 05/13/22 21:22: White Blood Count 15.4H Blood Pressure / Mean: 05/13/22 22:00: Lactic Acid Level 1.52 Laboratory Tests 05/13/22 21:22: Creatinine 0.82, INR Comment 1.0, Platelet Count 312, Total Bilirubin 1.9H Results/Orders Lab Results Laboratory Tests Test 05/13/22 21:22 05/13/22 21:27 05/13/22 22:00 05/13/22 23:37 Range/Units White Blood Count 15.4 H 4.3-11.0 10^3/uL Red Blood Count 4.17 3.80-5.11 10^6/uL Hemoglobin 13.3 11.5-16.0 g/dL Hematocrit 38 35-52 % Mean Corpuscular Volume 90 80-99 fL Mean Corpuscular Hemoglobin 32 25-34 pg Mean Corpuscular Hemoglobin Concent 36 32-36 g/dL Red Cell Distribution Width 11.7 10.0-14.5 % Platelet Count 312 130-400 10^3/uL Mean Platelet Volume 10.4 9.0-12.2 fL Immature Granulocyte % (Auto) 1 % Neutrophils (%) (Auto) 82 H 42-75 % Lymphocytes (%) (Auto) 12 12-44 % Monocytes (%) (Auto) 5 0-12 % Eosinophils (%) (Auto) 0 0-10 % Basophils (%) (Auto) 0 0-10 % Neutrophils # (Auto) 12.6 H 1.8-7.8 10^3/uL Lymphocytes # (Auto) 1.9 1.0-4.0 10^3/uL Monocytes # (Auto) 0.8 0.0-1.0 10^3/uL Eosinophils # (Auto) 0.0 0.0-0.3 10^3/uL Basophils # (Auto) 0.0 0.0-0.1 10^3/uL Immature Granulocyte # (Auto) 0.1 0.0-0.1 10^3/uL Neutrophils % (Manual) 84 % Lymphocytes % (Manual) 11 % Monocytes % (Manual) 5 % Blood Morphology Comment NORMAL Erythrocyte Sedimentation Rate 69 H 0-20 MM/HR Prothrombin Time 13.8 12.2-14.7 SEC INR Comment 1.0 0.8-1.4 Activated Partial Thromboplast Time 32 24-35 SEC D-Dimer 2.12 H 0.00-0.49 UG/ML Sodium Level 133 L 135-145 MMOL/L Potassium Level 3.3 L 3.6-5.0 MMOL/L Chloride Level 102 98-107 MMOL/L Carbon Dioxide Level 16 L 21-32 MMOL/L Anion Gap 15 H 5-14 MMOL/L Blood Urea Nitrogen 11 7-18 MG/DL Creatinine 0.82 0.60-1.30 MG/DL Estimat Glomerular Filtration Rate 104 BUN/Creatinine Ratio 13 Glucose Level 161 H 70-105 MG/DL Calcium Level 9.5 8.5-10.1 MG/DL Corrected Calcium 9.5 8.5-10.1 MG/DL Magnesium Level 1.6 1.6-2.4 MG/DL Total Bilirubin 1.9 H 0.1-1.0 MG/DL Aspartate Amino Transf (AST/SGOT) 21 5-34 U/L Alanine Aminotransferase (ALT/SGPT) 34 0-55 U/L Alkaline Phosphatase 87 40-136 U/L Myoglobin 29.2 10.0-92.0 NG/ML Troponin I < 0.028 <0.028 NG/ML C-Reactive Protein High Sensitivity 29.40 H 0.00-0.50 MG/DL B-Type Natriuretic Peptide < 10.0 <100.0 PG/ML Total Protein 8.2 6.4-8.2 GM/DL Albumin 4.0 3.2-4.5 GM/DL Amylase Level 26 25-125 U/L Lipase 6 L 8-78 U/L Procalcitonin 0.48 H <0.10 NG/ML Serum Test, Qualitative NEGATIVE NEGATIVE Influenza Type A (RT-PCR) Not Detected Not Detecte Influenza Type B (RT-PCR) Not Detected Not Detecte SARS-CoV-2 RNA (RT-PCR) Not Detected Not Detecte Lactic Acid Level 1.52 0.50-2.00 MMOL/L Urine Color DARK YELLOW Urine Clarity SL CLOUDY Urine pH 6.0 5-9 Urine Specific [place] 1.020 1.016-1.022 Urine Protein 2+ H NEGATIVE Urine Glucose (UA) TRACE H NEGATIVE Urine Ketones TRACE H NEGATIVE Urine Nitrite NEGATIVE NEGATIVE Urine Bilirubin 1+ H NEGATIVE Urine Urobilinogen >=8.0 < = 1.0 MG/DL Urine Leukocyte Esterase 3+ H NEGATIVE Urine RBC (Auto) 2+ H NEGATIVE Urine RBC 2-5 H /HPF Urine WBC >100 H /HPF Urine Squamous Epithelial Cells 0-2 /HPF Urine Crystals NONE /LPF Urine Bacteria MODERATE H /HPF Urine Casts NONE /LPF Urine Mucus NEGATIVE /LPF Urine Culture Indicated CULTURE PENDING Urine Opiates Screen NEGATIVE NEGATIVE Urine Oxycodone Screen NEGATIVE NEGATIVE Urine Methadone Screen NEGATIVE NEGATIVE Urine Propoxyphene Screen NEGATIVE NEGATIVE Urine Barbiturates Screen NEGATIVE NEGATIVE Ur Tricyclic Antidepressants Screen NEGATIVE NEGATIVE Urine Phencyclidine Screen NEGATIVE NEGATIVE Urine Amphetamines Screen NEGATIVE NEGATIVE Urine Methamphetamines Screen NEGATIVE NEGATIVE Urine Benzodiazepines Screen NEGATIVE NEGATIVE Urine Cocaine Screen NEGATIVE NEGATIVE Urine Cannabinoids Screen NEGATIVE NEGATIVE My Orders Orders - GENI HO DO Ekg Tracing (05/13/22 21:23) Monitor-Rhythm Ecg Trace Only (05/13/22 21:23) Adenosine Injection (Adenocard Injection (05/13/22 21:30) Ed Iv/Invasive Line Start (05/13/22 21:27) O2 (05/13/22:27) Amylase (05/13/22:) Bnp Harish (05/13/22:) Cbc With Automated Diff (05/13/22:) Comprehensive Metabolic Panel (05/13/22 21:27) Hs C Reactive Protein (05/13/22 21:) Fibrin Degradation Products (05/13/22:) Drug Screen Stat (Urine) (05/13/22:) Hcg,Qualitative Serum (05/13/22:) Lactic Acid Analyzer (05/13/22:) Lipase (05/13/22:) Magnesium (05/13/22:27) Procalcitonin (Pct) (05/13/22:) Ua Culture If Indicated (05/13/22:) Erythrocyte Sedimentation Rate (05/13/22 21:27) Myoglobin Serum (05/13/22 21:27) Troponin I [place] (05/13/22 21:27) Ed Iv/Invasive Line Start (05/13/22:) Lactated Ringers (Lr 1000 Ml Iv Solution (05/13/22 21:30) Ondansetron Injection (Zofran Injectio (05/13/22 21:) Chest 1 View, Ap/Pa Only (05/13/22:) Covid 19 Inhouse Test (05/13/22:) Blood Culture (05/13/22:) Sputum Culture (05/13/22) Urine Culture (05/13/22) Protime With Inr (05/13/22) Partial Thromboplastin Time (05/13/22:) Ed Iv/Invasive Line Start (05/13/22) Ed Iv/Invasive Line Start (05/13/22) Vital Signs Adult Sepsis Patie Q15M (05/13/22:) O2 (05/13/22:) Remove Rings In Anticipation O (05/13/22:) Influenza A And B By Pcr (05/13/22) Isolation Central Supply Req (05/13/22:) Ekg Tracing (05/13/22:30) Manual Differential (05/13/22:) Ns W/Kcl 20 Meq/L (Ns Iv W/Kcl 20 Meq/L) (05/13/22 23:15) Ct Anaya Chest/Noang Abd-Pelv W (05/13/22 23:10) Ekg Tracing (05/13/22 23:20) Iohexol Injection (Omnipaque 350 Mg/Ml 1 (05/14/22 00:15) Received Contrast (Hold Metformin- Contr (05/14/22 00:15) Ns (Ivpb) (Sodium Chloride 0.9% Ivpb Bag (05/14/22 00:15) Ceftriaxone 1 Gm Pre-Mix (Rocephin 1 Gm (05/14/22 00:15) Azithromycin Injection (Zithromax Inject (05/14/22 00:15) Ed Iv/Invasive Line Start (05/14/22 00:27) Lactated Ringers (Lr 1000 Ml Iv Solution (05/14/22 00:30) Ondansetron Injection (Zofran Injectio (05/14/22 01:15) Ed Iv/Invasive Line Start (05/14/22 02:56) Ns Iv 1000 Ml (Sodium Chloride 0.9%) (05/14/22 03:00) Metoclopramide Injection (Reglan Injecti (05/14/22 03:00) Ketorolac Injection (Toradol Injection) (05/14/22 03:00) Medications Given in ED Current Medications Medications Dose Ordered Sig/Graciela Route Start Time Stop Time Status Last Admin Dose Admin Adenosine 6 mg ONCE ONCE IV 05/13/22 21:30 05/13/22 21:31 DC 05/13/22 21:38 6 MG Azithromycin 500 mg/Sodium Chloride 255 ml @ 250 mls/hr ONCE ONCE IV 05/14/22 00:15 05/14/22 01:16 DC 05/14/22 00:32 250 MLS/HR Ceftriaxone Sodium/Dextrose 50 ml @ 100 mls/hr ONCE ONCE IV 05/14/22 00:15 05/14/22 00:44 DC 05/14/22 00:32 100 MLS/HR Iohexol 100 ml ONCE ONCE IV 05/14/22 00:15 05/14/22 00:21 DE 05/14/22 00:15 71 ML Ketorolac Tromethamine 30 mg ONCE ONCE IVP 05/14/22 03:00 05/14/22 03:01 DC 05/14/22 03:31 30 MG Lactated Ringer's 1,000 ml @ 0 mls/hr Q0M ONCE IV 05/13/22 21:30 05/13/22 21:31 DE 05/13/22 21:39 999 MLS/HR Lactated Ringer's 1,000 ml @ 0 mls/hr Q0M ONCE IV 05/14/22 00:30 05/14/22 00:31 DE 05/14/22 00:32 999 MLS/HR Metoclopramide HCl 10 mg ONCE ONCE IVP 05/14/22 03:00 05/14/22 03:01 DC 05/14/22 03:31 10 MG Ondansetron HCl 4 mg ONCE ONCE IVP 05/14/22 01:15 05/14/22 01:16 DE 05/14/22 01:10 4 MG Ondansetron HCl 8 mg ONCE ONCE IVP 05/13/22 21:30 05/13/22 21:31 DC 05/13/22 21:39 8 MG Sodium Chloride 100 ml ONCE ONCE IV 05/14/22 00:15 05/14/22 00:21 DC 05/14/22 00:16 70 ML Vital Signs/I&O 05/13/22 05/13/22 05/13/22 21:20 21:20 23:29 Temp 37.8 37.7 Pulse 189 Resp 28 B/P (MAP) 107/89 (95) Pulse Ox 95 O2 Delivery Room Air Room Air Capillary Refill : Progress Note : Progress Note PPE WORN COVID AND FLU TESTING DONE SEPSIS PROTOCOL INITIATED HR ON ARRIVAL WAS 189--SVT DOWN TO 160'S AFTER SHE CALMED DOWN--STILL WITH SVT GIVEN 6 MG OF ADENOSINE, WITHOUT ANY CHANGE HEART RATE GRADUALLY CAME DOWN ON IT'S OWN TO THE 80'S-90'S WITH IV FLUIDS, THEN TRENDED BACK UP TO 120'S BP STILL IN THE 90'S TO LOW 100'S. O2 SATS 100% NO COUGH NO HYPOXIA OTHER THAN HYPERVENTILATING ON ARRIVAL, NO FURTHER DYSPNEA DURING ER STAY NO VOMITING DURING ER STAY, BUT CONTINUED TO C/O NAUSEA--GIVEN ZOFRAN AND REGLAN C/O GENERALIZED PAIN--GIVEN TORADOL GIVEN IV FLUIDS, WELL TYLENOL AND MOTRIN FOR FEVER AND GENERALIZED PAIN 0200--PT IS WANTING TO LEAVE. ADVISED THAT NO CT REPORT IS BACK AT THIS TIME. PT AGREES TO WAIT FOR REPORT. REVIEWED ALL TEST RESULTS, AND RECOMMENDATION FOR ADMIT. PT IS AGREEABLE TO THIS PLAN. BP >100 SYSTOLIC, HR IN 110'S, O2 SAT 98%, RR 20 AT TIME OF ADMIT. ECG Initial ECG Impression Date: May 13, 2022 Initial ECG Impression Time: 21:25 Initial ECG Rate: 156 Initial ECG Rhythm: S.Tach Initial ECG Impression: Nonspecific Changes Initial ECG Comparisson: No Previous ECG Available EKG : EKG Time: 21:35 Rate: 133 Rhythm: S.Tach Comment EKG #3 AT 2317--RATE 96, NSR. EKG #4 AT 2332--RATE 91, NSR Diagnostic Imaging Comments CXR--NO ACUTE PROCESS, PENDING RADIOLOGIST REVIEW CT ANGIOGRAM OF CHEST / ABDOMEN-PELVIS--PER [facility] VIA FAX AT 8250 -NO P.E. -NO ACUTE PROCESS IN CHEST -RIGHT PYELONEPHRITIS -NO OTHER ACUTE INTRA-ABDOMINAL ABNORMALITY. Reviewed: Reviewed by Me Departure Communication (Admissions) 254--SPOKE WITH DR. SANTANA, HOSPITALIST FOR [facility] [place]. ACCEPTS PT FOR ADMIT 309--REPORT TO DR. BRIDGES, E-ICU PHYSICIAN. Impression Primary Impression: Severe sepsis Additional Impressions: Nonspecific syndrome suggestive of viral illness Dehydration Anxiety hyperventilation Upper respiratory infection EPISODE OF SVT Pyelonephritis Disposition: ADMITTED INPATIENT Condition: Improved Admissions Decision to Admit Reason: Admit from ER (General) Decision to Admit/Date: May 14, 2022 Time/Decision to Admit Time: 03:00 Departure-Patient Inst. Referrals: [facility] (PCP/Family) Primary Care Physician GENI HO DO May 13, 2022 21:41
[2022-05-13 21:46] LABS: BASOPHILS % (AUTO) 0 % (0-10); EOSINOPHILS % (AUTO) 0 % (0-10); HEMATOCRIT 38 % (35-52); HEMOGLOBIN 13.3 g/dL (11.5-16.0); LYMPHOCYTES # (AUTO) 1.9 10^3/uL (1.0-4.0); LYMPHOCYTES % (AUTO) 12 % (12-44); MEAN CORPUSCULAR HEMOGLOBIN 32 pg (25-34); MEAN CORPUSCULAR HGB CONC 36 g/dL (32-36); MEAN CORPUSCULAR VOLUME 90 fL (80-99); MEAN PLATELET VOLUME 10.4 fL (9.0-12.2); MONOCYTES # (AUTO) 0.8 10^3/uL (0.0-1.0); MONOCYTES % (AUTO) 5 % (0-12); NEUTROPHILS # (AUTO) 12.6 10^3/uL (1.8-7.8); NEUTROPHILS % (AUTO) 82 % (42-75); PLATELET COUNT 312 10^3/uL (130-400); WHITE BLOOD COUNT 15.4 10^3/uL (4.3-11.0)
[2022-05-13 22:04] LABS: ERYTHROCYTE SEDIMENTATION RATE 69 MM/HR (0-20); LYMPHOCYTES % (MANUAL) 11 %; MONOCYTES % (MANUAL) 5 %; NEUTROPHILS % (MANUAL) 84 %; RBC MORPH NORMAL
[2022-05-13 22:10] LABS: ALANINE AMINOTRANSFERASE 34 U/L (0-55); ALKALINE PHOSPHATASE 87 U/L (40-136); AMYLASE 26 U/L (25-125); BILIRUBIN,TOTAL 1.9 MG/DL (0.1-1.0); BUN/CREATININE RATIO 13; CALCIUM 9.5 MG/DL (8.5-10.1); CARBON DIOXIDE 16 MMOL/L (21-32); CHLORIDE 102 MMOL/L (98-107); CREATININE SERUM 0.82 MG/DL (0.60-1.30); GFR ESTIMATED 104; GLUCOSE 161 MG/DL (70-105); LIPASE 6 U/L (8-78); MAGNESIUM 1.6 MG/DL (1.6-2.4); POTASSIUM 3.3 MMOL/L (3.6-5.0); SODIUM 133 MMOL/L (135-145); TOTAL PROTEIN 8.2 GM/DL (6.4-8.2)
[2022-05-13 23:04] LABS: FIBRIN DEGRADATION PRODUCTS 2.12 UG/ML (0.00-0.49); PROTHROMBIN TIME PATIENT 13.8 SEC (12.2-14.7)
[2022-05-13] MEDS: NS W/KCL 20 MEQ/L 1,000 ML IV SCH (23:25)
[2022-05-13 23:45] LABS: CLARITY,URINE SL CLOUDY; COLOR,URINE DARK YELLOW; GLUCOSE, URINE (UA) TRACE (NEGATIVE); KETONES,URINE TRACE (NEGATIVE); LEUKOCYTE ESTERASE ,URINE 3+ (NEGATIVE); NITRITE,URINE NEGATIVE (NEGATIVE); PROTEIN,URINE 2+ (NEGATIVE)
[2022-05-14 00:05] LABS: BACTERIA,URINE MODERATE /HPF; BILIRUBIN,URINE 1+ (NEGATIVE); SQUAMOUS EPITHELIAL CELL,UR 0-2 /HPF; WBC,URINE >100 /HPF
[2022-05-14 00:06] LABS: AMPHETAMINE SCREEN, URINE NEGATIVE (NEGATIVE); BARBITURATE SCREEN URINE NEGATIVE (NEGATIVE); BENZODIAZEPINES SCREEN URINE NEGATIVE (NEGATIVE); CANNABINOID SCREEN, URINE NEGATIVE (NEGATIVE); COCAINE SCREEN URINE NEGATIVE (NEGATIVE); METHADONE STAT NEGATIVE (NEGATIVE); OPIATE SCREEN URINE NEGATIVE (NEGATIVE); OXYCODONE STAT NEGATIVE (NEGATIVE); PROPOXYPHENE STAT NEGATIVE (NEGATIVE); TRICYCLIC ANTIDEPRESSANTS SCRE NEGATIVE (NEGATIVE)
[2022-05-14] MEDS ORDERED: cefTRIAXone 1 GM PRE-MIX 50 ML IV ONE (00:15)
[2022-05-14] MEDS ORDERED: AZITHROMYCIN INJECTION 500 MG in NS (IVPB) 250 ML IV ONE (00:15)
[2022-05-14] MEDS ORDERED: HOLD METFORMIN - RECEIVED CONTRAST 20 ML VIAL IV SCH (00:15)
[2022-05-14] MEDS ORDERED: IOHEXOL 350 MG/ML 100 ML (OMNIPAQUE 350) VIAL IV ONE (00:15)
[2022-05-14] MEDS ORDERED: NS 100 ML (IVPB) BAG IV ONE (00:15)
[2022-05-14] MEDS ORDERED: LACTATED RINGERS 1,000 ML IV ONE (00:30)
[2022-05-14] MEDS ORDERED: ONDANSETRON 4 MG/2 ML (SDV) Z0FRAN IVP ONE (01:15)
[2022-05-14] MEDS ORDERED: METOCLOPRAMIDE INJ 10 MG/2 ML (REGLAN) IVP ONE (03:00)
[2022-05-14] MEDS ORDERED: KETOROLAC 30 MG/ML VIAL IVP ONE (03:00)
[2022-05-14] MEDS ORDERED: NS IV 1000 ML 1,000 ML IV SCH (03:00)
[2022-05-14] MEDS ORDERED: ACETAMINOPHEN 500 MG TAB (TYLENOL) PO ONE (03:30)
[2022-05-14] MEDS ORDERED: EPINEPHrine 1 MG INJECTION 4 MG in NS (IVPB) 248 ML IV SCH (04:45)
[2022-05-14] MEDS ORDERED: METOCLOPRAMIDE INJ 10 MG/2 ML (REGLAN) IV PRN (04:45)
[2022-05-14] MEDS ORDERED: ONDANSETRON 4 MG/2 ML (SDV) Z0FRAN IV PRN (04:45)
[2022-05-14] MEDS ORDERED: NOREPINEPHRINE 8 MG/250 ML 250 ML IV SCH (04:45)
[2022-05-14] MEDS ORDERED: fentaNYL INJ 100 MCG/2 ML AMP IV PRN (04:45)
[2022-05-14] MEDS ORDERED: IBUPROFEN 800 MG (MOTRIN) TAB PO PRN (04:45)
[2022-05-14] MEDS ORDERED: VASOPRESSIN INJECTION 20 UNIT in NS (IVPB) 100 ML IV SCH (04:45)
[2022-05-14] MEDS: LACTATED RINGERS 1,000 ML IV SCH ×2 (04:47→08:50)
[2022-05-14 05:58] LABS: BASOPHILS % (AUTO) 0 % (0-10); EOSINOPHILS % (AUTO) 0 % (0-10); HEMATOCRIT 30 % (35-52); HEMOGLOBIN 10.5 g/dL (11.5-16.0); LYMPHOCYTES % (AUTO) 9 % (12-44); MEAN CORPUSCULAR HEMOGLOBIN 32 pg (25-34); MEAN CORPUSCULAR HGB CONC 35 g/dL (32-36); MEAN CORPUSCULAR VOLUME 92 fL (80-99); MONOCYTES % (AUTO) 9 % (0-12); NEUTROPHILS # (AUTO) 9.5 10^3/uL (1.8-7.8); NEUTROPHILS % (AUTO) 82 % (42-75); PLATELET COUNT 211 10^3/uL (130-400); WHITE BLOOD COUNT 11.5 10^3/uL (4.3-11.0)
[2022-05-14] MEDS ORDERED: NS IV 500 ML 500 ML IV PRN (06:30)
[2022-05-14 06:40] LABS: ALBUMIN 2.9 GM/DL (3.2-4.5); BILIRUBIN,TOTAL 1.4 MG/DL (0.1-1.0); CREATININE SERUM 0.61 MG/DL (0.60-1.30); MAGNESIUM 1.5 MG/DL (1.6-2.4); PHOSPHORUS 2.5 MG/DL (2.3-4.7); POTASSIUM 3.2 MMOL/L (3.6-5.0)
[2022-05-14] MEDS ORDERED: MAGNESIUM 1 GM/100 ML IVPB 200 ML IV ONE (06:47)
[2022-05-14] MEDS ORDERED: POTASSIUM CL 10MEQ/50ML IVPB 200 ML IV ONE (06:47)
[2022-05-14] MEDS ORDERED: LACTATED RINGERS 1,000 ML IV SCH ×2 (07:00→12:45)
[2022-05-14] MEDS ORDERED: FLU QUADRIvalent (6 months+) 60 mcg/0.5 ml 2022-23 (Fluzone) IM ONE (07:00)
[2022-05-14] MEDS: POTASSIUM CL 10MEQ/50ML IVPB 50 ML IV SCH ×3 (07:44→08:50)
[2022-05-14] MEDS: MAGNESIUM 1 GM/100 ML IVPB 100 ML IV SCH ×2 (07:44→07:45)
--- NOTE | 2022-05-14 08:05 | Diagnostic Imaging Report ---
INDICATION: Cough and fever. Comparison is made with prior examination of 08/29/2013. FINDINGS: The heart size, mediastinal configuration, and pulmonary vascularity are within normal limits. There is no pleural effusion, pneumothorax, or pneumonia. The osseous structures are unremarkable. IMPRESSION: No acute cardiopulmonary abnormality. Dictated by: Dictated on workstation # [id number]
[2022-05-14] MEDS: NS W/KCL 20 MEQ/L 1,000 ML IV SCH ×2 (08:50→18:37)
--- NOTE | 2022-05-14 08:50 | Diagnostic Imaging Report ---
INDICATION: Fever and cough and suspected pulmonary embolism. Patient also has abdominal pain with nausea and vomiting. CTA chest, abdomen and pelvis Thin axial sections through the chest, abdomen and pelvis are obtained following intravenous contrast bolus. Multiplanar MIP images were reconstructed and reviewed. All CT scans use one or more of the following dose optimizing techniques: automated exposure control, MA and/or KvP adjustment based on patient size and exam type or iterative reconstruction. CT angiogram chest: Evaluation of the pulmonary arterial system is without evidence of thromboembolism. No filling defects are seen within central, lobar or segmental branches. The thoracic aorta is normal in caliber. There is no dissection. No pericardial or pleural fluid is identified. No pulmonary infiltrates, nodules or masses are detected. CT abdomen and pelvis: The liver is unremarkable. Gallbladder surgically absent. There is no biliary ductal dilatation. The pancreas and spleen are unremarkable. No adrenal mass is identified. Right kidney is enlarged compared to the left. There is some mild perinephric inflammatory stranding. There also appears to be some enhancement to the proximal right ureter wall. No obstructing lesion is identified. Features may be on an inflammatory basis such as pyelonephritis. No intrarenal or perirenal abscess or fluid collection is detected. Aorta is nonaneurysmal. Bowel loops are normal in caliber. There is no obstruction. The uterus, ovaries and bladder are unremarkable. There is no free fluid or fluid collection identified. The bony structures are nonacute. IMPRESSION: 1. No evidence of pulmonary embolism or acute aortic disease. 2. There is some enlargement of the right kidney with mild perinephric and periureteral inflammatory stranding as well as some enhancement to the ureteral wall. Features are likely on an infectious/inflammatory basis with potential pyelonephritis. No perirenal or intrarenal abscess is detected. The study is otherwise unremarkable. Dictated by: Dictated on workstation # [id number]
--- NOTE | 2022-05-14 09:59 | History & Physical-Hospitalist ---
[facility] 05/14/22 0959: History of Present Illness HPI/Chief Complaint This is a 21 y female with history of cholecystectomy and tonsillec eric/adenoidectomy who presented to the ED on 05/13 with fever, vomiting, headache and body aches. In the ED she complained of SOB and was hyperventilating. Today she reports feeling sick starting the night of 05/09 with fevers and body aches. She was seen in the ED on 05/11/22 for these symptoms, CO VID and Flu were negative. She tried rest, Nyquil, Tylenol and Motrin with little improvement. Yesterday she vomited 20 times, mostly liquid because she was not able to eat much yesterday. She denies any pain or issues with urination, no discharge. Has had good urine output. She denies flank pain, SOB or CP. She has never felt like this before, has not recently been sick, no recent sick contacts, no recent travel. Her last BM was last night and was diarrhea without blood. Her BP has been running low, 90s over 60s. She reports she has normal BP outside of the hospital. Denies dizziness. UA with 2+ protein, 3+ leukocyte esterase, 2-5 RBC, >100 WBC and moderate bacteria. Urine culture with gram negative rods. EKG was sinus rhythm. CT angio chest/abd/pelvis reveals right pyelonephritis. CXR was negative for acute cardiopulmonary process. D-dimer is 2.12. ESR and CRP elevated. test was negative in the ER. Source: patient Exam Limitations: no limitations Date Seen 05/14/22 Time Seen by a Provider: 09:40 Attending Physician [facility] PCP Admitting Physician: Shelbi Santana DO Attending Physician: Shelbi Santana DO Referring Physician Date of Admission May 14, 2022 at 03:00 Home Medications & Allergies Home Medications Reviewed patient Home Medication Reconciliation performed by pharmacy medication reconciliations hot cell technician and/or nursing. Patients Allergies have been reviewed. Allergies Allergies Coded Allergies No Known Drug Allergies (Unverified11/17/08) Past Ahonome-Ydkygg-Zpcpcv Hx Patient Social History Marrital Status: cohabiting Employed/Student: employed (at [employer]) Tobacco Use?: No Smoking Status: Never a Smoker Smokeless Tobacco Frequency: Never a User Use of E-Cig and/or Vaping dev: No Use of E-Cig and/or Vaping Iain: Never a User Substance use?: No Alcohol Use?: Yes Alcohol Frequency: Several times a month Pt feels they are or have been: No Immunizations Up To Date Date of Influenza Vaccine: Apr 04, 2020 First/Initial COVID19 Vaccinat: DENIES Second COVID19 Vaccination Neptali: DENIES Tetanus Booster (TDap): Less Than 5 Years Hepatitis B: No PED Vaccines UTD: Yes Seasonal Allergies Seasonal Allergies: No Current Status status: No status: No Advance Directives: No Communicates: Verbally Primary Language: Macedonian Preferred Spoken Language: Macedonian Is interpretation needed?: No Implanted or Applied Medical D: None Past Medical History Surgeries: Adenoidectomy, Gallbladder, Tonsillectomy Asthma Sexually Transmitted Disease: Yes (CHLAMYDIA IN AUGUST- TREATED) HIV/AIDS: No Kidney Stones Ulcer Blood Disorders: No Adverse Reaction/Blood Tranf: No PMHx: Denies SurgHx: Tonsillectomy Family Medical History FH: hyperlipidemia (MOTHER) FHx: asthma (SIBLING) Cancer, Diabetes, Hypertension, Other Conditions/Hx (Father-unknown "kidney issue") Review of Systems Constitutional: fever, weakness EENTM: No nose congestion, No throat pain Respiratory: No cough, No short of breath Cardiovascular: No chest pain, No edema Gastrointestinal: No abdominal pain, No constipation; nausea, vomiting Genitourinary: No discharge, No dysuria, No frequency, No hematuria, No pain Musculoskeletal: No back pain, No joint pain Skin: No change in color, No dryness Psychiatric/Neurological: Headache Physical Exam Physical Exam Vital Signs Vital Signs - First Documented 05/13/22 21:20 Temp 37.8 Pulse 189 Resp 28 B/P (MAP) 107/89 (95) Pulse Ox 95 O2 Delivery Room Air Capillary Refill : Less Than 3 Seconds Height, Weight, BMI Height: 5'3.00" Weight: 180lbs. oz. 81.694068sc; 36.10 BMI Method:Stated General Appearance: No Apparent Distress, WD/WN HEENT: PERRL/EOMI, Pharynx Normal, Moist Mucous Membranes Neck: Full Range of Motion, Non Tender, Supple Respiratory: Chest Non Tender, Lungs Clear, Normal Breath Sounds, No Accessory Muscle Use, No Respiratory Distress Cardiovascular: Regular Rate, Rhythm, No Edema, No Gallop, No JVD, No Murmur, Normal Peripheral Pulses Gastrointestinal: Normal Bowel Sounds, Non Tender, Soft Back: Normal Inspection, No CVA Tenderness Extremity: Normal Capillary Refill, Normal Range of Motion, Non Tender, No Calf Tenderness, No Pedal Edema Neurologic/Psychiatric: Alert, Oriented x3, No Motor/Sensory Deficits, Normal Mood/Affect, solution coordinator II-XII Norm as Tested Skin: Normal Color, Warm/Dry Lymphatic: No Adenopathy Results Results/Procedures Labs Laboratory Tests 05/13/22 21:22 05/14/22 05:48 Patient resulted labs reviewed. Imaging: Reviewed Imaging Report Imaging [facility]. [place], [place] NAME: APRIL GORDON [facility] REC#: [id number] PT STATUS: ADM IN : 2000 PHYSICIAN: GENI HO DO ADMIT DATE: 05/14/22/ICU Draft Date of Exam:05/13/22 CT MARIPOSA CHEST/NOANG ABD-PELV W INDICATION: Fever and cough and suspected pulmonary embolism. Patient also has abdominal pain with nausea and vomiting. CTA chest, abdomen and pelvis Thin axial sections through the chest, abdomen and pelvis are obtained following intravenous contrast bolus. Multiplanar MIP images were reconstructed and reviewed. All CT scans use one or more of the following dose optimizing techniques: automated exposure control, MA and/or KvP adjustment based on patient size and exam type or iterative reconstruction. CT angiogram chest: Evaluation of the pulmonary arterial system is without evidence of thromboembolism. No filling defects are seen within central, lobar or segmental branches. The thoracic aorta is normal in caliber. There is no dissection. No pericardial or pleural fluid is identified. No pulmonary infiltrates, nodules or masses are detected. CT abdomen and pelvis: The liver is unremarkable. Gallbladder surgically absent. There is no biliary ductal dilatation. The pancreas and spleen are unremarkable. No adrenal mass is identified. Right kidney is enlarged compared to the left. There is some mild perinephric inflammatory stranding. There also appears to be some enhancement to the proximal right ureter wall. No obstructing lesion is identified. Features may be on an inflammatory basis such as pyelonephritis. No intrarenal or perirenal abscess or fluid collection is detected. Aorta is nonaneurysmal. Bowel loops are normal in caliber. There is no obstruction. The uterus, ovaries and bladder are unremarkable. There is no free fluid or fluid collection identified. The bony structures are nonacute. IMPRESSION: 1. No evidence of pulmonary embolism or acute aortic disease. 2. There is some enlargement of the right kidney with mild perinephric and periureteral inflammatory stranding as well as some enhancement to the ureteral wall. Features are likely on an infectious/inflammatory basis with potential pyelonephritis. No perirenal or intrarenal abscess is detected. The study is otherwise unremarkable. Dictated on workstation # [id number] Dict: 05/14/2220 Trans: 05/14/22 0850 [facility] [id number] Interpreted by: LULU SWEENEY MD Electronically signed by: Assessment/Plan Admission Diagnosis severe sepsis, pyelonephritis, dehydration Admission Status: Inpatient Order (span 2 midnights) Reason for Inpatient Admission: severe sepsis, pyelonephritis and dehydration in need of IV fluids and antibiotics Assessment and Plan Severe sepsis Right pyelonephritis Hypotension Dehydration Hypokalemia SVT - in ER received adenosine, now resolved Elevated d-dimer Dyspnea Anemia - likely d/t dilution IV fluids and monitor electrolytes IV Ceftriaxone Potassium replacement CTA without pulmonary embolism Clear liquid diet VTE prophylaxis PPI for GI prophylaxis or stress ulcers Move to 4th floor today given improving clinical picture SHELBI SANTANA DO 05/15/22 0442: Past Kmfrpsg-Daebbc-Bsdkqe Hx Family Medical History FH: hyperlipidemia (MOTHER) FHx: asthma (SIBLING) Assessment/Plan Admission Diagnosis Admission Status: Inpatient Order (span 2 midnights) Reason for Inpatient Admission: Severe sepsis Supervisory-Addendum Brief Verification & Attestation Participated in pt care: history, MDM, physical Personally performed: exam, history, MDM, supervision of care Care discussed with: Medical Student Procedures: n/a Results interpretation: Verified all documentation Verification and Attestation of Medical Student E/M Service A medical student performed and documented this service in my presence. I reviewed and verified all information documented by the medical student and made modifications to such information, when appropriate. I personally performed the physical exam and medical decision making. Shelbi Santana May 15, 2022,04:42 [place] May 14, 2022 09:59 SHELBI SANTANA DO May 15, 2022 04:42
--- NOTE | 2022-05-14 10:10 | Tele-ICU Consult ---
History of Present Illness History of Present Illness Date Seen by Provider: May 14, 2022 Time Seen by Provider: 10:09 Date of Admission (Tele-ICU Physician , consultation as per request of PCP Service provided via interactive audio and video telecommunications E-CARE system to a patient admitted to ICU bed in [facility]. Available chart/ vitals / labs / Images reviewed H&P is from ER notes Patient's information available about PMH, Shx, Fhx allergy reviewed inEMR. ROS as per chart and RN report Now in ICU, hemodynamically stable, but BP still on low side - SBP 90 Video assessment done using teleICU camera, rest of exam as per RN. no complainds now , feels better Discussed with RN. Consultants: Hospital course: (05/14) 21yr old female admitted with c/o fever accompanied by SOB, cough, vomiting, and weakness. CT angio chest/abd/pelvis reveals right pyelonephritis A/P Sepsis with UTI/pyelo - received 4 l NS , BP improving , good UO - - monitor , cont hydration Right pyelonephritis, UTI - Ceftriaxone IV to cont Anemia - delutional N/V - responded to zofran and reglan - resolved SVT in ER - recived adenosine Replacing lytes, follow Dyspnea ( not hypoxic) - CTA - no PE - viral panel neg Lines : periph , (Central Line Necessity Reviewed) Daniel: void OG: Nutrition: Analgesia: Anxiety/ delirium VTE Prophylaxis: yarelis 40 Stress Ulcer Prophylaxis: ppi Glycemic Control: Plans in collaboration with bedside consultants and IM MDs. Discussed with RN to reach out if any questions or concerns A total of 33 minutes of critical care time was devoted to this patient today, required to treat and/or prevent further deterioration of critical care condition ( as above ) . I am remotely monitoring this patient from another state. I am unable to do the bedside exam, and history/physical and pertinent information is taken from other notes in the computer and bedside staff. . Allergies and Home Medications Allergies Coded Allergies: No Known Drug Allergies (Unverified , 11/17/08) Home Medications Cefdinir 300 Mg Capsule, 300 MG PO BID Prescribed by: GENI HO on 05/15/20 0030 Cephalexin 500 Mg Capsule, 500 MG PO TID Prescribed by: DEVYN CEE on 05/09/20 2344 Cephalexin 500 Mg Tablet, 500 MG PO BID Prescribed by: EDITA HUNT on 08/25/21 020 Ferrous Sulfate 325 Mg Tablet, 325 MG PO DAILY@0700 Prescribed by: LEON GOULD on 04/21/20 0901 Hydrocodone/Acetaminophen 1 Each Tablet, 1 EACH PO Q4-6 HOURS PRN for PAIN Prescribed by: GENI HO on 05/15/20 0030 Hydrocodone/Acetaminophen 1 Each Tablet, 1 TAB PO Q4H PRN for PAIN-MODERATE (5- 7) Prescribed by: EDITA HUNT on 08/25/21 020 Hyoscyamine Sulfate 0.125 Mg Tab.subl, 0.25 MG SL Q4H Prescribed by: GENI HO on 05/15/20 003 Ibuprofen 600 Mg Tablet, 600 MG PO Q6HR PRN for PAIN-MODERATE (5-7) Prescribed by: LEON GOULD on 04/21/20 0901 Naproxen 500 Mg Tablet, 500 MG PO BID Prescribed by: EDITA HUNT on 08/26/21214 Nitrofurantoin Monohyd/M-Cryst 100 Mg Capsule, 1 TAB PO BID Prescribed by: GENI HO on 05/28/20 232 Ondansetron 4 Mg Tab.rapdis, 4 MG PO Q6H PRN for NAUSEA/VOMITING Prescribed by: EDITA HUNT on 05/17/20 110 Ondansetron 4 Mg Tab.rapdis, 4 MG PO Q6H PRN for NAUSEA/VOMITING Prescribed by: EDITA HUNT on 08/25/21207 Ondansetron 4 Mg Tab.rapdis, 4-8 MG PO Q6H PRN for NAUSEA/VOMITING Prescribed by: EDITA HUNT on 08/26/21214 Ondansetron 4 Mg Tab.rapdis, 4 MG PO Q6H PRN for NAUSEA/VOMITING Prescribed by: DOROTHEA LOCKETT on 05/11/222041 Oxycodone HCl/Acetaminophen 1 Each Tablet, 1 EACH PO Q4H PRN for PAIN-MODERATE Prescribed by: EDITA HUTN on 05/17/20 110 Oxycodone HCl/Acetaminophen 1 Each Tablet, 1 EACH PO Q6H PRN for PAIN-MODERATE Prescribed by: EDITA HUNT on 08/26/21214 Pantoprazole Sodium 40 Mg Tablet.dr, 40 MG PO DAILY Prescribed by: GENI HO on 05/15/20 0030 Vit/Iron Fumarate/FA 1 Each Tablet, 1 EACH PO DAILY, (Reported) Promethazine HCl 25 Mg Tablet, 25 MG PO Q6H PRN for NAUSEA/VOMITING-2ND LINE Prescribed by: EDITA HUNT on 08/26/21214 Tamsulosin HCl 0.4 Mg Cap, 0.4 MG PO DAILY Prescribed by: EDITA HUNT on 08/25/21 0208 Past Medical/Social/Family Hx Patient Social History Marrital Status: cohabiting Employed/Student: employed Tobacco Use?: No Smoking Status: Never a Smoker Smokeless Tobacco Frequency: Never a User Use of E-Cig and/or Vaping dev: No E-Cig and/or Vaping Freq: Never a User Substance use?: No Alcohol Use?: Yes Alcohol Frequency: Several times a month Pt stated abuse/neglect: No Immunizations Up To Date Influenza Vaccine Up-to-Date: No; Not Current First/Initial COVID19 Vaccinat: DENIES Second COVID19 Vaccination Neptali: DENIES Tetanus Booster (TDap): Less Than 5 Years Hepatitis B: No Current Status status: No status: No Advance Directives: No Communicates: Verbally Primary Language: Kazakh Preferred Spoken Language: Kazakh Is interpretation needed?: No Implanted or Applied Medical D: None Past Medical History PMHx: Denies SurgHx: Tonsillectomy Review of Systems Constitutional: see HPI Focused Exam Lactate Level 05/13/22 22:00: Lactic Acid Level 1.52 Height, Weight, BMI Height: 5'3.00" Weight: 180lbs. oz. 81.608739oa; 36.10 BMI Method:Stated Time of Focused Exam: 23:30 Exam Exam Patient acknowledged, consented, and participated in this virtual visit which was conducted using real time audio/video Vital Signs Date Time Temp Pulse Resp B/P (MAP) Pulse Ox O2 Delivery O2 Flow Rate FiO2 05/14/22 10:00 85 18 107/79 (88) 98 Room Air 05/14/22 09:00 80 96/62 (73) 98 Room Air 05/14/22 08:00 37.3 05/14/22 08:00 87 19 91/55 (67) 97 Room Air 05/14/22 08:00 98 Room Air 05/14/22 07:00 72 05/14/22 07:00 88 18 85/49 (61) 97 Room Air 05/14/22 06:00 87 18 95/54 (68) 97 Room Air 05/14/22 05:45 93 20 92/49 (63) 96 Room Air 05/14/22 05:30 96 19 93/64 (74) 96 Room Air 05/14/22 05:15 101 23 90/46 (61) 96 Room Air 05/14/22 05:00 103 18 98/48 (65) 96 Room Air 05/14/22 04:48 104 93/56 05/14/22 04:48 104 93/56 05/14/22 04:45 107 32 95/56 (69) 97 Room Air 05/14/22 04:45 107 05/14/22 04:30 38.3 104 20 93/56 (68) 97 Room Air 05/14/22 04:30 38.3 05/14/22 04:30 38.3 05/14/22 04:30 97 Room Air 05/14/22 04:15 110 22 111/45 98 05/13/22 23:29 37.7 05/13/22 21:20 37.8 189 28 107/89 (95) 95 Room Air 05/13/22 21:20 Room Air I & O 05/14/22 07:00 Intake Total 1000 ml Balance 1000 ml Height & Weight Height: 5'3.00" Weight: 180lbs. oz. 81.459730ol; 36.10 BMI Method:Stated General Appearance: No Apparent Distress, WD/WN HEENT: PERRL/EOMI, Pharynx Normal, Moist Mucous Membranes Neck: Full Range of Motion, Non Tender, Supple Respiratory: Chest Non Tender, Lungs Clear, Normal Breath Sounds, No Accessory Muscle Use, No Respiratory Distress Cardiovascular: Regular Rate, Rhythm, No Edema, No Gallop, No JVD, No Murmur, Normal Peripheral Pulses Capillary Refill: Less Than 3 Seconds Extremity: Normal Capillary Refill, Normal Range of Motion, Non Tender, No Calf Tenderness, No Pedal Edema Neurologic/Psychiatric: Alert, Oriented x3, No Motor/Sensory Deficits, Normal Mood/Affect, family law paralegal II-XII Norm as Tested Skin: Normal Color, Warm/Dry Lymphatic: No Adenopathy Results Lab Laboratory Tests 05/13/22 21:22 05/14/22 05:48 Assessment/Plan Assessment/Plan 1 JALEEL ALDANA MD May 14, 2022 10:10
[2022-05-14] MEDS ORDERED: ONDA4TAB11 SL (10:16)
[2022-05-14] MEDS: ENOXAPARIN 40 MG/0.4 ML (LOVENOX) SYR SC SCH (10:50)
[2022-05-14 13:43] LABS: CALCIUM 8.2 MG/DL (8.5-10.1); CREATININE SERUM 0.55 MG/DL (0.60-1.30); MAGNESIUM 2.2 MG/DL (1.6-2.4); POTASSIUM 3.8 MMOL/L (3.6-5.0)
[2022-05-14] MEDS: ACETAMINOPHEN 500 MG TAB (TYLENOL) PO PRN ×2 (14:22→23:17)
[2022-05-14] MEDS: FAMOTIDINE 20MG/2ML IV (PEPCID) IVP SCH (21:05)
[2022-05-14] MEDS ORDERED: cefTRIAXone 1 GM PRE-MIX 50 ML IV SCH (22:00)
[2022-05-15] MEDS: NS W/KCL 20 MEQ/L 1,000 ML IV SCH (04:54)
[2022-05-15 05:01] LABS: BASOPHILS % (AUTO) 0 % (0-10); EOSINOPHILS % (AUTO) 0 % (0-10); HEMATOCRIT 31 % (35-52); HEMOGLOBIN 10.6 g/dL (11.5-16.0); LYMPHOCYTES # (AUTO) 1.5 10^3/uL (1.0-4.0); LYMPHOCYTES % (AUTO) 16 % (12-44); MEAN CORPUSCULAR HEMOGLOBIN 32 pg (25-34); MEAN CORPUSCULAR HGB CONC 34 g/dL (32-36); MEAN CORPUSCULAR VOLUME 93 fL (80-99); MEAN PLATELET VOLUME 10.2 fL (9.0-12.2); MONOCYTES # (AUTO) 0.9 10^3/uL (0.0-1.0); MONOCYTES % (AUTO) 9 % (0-12); NEUTROPHILS # (AUTO) 6.8 10^3/uL (1.8-7.8); NEUTROPHILS % (AUTO) 74 % (42-75); PLATELET COUNT 237 10^3/uL (130-400); WHITE BLOOD COUNT 9.2 10^3/uL (4.3-11.0)
[2022-05-15 05:14] LABS: POTASSIUM 4.2 MMOL/L (3.6-5.0)
[2022-05-15 05:15] LABS: CALCIUM 8.5 MG/DL (8.5-10.1)
[2022-05-15 05:17] LABS: TOTAL PROTEIN 6.2 GM/DL (6.4-8.2)
[2022-05-15 05:18] LABS: BILIRUBIN,TOTAL 0.5 MG/DL (0.1-1.0)
[2022-05-15 05:20] LABS: CREATININE SERUM 0.59 MG/DL (0.60-1.30)
[2022-05-15 05:23] LABS: MAGNESIUM 1.7 MG/DL (1.6-2.4)
[2022-05-15] MEDS ORDERED: POTASSIUM CL 10MEQ/50ML IVPB 50 ML IV SCH (06:00)
[2022-05-15] MEDS ORDERED: KCL 20 MEQ TAB (K-DUR) PO SCH (06:00)
[2022-05-15] MEDS ORDERED: MAGNESIUM 1 GM/100 ML IVPB 100 ML IV SCH (06:00)
--- NOTE | 2022-05-15 07:57 | Progress Note - Hospitalist ---
Subjective HPI/CC On Admission Date Seen by Provider: May 15, 2022 Time Seen by Provider: 11:00 This is a 21 y female with history of cholecystectomy and tonsillectomy/adenoidectomy who presented to the ED on 05/13 with fever, vomiting, headache and body aches. In the ED she complained of SOB and was hyperventilating. Today she reports feeling sick starting the night of 05/09 with fevers and body aches. She was seen in the ED on 05/11/22 for these symptoms, COVID and Flu were negative. She tried rest, Nyquil, Tylenol and Motrin with little improvement. Yesterday she vomited 20 times, mostly liquid because she was not able to eat much yesterday. She denies any pain or issues with urina tion, no discharge. Has had good urine output. She denies flank pain, SOB or CP. She has never felt like this before, has not recently been sick, no recent sick contacts, no recent travel. Her last BM was last night and was diarrhea without blood. Her BP has been running low, 90s over 60s. She reports she has normal BP outside of the hospital. Denies dizziness. UA with 2+ protein, 3+ leukocyte esterase, 2-5 RBC, >100 WBC and moderate bacteria. Urine culture with gram negative rods. EKG was sinus rhythm. CT angio chest/abd/pelvis reveals right pyelonephritis. CXR was negative for acute cardiopulmonary process. D-dimer is 2.12. ESR and CRP elevated. test was negative in the ER. Focused Exam Lactate Level 05/13/22 22:00: Lactic Acid Level 1.52 Time of Focused Exam: 23:30 Objective Exam Vital Signs Vital Signs Date Time Temp Pulse Resp B/P (MAP) Pulse Ox O2 Delivery O2 Flow Rate FiO2 05/15/22 14:33 36.2 84 16 128/88 99 Room Air Capillary Refill : Less Than 3 Seconds Results/Procedures Lab Patient resulted labs reviewed. Imaging: Reviewed Imaging Report NIKUNJ SANTANA DO May 15, 2022 07:57
[2022-05-15] MEDS: ACETAMINOPHEN 500 MG TAB (TYLENOL) PO PRN (08:26)
[2022-05-15] MEDS: FAMOTIDINE 20MG/2ML IV (PEPCID) IVP SCH (08:26)
[2022-05-15] MEDS: ENOXAPARIN 40 MG/0.4 ML (LOVENOX) SYR SC SCH (09:03)
[2022-05-15] MEDS ORDERED: CEFD300C3 PO (10:36)
[2022-05-15] MEDS ORDERED: METO-310 PO (10:36)
--- NOTE | 2022-05-15 10:39 | Discharge Summary ---
Discharge Summary Hospital Course Was the Problem List Reviewed?: Yes Problems/Dx: (1) Severe sepsis Status: Acute (2) Pyelonephritis Status: Acute Hospital Course Date of Admission: May 14, 2022 at 03:00 Admission Diagnosis : Family Physician/Provider: Romina Sharp MD Date of Discharge: 05/15/22 Discharge Diagnosis: [ ] Hospital Course: Short course after admitted to the ICU for severe sepsis from pyelonephritis. Antibiotics initiated empirically. IV fluids resolved hypertension. Patient was able to discharge home on Reglan and antibiotics Labs and Pending Lab Test: Laboratory Tests 05/14/22 13:16: Sodium Level 136, Potassium Level 3.8, Chloride Level 110H, Carbon Dioxide Level 21, Anion Gap 5, Blood Urea Nitrogen 7, Creatinine 0.55L, Estimat Glomerular Filtration Rate 133, BUN/Creatinine Ratio 13, Glucose Level 95, Calcium Level 8.2L, Magnesium Level 2.2 05/15/22 04:44: Sodium Level 137, Potassium Level 4.2, Chloride Level 111H, Carbon Dioxide Level 18L, Anion Gap 8, Blood Urea Nitrogen 7, Creatinine 0.59L, Estimat Glomerular Filtration Rate 131, BUN/Creatinine Ratio 12, Glucose Level 90, Calcium Level 8 .5, Magnesium Level 1.7, White Blood Count 9.2, Red Blood Count 3.35L, Hemoglobin 10.6L, Hematocrit 31L, Mean Corpuscular Volume 93, Mean Corpuscular Hemoglobin 32, Mean Corpuscular Hemoglobin Concent 34, Red Cell Distribution Width 12.1, Platelet Count 237, Mean Platelet Volume 10.2, Immature Granulocyte % (Auto) 0, Neutrophils (%) (Auto) 74, Lymphocytes (%) (Auto) 16, Monocytes (%) (Auto) 9, Eosinophils (%) (Auto) 0, Basophils (%) (Auto) 0, Neutrophils # (Auto) 6.8, Lymphocytes # (Auto) 1.5, Monocytes # (Auto) 0.9, Eosinophils # (Auto) 0.0, Basophils # (Auto) 0.0, Immature Granulocyte # (Auto) 0.0, Corrected Calcium 9.3, Total Bilirubin 0.5, Aspartate Amino Transf (AST/SGOT) 14, Alanine Aminotr ansferase (ALT/SGPT) 21, Alkaline Phosphatase 74, Total Protein 6.2L, Albumin 3.0L Microbiology 05/14/22 MRSA Screen - Final, Complete No growth 05/13/22 Urine Culture - Preliminary, Resulted Gram Negative Adan 05/13/22 Blood Culture - Preliminary, Resulted No growth Home Meds Active Reported Ondansetron Odt (Ondansetron) 4 Mg Tab.rapdis 4 Mg SL Q6H PRN Assessment/Pt Instructions PCP in 1 week Discharge Planning: <30 minutes discharge planning Discharge Instructions Discharge Diet: No Restrictions Discharge Physical Examination Vital Signs Vital Signs Date Time Temp Pulse Resp B/P (MAP) Pulse Ox O2 Delivery O2 Flow Rate FiO2 05/15/22 10:00 71 19 107/79 (88) 96 Room Air 05/15/22 08:01 37.6 General Appearance: No Apparent Distress, WD/WN, Chronically ill Allergies: Coded Allergies: No Known Drug Allergies (Unverified , 11/17/08) Discharge Summary Date of Admission May 14, 2022 at 03:00 Date of Discharge Discharge Date: May 15, 2022 Admission Diagnosis severe sepsis, pyelonephritis, dehydration NIKUNJ SANTANA DO May 15, 2022 10:39
--- NOTE | 2022-05-15 12:14 | Tele-ICU Progress Note ---
Subjective Date Seen by a Provider: May 15, 2022 Time Seen by a Provider: 10:49 Subjective/Events-last exam (Tele-ICU Physician , Progress Note ) Service provided via interactive audio and video telecommunications E-CARE system to a patient admitted to ICU bed in [facility]. Available chart/ vitals / labs / Images reviewed Video assessment done using teleICU camera, rest of exam as per RN Discussed with RN Events overnight : FEBRILE 37.6 hemodynamically stable Respiratory - ra I/O = pos 2 L Drips: Pressors- no Consultants: Hospital course: Patient is seen today for sepsis Consultants: Hospital course: (05/14) 21yr old female admitted with c/o fever accompanied by SOB, cough, vomiting, and weakness. CT angio chest/abd/pelvis reveals right pyelonephritis A/P Sepsis with UTI/pyelo - received 4 l NS , BP improving , good UO - resolving Right pyelonephritis, UTI - urine Cx with GNR - Ceftriaxone IV to cont Anemia - delutional , stable today N/V - responded to zofran and reglan - resolved SVT in ER - recived adenosine Replacing lytes, follow- no more events Dyspnea ( not hypoxic) - CTA - no PE - viral panel neg Lines : periph , (Central Line Necessity Reviewed) Daniel: void OG: Nutrition: Analgesia: Anxiety/ delirium VTE Prophylaxis: yarelis 40 Stress Ulcer Prophylaxis: ppi Glycemic Control: Plans in collaboration with bedside consultants and IM MDs. Discussed with RN to reach out if any questions or concerns A total of 10 minutes of critical care time was devoted to this patient today, required to treat and/or prevent further deterioration of critical care condition ( as above ) . I am remotely monitoring this patient from another state. I am unable to do the bedside exam, and history/physical and pertinent information is taken from other notes in the computer and bedside staff. . Sepsis Event Evaluation Height, Weight, BMI Height: 5'3.00" Weight: 180lbs. oz. 81.292442zj; 35.98 BMI Method:Stated Focused Exam Lactate Level 05/13/22 22:00: Lactic Acid Level 1.52 Time of Focused Exam: 23:30 Exam Exam Patient acknowledged, consented, and participated in this virtual visit which was conducted using real time audio/video Vital Signs Date Time Temp Pulse Resp B/P (MAP) Pulse Ox O2 Delivery O2 Flow Rate FiO2 05/15/22 12:00 36.2 70 16 128/88 (101) 99 Room Air 05/15/22 10:00 71 19 107/79 (88) 96 Room Air 05/15/22 08:05 96 Room Air 05/15/22 08:01 37.6 81 16 134/92 (106) 96 Room Air 05/15/22 08:00 75 23 154/68 (96) 95 Room Air 05/15/22 07:01 79 05/15/22 07:00 73 22 134/92 (106) 96 Room Air 05/15/22 06:00 77 21 120/73 (89) 95 Room Air 05/15/22 05:00 105 21 94 Room Air 05/15/22 04:00 80 20 107/74 (85) 96 Room Air 05/15/22 03:00 75 17 96 Room Air 05/15/22 02:00 73 20 114/92 (99) 97 Room Air 05/15/22 01:09 80 05/15/22 01:00 80 05/15/22 00:19 81 20 104/67 (79) 97 Room Air 05/15/22 00:00 85 23 104/67 (79) 95 Room Air 05/14/22 23:00 75 19 98 Room Air 05/14/22 22:00 69 20 107/74 (85) 98 Room Air 05/14/22 21:00 73 21 98/67 (77) 95 Room Air 05/14/22 20:48 36.9 05/14/22 20:00 63 20 96/66 (76) 97 Room Air 05/14/22 19:30 70 05/14/22 19:30 97 Room Air 05/14/22 19:00 62 12 106/82 (90) 98 Room Air 05/14/22 19:00 64 05/14/22 16:30 36.5 05/14/22 16:10 97 Room Air 05/14/22 13:00 71 I & O 05/15/22 07:00 Intake Total 2125 ml Output Total 2250 ml Balance -125 ml Height & Weight Height: 5'3.00" Weight: 180lbs. oz. 81.282950fz; 35.98 BMI Method:Stated General Appearance: No Apparent Distress, WD/WN HEENT: PERRL/EOMI, Pharynx Normal, Moist Mucous Membranes Neck: Full Range of Motion, Non Tender, Supple Respiratory: Chest Non Tender, Lungs Clear, Normal Breath Sounds, No Accessory Muscle Use, No Respiratory Distress Cardiovascular: Regular Rate, Rhythm, No Edema, No Gallop, No JVD, No Murmur, Normal Peripheral Pulses Capillary Refill: Less Than 3 Seconds Extremity: Normal Capillary Refill, Normal Range of Motion, Non Tender, No Calf Tenderness, No Pedal Edema Neurologic/Psychiatric: Alert, Oriented x3, No Motor/Sensory Deficits, Normal Mood/Affect, education program specialist II-XII Norm as Tested Skin: Normal Color, Warm/Dry Lymphatic: No Adenopathy Results Lab Laboratory Tests 05/13/22 21:22 05/14/22 05:48 05/14/22 13:16 05/15/22 04:44 Assessment/Plan Assessment/Plan 1 JALEEL ALDANA MD May 15, 2022 12:14
[2022-05-15 14:33] VITALS: BP 128/88
[2022-05-15] MEDS ORDERED: FAMOTIDINE 20 MG (PEPCID) TABLET PO SCH (21:00)
== END 2022-05-15 14:00 | disposition home or self-care (01) | DRG 872 ==
LOC: EDUNIT# 21:15 → ER 21:16 → ICU 05-14 03:00
PROVIDERS: ADMIT Internal Medicine; ATTEND Internal Medicine
DX: A41.9 Sepsis, unspecified organism (principal); N12 Tubulo-interstitial nephritis, not specified as acute or chronic; I47.1 Supraventricular tachycardia; R65.20 Severe sepsis without septic shock; E86.0 Dehydration; Z20.822 Contact with and (suspected) exposure to COVID-19; F41.8 Other specified anxiety disorders; J06.9 Acute upper respiratory infection, unspecified; J45.909 Unspecified asthma, uncomplicated; I95.9 Hypotension, unspecified; E87.6 Hypokalemia; R06.00 Dyspnea, unspecified; D64.9 Anemia, unspecified; R11.2 Nausea with vomiting, unspecified
CPT/HCPCS: 36415; 71045; 71275; 74177; 80048; 80053; 80306; 81000; 82150; 83605; 83690; 83735; 83874; 83880; 84100; 84145; 84484; 84703; 85007; 85025; 85027; 85379; 85610; 85652; 85730; 86141; 87040; 87077; 87081; 87088; 87186; 87636; 93005; 93041

== ENCOUNTER 2022-06-18 15:32 | Emergency (ER) | payer MEDICAID ==
[~2022-06-18] VITALS: Ht 157 cm; Wt 88.9 kg
[~2022-06-18 15:32] MED LIST changes: +METO-310 PO; +ONDA4TAB11 SL
[2022-06-18 16:16] LABS: BILIRUBIN,URINE NEGATIVE (NEGATIVE); CLARITY,URINE SL CLOUDY; COLOR,URINE YELLOW; GLUCOSE, URINE (UA) NEGATIVE (NEGATIVE); KETONES,URINE NEGATIVE (NEGATIVE); LEUKOCYTE ESTERASE ,URINE TRACE (NEGATIVE); NITRITE,URINE NEGATIVE (NEGATIVE); PROTEIN,URINE NEGATIVE (NEGATIVE)
--- NOTE | 2022-06-18 16:20 | ED GU-Female ---
General Chief Complaint: - Reproductive Stated Complaint: 8 WK PREG - CRAMPING & SPOTTING Nursing Triage Note: ARRIVES TODAY WITH A C/O SPOTTING FOR ONE WEEK. STATES SHE REPORTED THIS TO HER OB DR AND WAS TOLD TO COME TO THE ED. VERBALIZES SHE IS HAVING ONLY A SMALL AMOUNT WHEN SHE WIPES, SHE DOES NOT REQUIRE A PAD FOR THIS DISCHARGE, SPOTTING FOR 7 DAYS WITH MODERATE LOWER ABDOMINAL CRAMPING WITH A PAIN RATING OF 8/10. STATES SHE IS 8 WEEKS AND HAD HER IUD REMOVED IN APRIL AND THINKS SHE BECAME RIGHT AFTER THE IUD REMOVAL Source: patient Exam Limitations: no limitations History of Present Illness Date Seen by Provider: Jun 18, 2022 Time Seen by Provider: 16:15 Initial Comments This is a 21 yo female who presented to the ER via POV with c/o lower abdominal cramping and light vaginal spotting when she wipes after urinating. States bleeding is minimal and she does not require sanitary pad. Rates abdominal cramping 8/10. States she believes she is 8 weeks . Had her Mirena removed April of 2022, believes she conceived shortly after removal. On May 13, 2022 she had negative serum qualitative test. At that time she was treated in the ICU for acute Pyelonephritis. No fever, chills, nausea, vomiting, diarrhea, dysuria. Allergies and Home Medications Allergies Coded Allergies: No Known Drug Allergies (Unverified , 11/17/08) Patient Home Medication List Home Medication List Reviewed: Yes Cefdinir (Cefdinir) 300 Mg Capsule, 300 MG PO BID Prescribed by: NIKUNJ SANTANA on 05/15/22 1036 Metoclopramide HCl (Reglan) 10 Mg Tablet, 10 MG PO Q6H PRN for NAUSEA/VOMITING Prescribed by: NIKUNJ SANTANA on 05/15/22 1036 Metronidazole (Metronidazole) 500 Mg Tablet, 500 MG PO BID Prescribed by: OSBALDO BILLS on 06/18/221913 Review of Systems Review of Systems Constitutional: see HPI Expected Date of Delivery: Jan 26, 2023 Past Opqkobt-Mccmvl-Vhqjuw Hx Patient Social History Tobacco Use?: No Use of E-Cig and/or Vaping dev: No Substance use?: No Alcohol Use?: No Immunizations Up To Date Tetanus Booster (TDap): Less than 5yrs PED Vaccines UTD: Yes Influenza Vaccine Up-to-Date: No; Not Current First/Initial COVID19 Vaccinat: 2020 Second COVID19 Vaccination Neptali: 2020 Third COVID19 Vaccination Date: denies Seasonal Allergies Seasonal Allergies: No Past Medical History Surgery/Hospitalization HX: TONSILS, [facility] DENIES MEDICAL HISTORY Surgeries: Yes ([facility] 05/26/[address] HDZ) Adenoidectomy, Gallbladder, Tonsillectomy Respiratory: Yes Asthma Cardiac: No Neurological: No Expected Date of Delivery: Jan 26, 2023 Reproductive Disorders: No Female Reproductive Disorders: Denies Sexually Transmitted Disease: Yes (CHLAMYDIA IN AUGUST- TREATED) HIV/AIDS: No Genitourinary: Yes (RIGHT URETERAL STONE 07/2021-NO INTERVENTION) Kidney Stones Gastrointestinal: Yes Ulcer Musculoskeletal: No Endocrine: No HEENT: No Cancer: No Psychosocial: No Integumentary: No Blood Disorders: No Adverse Reaction/Blood Tranf: No Family Medical History FH: hyperlipidemia (MOTHER) FHx: asthma (SIBLING) Cancer, Diabetes, Hypertension, Other Conditions/Hx Physical Exam Vital Signs Vital Signs - First Documented 06/18/22 15:45 Temp 36.0 Pulse 84 Resp 16 B/P (MAP) 117/69 (85) Pulse Ox 96 O2 Delivery Room Air Capillary Refill : Less Than 3 Seconds Height, Weight, BMI Height: 5'3.00" Weight: 180lbs. oz. 81.292668ll; 36.00 BMI Method:Stated General Appearance: WD/WN, no apparent distress HEENT: PERRL/EOMI, normal ENT inspection, pharynx normal Neck: full range of motion, normal inspection Cardiovascular: regular rate, rhythm, no murmur Respiratory: lungs clear, normal breath sounds, no respiratory distress, no accessory muscle use Gastrointestinal: normal bowel sounds, non tender, soft Pelvic: normal external exam; No mass, No tender w/ cervical motion, No vaginal bleeding; other (copious odorus white discharge ) Back: normal inspection, no vertebral tenderness Extremities: normal range of motion, non-tender, normal inspection Neurologic/Psychiatric: no motor/sensory deficits, alert, normal mood/affect, oriented x 3 Skin: normal color, warm/dry Progress/Results/Core Measures Suspected Sepsis SIRS Temperature: Pulse: 84 Respiratory Rate: 16 Laboratory Tests 06/18/22 16:30: White Blood Count 9.8 Blood Pressure 117 /69 Mean: 85 Laboratory Tests 06/18/22 16:30: Creatinine 0.60, Platelet Count 319, Total Bilirubin 0.4 Results/Orders Lab Results Laboratory Tests Test 06/18/22 16:13 06/18/22 16:30 06/18/22 18:33 Range/Units Urine Color YELLOW Urine Clarity SL CLOUDY Urine pH 6.0 5-9 Urine Specific [place] 1.025 H 1.016-1.022 Urine Protein NEGATIVE NEGATIVE Urine Glucose (UA) NEGATIVE NEGATIVE Urine Ketones NEGATIVE NEGATIVE Urine Nitrite NEGATIVE NEGATIVE Urine Bilirubin NEGATIVE NEGATIVE Urine Urobilinogen 0.2 < = 1.0 MG/DL Urine Leukocyte Esterase TRACE H NEGATIVE Urine RBC (Auto) TRACE-I H NEGATIVE Urine RBC 2-5 H /HPF Urine WBC 2-5 /HPF Urine Squamous Epithelial Cells 10-25 H /HPF Urine Crystals NONE /LPF Urine Bacteria FEW H /HPF Urine Casts NONE /LPF Urine Mucus NEGATIVE /LPF Urine Culture Indicated NO White Blood Count 9.8 4.3-11.0 10^3/uL Red Blood Count 4.12 3.80-5.11 10^6/uL Hemoglobin 13.0 11.5-16.0 g/dL Hematocrit 38 35-52 % Mean Corpuscular Volume 93 80-99 fL Mean Corpuscular Hemoglobin 32 25-34 pg Mean Corpuscular Hemoglobin Concent 34 32-36 g/dL Red Cell Distribution Width 12.7 10.0-14.5 % Platelet Count 319 130-400 10^3/uL Mean Platelet Volume 9.5 9.0-12.2 fL Immature Granulocyte % (Auto) 0 % Neutrophils (%) (Auto) 73 42-75 % Lymphocytes (%) (Auto) 21 12-44 % Monocytes (%) (Auto) 5 0-12 % Eosinophils (%) (Auto) 0 0-10 % Basophils (%) (Auto) 0 0-10 % Neutrophils # (Auto) 7.2 1.8-7.8 X 10^3 Lymphocytes # (Auto) 2.1 1.0-4.0 X 10^3 Monocytes # (Auto) 0.5 0.0-1.0 X 10^3 Eosinophils # (Auto) 0.0 0.0-0.3 10^3/uL Basophils # (Auto) 0.0 0.0-0.1 10^3/uL Immature Granulocyte # (Auto) 0.0 0.0-0.1 10^3/uL Sodium Level 139 135-145 MMOL/L Potassium Level 3.6 3.6-5.0 MMOL/L Chloride Level 109 H 98-107 MMOL/L Carbon Dioxide Level 19 L 21-32 MMOL/L Anion Gap 11 5-14 MMOL/L Blood Urea Nitrogen 8 7-18 MG/DL Creatinine 0.60 0.60-1.30 MG/DL Estimat Glomerular Filtration Rate 130 BUN/Creatinine Ratio 13 Glucose Level 100 70-105 MG/DL Calcium Level 9.6 8.5-10.1 MG/DL Corrected Calcium 9.3 8.5-10.1 MG/DL Total Bilirubin 0.4 0.1-1.0 MG/DL Aspartate Amino Transf (AST/SGOT) 16 5-34 U/L Alanine Aminotransferase (ALT/SGPT) 24 0-55 U/L Alkaline Phosphatase 73 40-136 U/L Total Protein 7.6 6.4-8.2 GM/DL Albumin 4.4 3.2-4.5 GM/DL Human Chorionic Gonadotropin, Quant 31086 H <5 MIU/ML Micro Results Microbiology 06/18/22 Wet Prep - Final, Complete My Orders Orders - OSBALDO BILLS EMPLOYEE TRAINING SPECIALIST Wet Prep (06/18/22 16:14) Urine Culture (06/18/22 16:29) Comprehensive Metabolic Panel (06/18/22 17:15) Acetaminophen Tablet (Tylenol Tablet) (06/18/22 17:30) Us Ob<14 Wks Sngle W/Transvag (06/18/22 17:40) Neisseria Gonorrhea Swab (06/18/22 18:28) Genital Culture (06/18/22 18:28) Chlamydia Trachomatis Swab (06/18/22 18:28) Metronidazole Tablet (Flagyl Tablet) (06/18/22 19:15) Medications Given in ED Current Medications Medications Dose Ordered Sig/Graciela Route Start Time Stop Time Status Last Admin Dose Admin Acetaminophen 500 mg ONCE ONCE PO 06/18/22 17:30 06/18/22 17:31 DC 06/18/22 17:44 500 MG Metronidazole 500 mg ONCE ONCE PO 06/18/22 19:15 06/18/22 19:16 DC 06/18/22 19:28 500 MG Vital Signs/I&O 06/18/22 06/18/22 15:45 19:34 Temp 36.0 Pulse 84 75 Resp 16 18 B/P (MAP) 117/69 (85) 114/77 Pulse Ox 96 100 O2 Delivery Room Air Room Air Capillary Refill : Less Than 3 Seconds Blood Pressure Mean: 85 Progress Note : Time: 16:21 Progress Note This patient presents with vaginal bleeding and lower abdominal cramping in the first trimester. Differential diagnosis includes ectopic, IUP, threatened/inevitable , implantation bleeding, UTI, BV. Has no history of coagulopathy or infectious symptoms. She did have recent hospitalization middle of May for acute Pyelonephritis, Will go ahead and obtain basic labs, UA, ABO Rh, CMP, TVUS. Will reassess after labs and imaging completed. HPI was obtained by patient. Review of labs from last admission showed she had a negative serum qualitative test. States she has not had a menstrual cycle in months due to her Mirena. CBC grossly unremarkable, CMP unremarkable, hCG quant 12,892. UA positive for trace leukocyte Estrace, 2-5 WBC, few bacteria, 10-25 epithelial cells, likely contaminated sample. We will go ahead and culture. Added gonorrhea, chlamydia and wet prep. Her wet prep was positive for moderate clue cells. We will go ahead and treat with Flagyl 500 mg p.o. twice daily for 7 days. Her ultrasound does not returned but she is adamant that she needs to discharge home to take care of her child. Would like results called to her. Discussed that there is anything urgent or emergent found on her ultrasound she would need to return to the emergency department, verbalized understanding. Given first dose of Flagyl in the emergency department. Prescription sent to [facility]. Ultrasound report reviewed and shows a single intrauterine measuring approximately 5 weeks and 3 days with trace amount of esther gestational fluid. Results called to patient per her request. Discussed that spotting could be from the bacterial vaginosis however if she has any increasing pain, bleeding, she needs to present to the emergency department as she would require RhoGAM if she has spontaneous due her B negative blood type status. She verbalized understanding. Diagnostic Imaging Diagonstic Imaging: Ultrasound Comments Impression: Single IUP, yolk sac visualized. Measuring 5 weeks and 3 days with a trace amount of esther- gestational fluid. The pole was not visualized at this time. Per Teleradiology Departure Impression Primary Impression: Scant vaginal bleeding in Additional Impression: Bacterial vaginosis Disposition: 01 HOME, SELF-CARE Condition: Improved Departure-Patient Inst. Decision time for Depature: 19:11 Referrals: [facility] (PCP) Primary Care Physician LEON GOULD MD (Family) Primary Care Physician Patient Instructions: Bacterial Vaginosis ED Add. Discharge Instructions: Plan: 1. Take antibiotics as directed and complete full course. 2. Make sure you are complaining of fluids to stay hydrated. 3. Call your DENTAL TECHNICIAN INSTRUCTOR for close follow-up. 4. I will notify you via telephone of your ultrasound results. If there is anything urgent or emergent you will need to return to the emergency department. 5. You can take Tylenol as needed for pain per package. 6. Return to the ER if you have any new, concerning, worsening symptoms. All discharge instructions reviewed with patient and/or family. Voiced und erstanding. Scripts Metronidazole (Metronidazole) 500 Mg Tablet 500 MG PO BID for 7 Days, #13 TAB 0 Refills Prov: OSBALDO BILLS EMPLOYEE TRAINING SPECIALIST 06/18/22 Copy Copies To 1: [facility]; LEON GOULD MD, STORMY D EMPLOYEE TRAINING SPECIALIST Jun 18, 2022 16:20
[2022-06-18 16:25] LABS: BACTERIA,URINE FEW /HPF
[2022-06-18 16:47] LABS: BASOPHILS % (AUTO) 0 % (0-10); EOSINOPHILS % (AUTO) 0 % (0-10); HEMATOCRIT 38 % (35-52); LYMPHOCYTES # (AUTO) 2.1 X 10^3 (1.0-4.0); LYMPHOCYTES % (AUTO) 21 % (12-44); MEAN CORPUSCULAR HEMOGLOBIN 32 pg (25-34); MEAN CORPUSCULAR HGB CONC 34 g/dL (32-36); MEAN CORPUSCULAR VOLUME 93 fL (80-99); MEAN PLATELET VOLUME 9.5 fL (9.0-12.2); MONOCYTES # (AUTO) 0.5 X 10^3 (0.0-1.0); MONOCYTES % (AUTO) 5 % (0-12); NEUTROPHILS # (AUTO) 7.2 X 10^3 (1.8-7.8); NEUTROPHILS % (AUTO) 73 % (42-75); PLATELET COUNT 319 10^3/uL (130-400); WHITE BLOOD COUNT 9.8 10^3/uL (4.3-11.0)
[2022-06-18 17:26] LABS: ALBUMIN 4.4 GM/DL (3.2-4.5); POTASSIUM 3.6 MMOL/L (3.6-5.0)
[2022-06-18 17:27] LABS: CALCIUM 9.6 MG/DL (8.5-10.1)
[2022-06-18 17:29] LABS: TOTAL PROTEIN 7.6 GM/DL (6.4-8.2)
[2022-06-18 17:30] LABS: BILIRUBIN,TOTAL 0.4 MG/DL (0.1-1.0)
[2022-06-18] MEDS ORDERED: ACETAMINOPHEN 500 MG TAB (TYLENOL) PO ONE (17:30)
[2022-06-18 17:32] LABS: CREATININE SERUM 0.6 MG/DL (0.60-1.30)
[2022-06-18] MEDS ORDERED: METR-145 PO (19:14)
[2022-06-18] MEDS ORDERED: metroNIDAZOLE 500 MG (FLAGYL) TAB PO ONE (19:15)
[2022-06-18 19:34] VITALS: BP 114/77
--- NOTE | 2022-06-19 08:34 | Diagnostic Imaging Report ---
TECHNIQUE: Live grayscale and color Doppler ultrasound was performed of the pelvis both transabdominally and endovaginally. REASON FOR EXAM: Vaginal bleeding. COMPARISON: None. FINDINGS: A sonolucent focus is seen within the endometrial canal measuring 0.8 cm, consistent with a 5 week 3 day gestation. A yolk sac is visualized. No pole is identified. A 2nd sonolucent focus is seen within the endometrium left of midline measuring 1.2 cm. A small amount of subchorionic hemorrhage is seen abutting this smaller sonolucent focus. The bilateral ovaries are well visualized and have a normal appearance. The right ovary measures 2.7 x 1.6 x 2.5 cm. The left ovary measures 3.0 x 1.7 x 2.4 cm. Trace free fluid is visualized within the posterior cul-de-sac. IMPRESSION: 1. Sonolucent focus with yolk sac, which may represent early gestation. No pole or heart tones are seen. Recommend continued follow-up with serial beta hCGs and pelvic ultrasound as indicated. 2. Nonspecific additional sonolucent focus left of midline measuring 1.2 cm. This may represent a blighted ovum versus additional early gestation. A small amount of subchorionic hemorrhage is seen abutting this smaller sonolucent focus. Recommend attention on follow-up. The 2nd smaller sonolucent focus was not mentioned in the preliminary report. Otherwise, agree with the preliminary report. Report was faxed and called to Dr. [facility] by ingrid at 8:33am. [place], was also notified. Dictated by: Dictated on workstation # [id number]
== END 2022-06-18 19:34 | disposition home or self-care (01) ==
LOC: EDUNIT# 15:32 → ER 15:34
DX: O20.9 Hemorrhage in early pregnancy, unspecified (principal); O23.591 Infection of other part of genital tract in pregnancy, first trimester; Z3A.08 8 weeks gestation of pregnancy
CPT/HCPCS: 36415; 76801; 76817; 80053; 81000; 84702; 84703; 85025; 86900; 86901; 87070; 87077; 87088; 87186; 87205; 87210; 87491; 87591

== ENCOUNTER 2022-09-14 21:02 | Emergency (ER) | payer MEDICAID ==
[~2022-09-14] VITALS: Ht 157 cm; Wt 90.2 kg
[~2022-09-14 21:02] MED LIST changes: +METR-145 PO
[2022-09-14 21:18] VITALS: BP 124/70
--- NOTE | 2022-09-14 21:25 | ED GU-Female ---
General Chief Complaint: OB > 20 WEEKS Stated Complaint: 17 WEEKS PREG CRAMPING History of Present Illness Date Seen by Provider: Sep 14, 2022 Time Seen by Provider: 20:16 Initial Comments 22-year-old female who [id number], with ANA of 02/17/23, and 17 weeks , is here with complaints of mild suprapubic cramping which began yesterday evening. Patient 1 episode yesterday of clear fluid leaking, which she does not think is urine, and today she had another episode of this occur. Patient did not have any continuing leakage or dripping of fluid after this. Patient next OB appointment is on October 01. Patient is taking vitamins. Patient had preeclampsia in her last , and had a normal vaginal delivery. Denies vaginal bleeding, ongoing vaginal discharge or fluids, dysuria, nausea and vomiting, abdominal pain, fever and chills, diarrhea. Allergies and Home Medications Allergies Coded Allergies: No Known Drug Allergies (Unverified , 11/17/08) Patient Home Medication List Home Medication List Reviewed: Yes Cefdinir (Cefdinir) 300 Mg Capsule, 300 MG PO BID Prescribed by: NIKUNJ SANTANA on 05/15/22 1036 Metoclopramide HCl (Reglan) 10 Mg Tablet, 10 MG PO Q6H PRN for NAUSEA/VOMITING Prescribed by: NIKUNJ SANTANA on 05/15/22 1036 Metronidazole (Metronidazole) 500 Mg Tablet, 500 MG PO BID Prescribed by: OSBALDO BILLS on 06/18/221913 Review of Systems Review of Systems Constitutional: no symptoms reported EENTM: no symptoms reported Respiratory: no symptoms reported Cardiovascular: no symptoms reported Gastrointestinal: no symptoms reported Genitourinary: see HPI, other Musculoskeletal: no symptoms reported Skin: no symptoms reported Psychiatric/Neurological: No Symptoms Reported Endocrine: No Symptoms Reported Past Uectvxf-Ziycgo-Vagyul Hx Immunizations Up To Date Tetanus Booster (TDap): Less than 5yrs PED Vaccines UTD: Yes Influenza Vaccine Up-to-Date: No; Not Current First/Initial COVID19 Vaccinat: 2020 Second COVID19 Vaccination Neptali: 2020 Third COVID19 Vaccination Date: denies Seasonal Allergies Seasonal Allergies: No Past Medical History Surgery/Hospitalization HX: TONSILS, SAMIR DENIES MEDICAL HISTORY Surgeries: Yes (SAMIR 05/26/[address] HDZ) Adenoidectomy, Gallbladder, Tonsillectomy Respiratory: Yes Asthma Cardiac: No Neurological: No Reproductive Disorders: No Female Reproductive Disorders: Denies Sexually Transmitted Disease: Yes (CHLAMYDIA IN AUGUST- TREATED) HIV/AIDS: No Genitourinary: Yes (RIGHT URETERAL STONE 07/2021-NO INTERVENTION) Kidney Stones Gastrointestinal: Yes Ulcer Musculoskeletal: No Endocrine: No HEENT: No Cancer: No Psychosocial: No Integumentary: No Blood Disorders: No Adverse Reaction/Blood Tranf: No Family Medical History FH: hyperlipidemia (MOTHER) FHx: asthma (SIBLING) Cancer, Diabetes, Hypertension, Other Conditions/Hx Physical Exam Vital Signs Vital Signs - First Documented 09/14/22 21:18 Temp 36.9 Pulse 73 Resp 20 B/P (MAP) 124/70 (88) Pulse Ox 99 O2 Delivery Room Air Capillary Refill : Height, Weight, BMI Height: 5'3.00" Weight: 180lbs. oz. 81.551030gs; 36.00 BMI Method:Stated General Appearance: WD/WN, no apparent distress HEENT: PERRL/EOMI Neck: full range of motion Cardiovascular: normal peripheral pulses, regular rate, rhythm, no edema Respiratory: lungs clear, normal breath sounds Gastrointestinal: normal bowel sounds, soft, tenderness (suprapubic cramping) Genital/Rectal: normal genital exam, normal vaginal exam Pelvic: normal external exam, normal adnexa, no cerv. motion tender, discharge (Watery discharge, minimal), other (Cervical os is closed) Back: normal inspection, no CVA tenderness Extremities: normal range of motion, no pedal edema Neurologic/Psychiatric: alert, normal mood/affect, oriented x 3 Skin: normal color Progress/Results/Core Measures Suspected Sepsis SIRS Temperature: Pulse: Respiratory Rate: Laboratory Tests 09/14/22 21:50: White Blood Count 10.1 Blood Pressure / Mean: Laboratory Tests 09/14/22 21:50: Creatinine 0.56L, Platelet Count 270, Total Bilirubin 0.3 Results/Orders Lab Results Laboratory Tests Test 09/14/22 21:50 09/14/22 22:29 Range/Units White Blood Count 10.1 4.3-11.0 10^3/uL Red Blood Count 3.82 3.80-5.11 10^6/uL Hemoglobin 12.1 11.5-16.0 g/dL Hematocrit 35 35-52 % Mean Corpuscular Volume 90 80-99 fL Mean Corpuscular Hemoglobin 32 25-34 pg Mean Corpuscular Hemoglobin Concent 35 32-36 g/dL Red Cell Distribution Width 12.2 10.0-14.5 % Platelet Count 270 130-400 10^3/uL Mean Platelet Volume 10.1 9.0-12.2 fL Immature Granulocyte % (Auto) 1 % Neutrophils (%) (Auto) 75 42-75 % Lymphocytes (%) (Auto) 19 12-44 % Monocytes (%) (Auto) 6 0-12 % Eosinophils (%) (Auto) 0 0-10 % Basophils (%) (Auto) 0 0-10 % Neutrophils # (Auto) 7.5 1.8-7.8 10^3/uL Lymphocytes # (Auto) 1.9 1.0-4.0 10^3/uL Monocytes # (Auto) 0.6 0.0-1.0 10^3/uL Eosinophils # (Auto) 0.0 0.0-0.3 10^3/uL Basophils # (Auto) 0.0 0.0-0.1 10^3/uL Immature Granulocyte # (Auto) 0.1 0.0-0.1 10^3/uL Sodium Level 138 135-145 MMOL/L Potassium Level 3.6 3.6-5.0 MMOL/L Chloride Level 109 H 98-107 MMOL/L Carbon Dioxide Level 19 L 21-32 MMOL/L Anion Gap 10 5-14 MMOL/L Blood Urea Nitrogen 6 L 7-18 MG/DL Creatinine 0.56 L 0.60-1.30 MG/DL Estimat Glomerular Filtration Rate 132 BUN/Creatinine Ratio 11 Glucose Level 90 70-105 MG/DL Calcium Level 9.1 8.5-10.1 MG/DL Corrected Calcium 9.4 8.5-10.1 MG/DL Magnesium Level 1.8 1.6-2.4 MG/DL Total Bilirubin 0.3 0.1-1.0 MG/DL Aspartate Amino Transf (AST/SGOT) 19 5-34 U/L Alanine Aminotransferase (ALT/SGPT) 41 0-55 U/L Alkaline Phosphatase 46 40-136 U/L Total Protein 6.6 6.4-8.2 GM/DL Albumin 3.6 3.2-4.5 GM/DL Human Chorionic Gonadotropin, Quant 57641 H <5 MIU/ML Urine Color YELLOW Urine Clarity CLEAR Urine pH 7.0 5-9 Urine Specific Hazel 1.015 L 1.016-1.022 Urine Protein NEGATIVE NEGATIVE Urine Glucose (UA) NEGATIVE NEGATIVE Urine Ketones NEGATIVE NEGATIVE Urine Nitrite NEGATIVE NEGATIVE Urine Bilirubin NEGATIVE NEGATIVE Urine Urobilinogen 0.2 < = 1.0 MG/DL Urine Leukocyte Esterase NEGATIVE NEGATIVE Urine RBC (Auto) NEGATIVE NEGATIVE Urine RBC NONE /HPF Urine WBC 0-2 /HPF Urine Squamous Epithelial Cells 0-2 /HPF Urine Crystals NONE /LPF Urine Calcium Oxalate Crystals mottle lay up operator /LPF Urine Bacteria NEGATIVE /HPF Urine Casts NONE /LPF Urine Mucus NEGATIVE /LPF Urine Culture Indicated NO My Orders Orders - GIOVANNA GRADY MD Cbc With Automated Diff (09/14/22 21:26) Comprehensive Metabolic Panel (09/14/22 21:26) Hcg,Quantitative (09/14/22 21:26) Magnesium (09/14/22 21:26) Ua Culture If Indicated (09/14/22 21:26) Vital Signs/I&O 09/14/22 21:18 Temp 36.9 Pulse 73 Resp 20 B/P (MAP) 124/70 (88) Pulse Ox 99 O2 Delivery Room Air Capillary Refill : Progress Note : Progress Note 1. CRAMPING/ : 1st Trimester: - CBC. CMP: unremarkable - UA is normal - Discussed with pt's OB, recommended amniotic fluid swab which we did in the ER, and it was negative. OB clinic follow up for ultrasound - Follow up with OB HANSA, call OB clinic in the morning . -Adequate hydration advised -The patient was seen in the ED, and treated appropriately to presentation at a specific point in time. Patient is informed that there is a possibility that disease and illness can evolve and change in acuity rapidly or slowly after patient is discharged from the ER. Precautionary advice given to the patient for immediate return to ER if symptoms worsen or do not resolve, and to seek emergency care sooner rather than later. Pt also advised on the importance of PCP follow up and compliance with management and follow up plan with PCP and/or specialist, as this is part of the management plan. Pt verbally expressed understanding. Departure Communication (Admissions) Time/Spoke to Consulting Phy: 23:[address] Gould who is patient's OB physician. Recommended amniotic fluid swab test, which was negative. Will call patient tomorrow and have patient come into clinic for ultrasound. Impression Primary Impression: Abdominal cramping affecting Disposition: HOME, SELF-CARE Condition: Stable Departure-Patient Inst. Referrals: LEON GOULD MD (PCP/Family) Primary Care Physician Patient Instructions: Stomach Pain Later in , Taking in Enough Fluids While You Are Add. Discharge Instructions: - Follow up with OB HANSA, call OB clinic in the morning . -Adequate hydration advised -Return to ER if symptoms worsen All discharge instructions reviewed with patient and/or family. Voiced understanding. GIOVANNA GRADY MD Sep 14, 2022 21:25
[2022-09-14 22:00] LABS: BASOPHILS % (AUTO) 0 % (0-10); EOSINOPHILS % (AUTO) 0 % (0-10); HEMATOCRIT 35 % (35-52); HEMOGLOBIN 12.1 g/dL (11.5-16.0); LYMPHOCYTES # (AUTO) 1.9 10^3/uL (1.0-4.0); LYMPHOCYTES % (AUTO) 19 % (12-44); MEAN CORPUSCULAR HEMOGLOBIN 32 pg (25-34); MEAN CORPUSCULAR HGB CONC 35 g/dL (32-36); MEAN CORPUSCULAR VOLUME 90 fL (80-99); MEAN PLATELET VOLUME 10.1 fL (9.0-12.2); MONOCYTES # (AUTO) 0.6 10^3/uL (0.0-1.0); MONOCYTES % (AUTO) 6 % (0-12); NEUTROPHILS # (AUTO) 7.5 10^3/uL (1.8-7.8); NEUTROPHILS % (AUTO) 75 % (42-75); PLATELET COUNT 270 10^3/uL (130-400); WHITE BLOOD COUNT 10.1 10^3/uL (4.3-11.0)
[2022-09-14 22:09] LABS: ALBUMIN 3.6 GM/DL (3.2-4.5)
[2022-09-14 22:10] LABS: POTASSIUM 3.6 MMOL/L (3.6-5.0)
[2022-09-14 22:11] LABS: CALCIUM 9.1 MG/DL (8.5-10.1)
[2022-09-14 22:12] LABS: TOTAL PROTEIN 6.6 GM/DL (6.4-8.2)
[2022-09-14 22:14] LABS: BILIRUBIN,TOTAL 0.3 MG/DL (0.1-1.0)
[2022-09-14 22:16] LABS: CREATININE SERUM 0.56 MG/DL (0.60-1.30)
[2022-09-14 22:18] LABS: MAGNESIUM 1.8 MG/DL (1.6-2.4)
[2022-09-14 22:35] LABS: BILIRUBIN,URINE NEGATIVE (NEGATIVE); CLARITY,URINE CLEAR; COLOR,URINE YELLOW; GLUCOSE, URINE (UA) NEGATIVE (NEGATIVE); KETONES,URINE NEGATIVE (NEGATIVE); LEUKOCYTE ESTERASE ,URINE NEGATIVE (NEGATIVE); NITRITE,URINE NEGATIVE (NEGATIVE); PROTEIN,URINE NEGATIVE (NEGATIVE)
[2022-09-14 22:48] LABS: BACTERIA,URINE NEGATIVE /HPF; WBC,URINE 0-2 /HPF
[2022-09-14 22:51] LABS: SQUAMOUS EPITHELIAL CELL,UR 0-2 /HPF
== END 2022-09-15 00:06 | disposition home or self-care (01) ==
LOC: EDUNIT# 21:02 → ER 21:05
DX: O26.892 Other specified pregnancy related conditions, second trimester (principal); R10.30 Lower abdominal pain, unspecified; Z90.49 Acquired absence of other specified parts of digestive tract; Z28.310 Unvaccinated for COVID-19; Z3A.17 17 weeks gestation of pregnancy
CPT/HCPCS: 36415; 80053; 81000; 83735; 84702; 84703; 85025; 99284

== ENCOUNTER 2022-10-30 18:42 | Observation (INO) | payer MEDICAID ==
[~2022-10-30] VITALS: Ht 160 cm; Wt 88.9 kg
[2022-10-30] MEDS ORDERED: ASPIRIN 81 MG CHEW (CHILDREN'S ASA) PO ONE (19:00)
[2022-10-30] MEDS ORDERED: morphine INJ 10 MG/ML 1ML (SYR OR VIAL) IVP STA (19:08)
--- NOTE | 2022-10-30 19:16 | ED Chest Pain ---
General Chief Complaint: Chest Pain Stated Complaint: CHEST PAIN Nursing Triage Note: PT SENT BY [facility] FOR C/O CHEST PAIN THAT RADIATES DOWN RIGHT ARM THAT BEGAN LAST NOC AROUND 1700. PT ALSO REPORTS BLURRED VISION. PT IS 24WEEKS , . HAS HX OF PRE-ECLAMPSIA. Source: patient History of Present Illness Date Seen by Provider: Oct 30, 2022 Time Seen by Provider: 18:57 Initial Comments PT ARRIVES VIA POV FROM [facility] C/O CHEST PAIN SINCE YESTERDAY AFTERNOON PAIN IS IN LEFT UPPER CHEST. NO RADIATION OF PAIN RATES PAIN 8/10 NOW. PAIN COMES AND GOES, NOTHING WORSENS OR IMPROVES PAIN, TOOK TYLENOL 2 HOURS AGO, NO RELIEF + SHORTNESS OF BREATH DENIES SWEATS DENIES NAUSEA/VOMITING OR ABDOMINAL PAIN STATES SHE FEELS DIZZY AND HER VISION IS BLURRY HAS OCCASIONAL SWELLING IN FEET/LEGS, NOT NOW. NO PAIN WITH BREATHING NO HEADACHE NO PARESTHESIAS OR MOTOR DEFICITS NO COUGH OR URI SYMPTOMS OR FEVER OR RECENT ILLNESS NO HISTORY OF SIMILAR PT IS 24 WEEKS . NO PROBLEMS WITH THIS SHE IS AB 0. SHE HAS PRE-ECLAMPSIA WITH FIRST . NO PROBLEMS SO FAR WITH THIS SHE HAD A ROUTINE VISIT WITH DR. GOULD YESTERDAY. SHE WAS NOT HAVING THIS PAIN AT THAT TIME. NO VAGINAL BLEEDING OR ABDOMINAL CRAMPING OR PAIN SHE DENIES ANY MEDICAL PROBLEMS OTHERWISE PCP: DR. GOULD AT [facility] Allergies and Home Medications Allergies Coded Allergies: No Known Drug Allergies (Unverified , 11/17/08) Patient Home Medication List Home Medication List Reviewed: Yes Aspirin (Aspirin EC) 81 Mg Tablet.dr, 81 MG PO DAILY Prescribed by: ANA MARIA TEJADA on 10/31/22 1451 Vit/Iron Fumarate/FA ( Tablet) 27 Mg Iron-800 Mcg Tablet, 1 EACH PO DAILY, (Reported) Entered as Reported by: BRENT KEENAN on 10/31/22 1134 Last Action: Reviewed Discontinued Medications Cefdinir (Cefdinir) 300 Mg Capsule, 300 MG PO BID Discontinued Reason: No Longer Taking Prescribed by: NIKUNJ SANTANA on 05/15/22 1036 Last Action: Discontinued Metoclopramide HCl (Reglan) 10 Mg Tablet, 10 MG PO Q6H PRN for NAUSEA/VOMITING Discontinued Reason: No Longer Taking Prescribed by: NIKUNJ SANTANA on 05/15/22 1036 Last Action: Discontinued Metronidazole (Metronidazole) 500 Mg Tablet, 500 MG PO BID Discontinued Reason: No Longer Taking Prescribed by: OSBALDO BILLS on 06/18/221913 Last Action: Discontinued Review of Systems Review of Systems Constitutional: see HPI, dizziness EENTM: See HPI, Blurred Vision Respiratory: See HPI, Shortness of Air Cardiovascular: See HPI, Chest Pain, Irregular Heart Rate, Lightheadedness; Denies Palpitations, Denies Syncope Gastrointestinal: See HPI; Denies Abdominal Pain Genitourinary: No Symptoms Reported Musculoskeletal: no symptoms reported; No back pain Skin: no symptoms reported Psychiatric/Neurological: No Symptoms Reported; Denies Headache Endocrine: No Symptoms Reported Hematologic/Lymphatic: No Symptoms Reported Past Wpunjuq-U[place]-Lnwwnt Hx Patient Social History Tobacco Use?: No Substance use?: No Alcohol Use?: No Pt feels they are or have been: No Immunizations Up To Date Tetanus Booster (TDap): Less than 5yrs PED Vaccines UTD: Yes Influenza Vaccine Up-to-Date: No; Not Current First/Initial COVID19 Vaccinat: 2020 Second COVID19 Vaccination Neptali: 2020 Third COVID19 Vaccination Date: denies Seasonal Allergies Seasonal Allergies: No Past Medical History Surgery/Hospitalization HX: TONSILS, SAMIR DENIES MEDICAL HISTORY Surgeries: Yes (SAMIR 05/26/[address] HDZ) Adenoidectomy, Gallbladder, Tonsillectomy Respiratory: Yes Asthma Cardiac: No Neurological: No : Yes Expected Date of Delivery: Feb 17, 2023 Reproductive Disorders: No Female Reproductive Disorders: Denies Sexually Transmitted Disease: Yes (CHLAMYDIA IN AUGUST- TREATED) HIV/AIDS: No Genitourinary: Yes (RIGHT URETERAL STONE 07/2021-NO INTERVENTION) Kidney Stones Gastrointestinal: Yes Ulcer Musculoskeletal: No Endocrine: No HEENT: No Cancer: No Psychosocial: No Integumentary: No Blood Disorders: No Adverse Reaction/Blood Tranf: No Family Medical History FH: hyperlipidemia (MOTHER) FHx: asthma (SIBLING) Cancer, Diabetes, Hypertension, Other Conditions/Hx Physical Exam Vital Signs Vital Signs - First Documented 10/30/22 18:50 Temp 35.8 Pulse 81 Resp 21 B/P (MAP) 121/78 (92) Pulse Ox 97 O2 Delivery Room Air Capillary Refill : Less Than 3 Seconds Height, Weight, BMI Height: 5'3.00" Weight: 180lbs. oz. 81.293535wz; 35.00 BMI Method:Stated General Appearance: No Apparent Distress, WD/WN HEENT: PERRL/EOMI, Normal ENT Inspection Neck: Full Range of Motion, Normal Inspection, Non Tender, Supple; No Carotid Bruit, No JVD Respiratory: Chest Non Tender, Normal Breath Sounds, No Accessory Muscle Use, No Respiratory Distress Cardiovascular: Regular Rate, Rhythm, No Edema, No JVD, No Murmur, Normal Peripheral Pulses Gastrointestinal: Non Tender, Soft, Other (GRAVID UTERUS, 2-3 FB'S ABOVE UM BILICUS, WITH ACTIVE MOVEMENT NOTED ON EXAM. FHR 150'S. ABDOMEN IS NON- TENDER. ) Extremity: Normal Capillary Refill, Normal Inspection, Normal Range of Motion, Non Tender, No Calf Tenderness, No Pedal Edema Neurologic/Psychiatric: Alert, Oriented x3, No Motor/Sensory Deficits, Normal Mood/Affect, hotel manager II-XII Norm as Tested Skin: Normal Color (), Cool, Damp Progress/Results/Core Measures Results/Orders Lab Results Laboratory Tests Test 10/30/22 19:07 10/30/22 19:25 10/30/22 19:30 Range/Units White Blood Count 10.1 4.3-11.0 10^3/uL Red Blood Count 3.89 3.80-5.11 10^6/uL Hemoglobin 12.6 11.5-16.0 g/dL Hematocrit 36 35-52 % Mean Corpuscular Volume 93 80-99 fL Mean Corpuscular Hemoglobin 32 25-34 pg Mean Corpuscular Hemoglobin Concent 35 32-36 g/dL Red Cell Distribution Width 13.0 10.0-14.5 % Platelet Count 306 130-400 10^3/uL Mean Platelet Volume 10.8 9.0-12.2 fL Immature Granulocyte % (Auto) 1 % Neutrophils (%) (Auto) 80 H 42-75 % Lymphocytes (%) (Auto) 13 12-44 % Monocytes (%) (Auto) 6 0-12 % Eosinophils (%) (Auto) 0 0-10 % Basophils (%) (Auto) 0 0-10 % Neutrophils # (Auto) 8.1 H 1.8-7.8 10^3/uL Lymphocytes # (Auto) 1.4 1.0-4.0 10^3/uL Monocytes # (Auto) 0.6 0.0-1.0 10^3/uL Eosinophils # (Auto) 0.0 0.0-0.3 10^3/uL Basophils # (Auto) 0.0 0.0-0.1 10^3/uL Immature Granulocyte # (Auto) 0.1 0.0-0.1 10^3/uL Prothrombin Time 11.8 L 12.2-14.7 SEC INR Comment 0.9 0.8-1.4 Activated Partial Thromboplast Time 26 24-35 SEC D-Dimer 3.07 H 0.00-0.49 UG/ML Sodium Level 138 135-145 MMOL/L Potassium Level 3.5 L 3.6-5.0 MMOL/L Chloride Level 108 H 98-107 MMOL/L Carbon Dioxide Level 20 L 21-32 MMOL/L Anion Gap 10 5-14 MMOL/L Blood Urea Nitrogen 4 L 7-18 MG/DL Creatinine 0.56 L 0.60-1.30 MG/DL Estimat Glomerular Filtration Rate 132 BUN/Creatinine Ratio 7 Glucose Level 112 H 70-105 MG/DL Calcium Level 10.0 8.5-10.1 MG/DL Corrected Calcium 10.2 H 8.5-10.1 MG/DL Magnesium Level 1.7 1.6-2.4 MG/DL Total Bilirubin 0.5 0.1-1.0 MG/DL Aspartate Amino Transf (AST/SGOT) 13 5-34 U/L Alanine Aminotransferase (ALT/SGPT) 14 0-55 U/L Alkaline Phosphatase 62 40-136 U/L Total Creatine Kinase 46 29-168 U/L Creatine Kinase MB 0.6 <6.6 NG/ML Myoglobin 11.7 10.0-92.0 NG/ML Troponin I < 0.028 <0.028 NG/ML B-Type Natriuretic Peptide < 10.0 <100.0 PG/ML Total Protein 7.2 6.4-8.2 GM/DL Albumin 3.8 3.2-4.5 GM/DL Amylase Level 70 25-125 U/L Lipase 25 8-78 U/L Influenza Type A (RT-PCR) Not Detected Not Detecte Influenza Type B (RT-PCR) Not Detected Not Detecte SARS-CoV-2 RNA (RT-PCR) Not Detected Not Detecte Urine Color YELLOW Urine Clarity CLEAR Urine pH 6.0 5-9 Urine Specific Campbell <=1.005 1.016-1.022 Urine Protein NEGATIVE NEGATIVE Urine Glucose (UA) NEGATIVE NEGATIVE Urine Ketones NEGATIVE NEGATIVE Urine Nitrite NEGATIVE NEGATIVE Urine Bilirubin NEGATIVE NEGATIVE Urine Urobilinogen 1.0 < = 1.0 MG/DL Urine Leukocyte Esterase NEGATIVE NEGATIVE Urine RBC (Auto) NEGATIVE NEGATIVE Urine RBC NONE /HPF Urine WBC 0-2 /HPF Urine Squamous Epithelial Cells 25-50 H /HPF Urine Crystals PRESENT H /LPF Urine Amorphous Sediment FEW ALIREZA URATES H /LPF Urine Bacteria TRACE /HPF Urine Casts NONE /LPF Urine Mucus SMALL H /LPF Urine Culture Indicated NO My Orders Orders - GENI HO DO Ekg Tracing (10/30/22 18:55) Ed Iv/Invasive Line Start (10/30/22 18:59) O2 (10/30/22 18:59) Monitor-Rhythm Ecg Trace Only (10/30/22 18:59) Amylase (10/30/22 18:59) Bnp Harish (10/30/22 18:59) Cbc With Automated Diff (10/30/22 18:59) Comprehensive Metabolic Panel (10/30/22 18:59) Creatine Kinase (10/30/22 18:59) Creatine Kinase Mb (10/30/22 18:59) Fibrin Degradation Products (10/30/22 18:59) Lipase (10/30/22 18:59) Magnesium (10/30/22 18:59) Protime With Inr (10/30/22 18:59) Partial Thromboplastin Time (10/30/22 18:59) Ua Culture If Indicated (10/30/22 18:59) Myoglobin Serum (10/30/22 18:59) Troponin I [place] (10/30/22 18:59) Chest 1 View, Ap/Pa Only (10/30/22 18:59) Aspirin Chewable Tablet (Baby Aspirin Ch (10/30/22 19:00) Heart Tones (10/30/22 19:08) Morphine Injection (Morphine Injection (10/30/22 19:08) Covid 19 Inhouse Test (10/30/22 19:10) Influenza A And B By Pcr (10/30/22 19:10) Morphine Injection (Morphine Injection (10/30/22 19:22) Enoxaparin Injection (Lovenox Injection) (10/30/22 20:15) Medications Given in ED Vital Signs/I&O 10/30/22 10/30/22 18:50 20:48 Temp 35.8 Pulse 81 72 Resp 21 20 B/P (MAP) 121/78 (92) 119/72 Pulse Ox 97 98 O2 Delivery Room Air Room Air Blood Pressure Mean: 92 Progress Progress Note : Progress Note GIVEN : -ASPIRIN -MORPHINE -LOVENOX NO TACHYCARDIA, NO HYPOTENSION OR HYPERTENSION, NO HYPOXIA, NO TACHYPNEA OR DYSPNEA. NO FEVER PAIN IMPROVED WITH MORPHINE NO DETERIORATION IN PT'S CONDITION DURING ER STAY WILL ADMIT FOR OBSERVATION, DO SERIAL TROPONINS AND EKG'S, TREAT WITH LOVENOX AND ASPIRIN, AND OBTAIN V/Q SCAN IN AM. Initial ECG Impression Date: Oct 30, 2022 Initial ECG Impression Time: 19:06 Initial ECG Rate: 81 Initial ECG Rhythm: Normal Sinus Initial ECG Intervals: Normal Initial ECG Impression: Normal Initial ECG Comparisson: No Previous ECG Available Comment INTERPRETED BY ME Diagnostic Imaging Comments CXR--PER RADIOLOGIST REPORT AT 1935 Findings: No focal airspace disease in the visualized lungs. No pleural effusion or pneumothorax. Normal cardiomediastinal silhouette. Impression: 1. No acute cardiopulmonary process by portable radiography. Reviewed: Reviewed by Me Departure Communication (Admissions) 1958--CALLED DR. GOULD, MESSAGE LEFT ON CELL PHONE 1999--SPOKE WITH DR. TEJADA, OB SUTURE WINDER HAND FOR [facility]. ACCEPTS PT FOR ADMIT. 2009--DR. GOULD CALLED BACK AND IS AGREEABLE TO PLAN Impression Primary Impression: Chest pain Additional Impressions: Dyspnea Elevated d-dimer 24 weeks gestation of Disposition: ADMITTED INPATIENT Condition: Improved Admissions Decision to Admit Reason: Admit from ER (General) Decision to Admit/Date: Oct 30, 2022 Time/Decision to Admit Time: 20:00 Departure-Patient Inst. Referrals: LEON GOULD MD (PCP/Family) Primary Care Physician Scripts Aspirin (Aspirin EC) 81 Mg Tablet. 81 MG PO DAILY, #90 TAB 1 Refill Prov: ANA MARIA TEJADA MD 10/31/22 GENI HO DO Oct 30, 2022 19:15
[2022-10-30 19:18] LABS: BASOPHILS % (AUTO) 0 % (0-10); EOSINOPHILS % (AUTO) 0 % (0-10); HEMATOCRIT 36 % (35-52); HEMOGLOBIN 12.6 g/dL (11.5-16.0); LYMPHOCYTES # (AUTO) 1.4 10^3/uL (1.0-4.0); LYMPHOCYTES % (AUTO) 13 % (12-44); MEAN CORPUSCULAR HEMOGLOBIN 32 pg (25-34); MEAN CORPUSCULAR HGB CONC 35 g/dL (32-36); MEAN CORPUSCULAR VOLUME 93 fL (80-99); MEAN PLATELET VOLUME 10.8 fL (9.0-12.2); MONOCYTES # (AUTO) 0.6 10^3/uL (0.0-1.0); MONOCYTES % (AUTO) 6 % (0-12); NEUTROPHILS # (AUTO) 8.1 10^3/uL (1.8-7.8); NEUTROPHILS % (AUTO) 80 % (42-75); PLATELET COUNT 306 10^3/uL (130-400); WHITE BLOOD COUNT 10.1 10^3/uL (4.3-11.0)
[2022-10-30] MEDS ORDERED: morphine INJ 4 MG/ML 1 ML (VIAL/SYRINGE) ONE (19:22)
[2022-10-30 19:24] LABS: ALBUMIN 3.8 GM/DL (3.2-4.5); CHLORIDE 108 MMOL/L (98-107); POTASSIUM 3.5 MMOL/L (3.6-5.0); SODIUM 138 MMOL/L (135-145)
[2022-10-30 19:25] LABS: INR 0.9 (0.8-1.4); PROTHROMBIN TIME PATIENT 11.8 SEC (12.2-14.7)
[2022-10-30 19:26] LABS: AMYLASE 70 U/L (25-125)
[2022-10-30 19:27] LABS: GLUCOSE 112 MG/DL (70-105); TOTAL PROTEIN 7.2 GM/DL (6.4-8.2)
[2022-10-30 19:28] LABS: CARBON DIOXIDE 20 MMOL/L (21-32); FIBRIN DEGRADATION PRODUCTS 3.07 UG/ML (0.00-0.49)
[2022-10-30 19:29] LABS: BILIRUBIN,TOTAL 0.5 MG/DL (0.1-1.0)
--- NOTE | 2022-10-30 19:29 | Diagnostic Imaging Report ---
CHEST 1 VIEW, AP/PA ONLY Indication: Chest pain. Comparison: 05/13/2022 Findings: No focal airspace disease in the visualized lungs. No pleural effusion or pneumothorax. Normal cardiomediastinal silhouette. Impression: 1. No acute cardiopulmonary process by portable radiography. Dictated by: Dictated on workstation # [id number]
[2022-10-30 19:30] LABS: ALKALINE PHOSPHATASE 62 U/L (40-136); CREATININE SERUM 0.56 MG/DL (0.60-1.30); GFR ESTIMATED 132
[2022-10-30 19:31] LABS: BUN/CREATININE RATIO 7
[2022-10-30 19:33] LABS: ALANINE AMINOTRANSFERASE 14 U/L (0-55); MAGNESIUM 1.7 MG/DL (1.6-2.4)
[2022-10-30 19:34] LABS: LIPASE 25 U/L (8-78)
[2022-10-30 19:35] LABS: CREATINE KINASE 46 U/L (29-168)
[2022-10-30 19:38] LABS: BILIRUBIN,URINE NEGATIVE (NEGATIVE); CLARITY,URINE CLEAR; COLOR,URINE YELLOW; GLUCOSE, URINE (UA) NEGATIVE (NEGATIVE); KETONES,URINE NEGATIVE (NEGATIVE); LEUKOCYTE ESTERASE ,URINE NEGATIVE (NEGATIVE); NITRITE,URINE NEGATIVE (NEGATIVE); PROTEIN,URINE NEGATIVE (NEGATIVE)
[2022-10-30 19:42] LABS: CREATINE KINASE MB 0.6 NG/ML (<6.6)
[2022-10-30 19:47] LABS: AMORPHOUS SEDIMENT,UR FEW AMOR URATES /LPF; BACTERIA,URINE TRACE /HPF; SQUAMOUS EPITHELIAL CELL,UR 25-50 /HPF; WBC,URINE 0-2 /HPF
[2022-10-30] MEDS ORDERED: ENOXAPARIN 100 MG/1 ML (LOVENOX) SYR SC ONE (20:15)
[2022-10-30 21:40] VITALS: BP 112/74
[2022-10-30 21:52] VITALS: BP 107/71
[2022-10-30 22:07] VITALS: BP 114/68
[2022-10-30 22:37] VITALS: BP 104/86
[2022-10-30] MEDS ORDERED: ONDANSETRON 4 MG/2 ML (SDV) Z0FRAN IV PRN (22:45)
[2022-10-30] MEDS: morphine INJ 4 MG/ML 1 ML (VIAL/SYRINGE) IV PRN (22:56)
[2022-10-30 23:41] VITALS: BP 102/68
[2022-10-31 00:56] VITALS: BP 98/62
[2022-10-31 02:00] VITALS: BP 104/67
[2022-10-31 03:14] VITALS: BP 103/65
[2022-10-31] MEDS ORDERED: CATHETER FLUSH 10 ML SYR IVP SCH (06:00)
--- NOTE | 2022-10-31 07:54 | History & Physical ---
HPI History of Present Illness: 21-year-old presents to emergency department from [facility] after evaluation for chest pain. She reports pain in the left upper chest and fairly intense upon presentation. Apparently the pain does wax and wane. She does have some shortness of breath.. She took Tylenol prior to going to the emergency room without any improved pain relief. She has no reports of diarrhea, vomiting or abdominal pain. She was seen the day prior to presentation by Dr. Sharp and apparently had normal visit. The fetus is moving normally today. Source: patient Exam Limitations: no limitations Date seen by provider: Oct 31, 2022 Time Seen by Provider: 07:00 Attending Physician Romina Sharp MD PCP Admitting Physician: Kam Jung MD Attending Physician: Romina Sharp MD Consult Date of Admission Oct 30, 2022 at 21:00 Home Medications Home Medications Reviewed patient Home Medication Reconciliation performed by pharmacy medication reconciliations data entry technician and/or nursing. Patients Allergies have been reviewed. Allergies Coded Allergies: No Known Drug Allergies (Unverified , 11/17/08) FFG-Whcygu-Wboedg Hx Patient Social History Number of Children: 1 Smoking Status: Never a Smoker 2nd Hand Smoke Exposure: No Recent Hopitalizations: No Alcohol Use?: No Have you traveled recently?: No Immunizations Up To Date Tetanus Booster (TDap): Less than 5yrs Influenza Vaccine Up-to-Date: No; Not Current First/Initial COVID19 Vaccinat: 2020 Second COVID19 Vaccination Neptali: 2020 Third COVID19 Vaccination Date: denies Past Medical History PMHx: Denies SurgHx: Tonsillectomy Family Medical History Significant Family History: Cancer, Diabetes, Hypertension, Other Conditions/Hx Family History: FH: hyperlipidemia (MOTHER) FHx: asthma (SIBLING) Review of Systems (CHC) Constitutional: see HPI Reviewed Test Results Reviewed Test Results Radiology [facility] [place], [place] NAME: APRIL GORDON MED REC#: [id number] PT STATUS: REG ER : 1999 PHYSICIAN: GENI HO DO ADMIT DATE: 10/30/22/ER Signed Date of Exam:10/30/22 CHEST 1 VIEW, AP/PA ONLY CHEST 1 VIEW, AP/PA ONLY Indication: Chest pain. Comparison: 05/13/2022 Findings: No focal airspace disease in the visualized lungs. No pleural effusion or pneumothorax. Normal cardiomediastinal silhouette. Impression: 1. No acute cardiopulmonary process by portable radiography. Dictated by: Dictated on workstation # [id number] Dict: 10/30/221926 Trans: 10/30/221927 [facility] [id number] Interpreted by: ANGEL BRYANT MD Electronically signed by: ANGEL BRYANT MD 10/30/221927 Physical Exam-([facility]) Physical Exam Vital Signs Capillary Refill : Less Than 3 Seconds General Appearance: moderate distress (In the emergency department) Eyes: Bilateral Eye Normal Inspection Neck: supple Respiratory: lungs clear Cardiovascular: regular rate, rhythm Gastrointestinal: soft Assessment/Plan Assessment/Plan Admission Dx 1. Intense left upper chest painexclude PE 2. and second trimester 24 weeks Admission Status: Observation Reason for Inpatient Admission: Exclude pulmonary embolism Assessment & Plan 1. Intense left upper chest painexclude PE. She had positive d-dimer on admission -Emergency department has gave a dose of aspirin and has gave dose of Lovenox. -In the morning of October 31 she will have V/Q scan 2. and second trimester 24 weeks -normal Clinical Quality Measures AMI/AHF: ASA po Prior to arrival: KAM Golden MD Oct 31, 2022 07:54
[2022-10-31 08:55] VITALS: BP 102/54
[2022-10-31] MEDS ORDERED: ENOXAPARIN 100 MG/1 ML (LOVENOX) SYR SC SCH (09:00)
[2022-10-31] MEDS ORDERED: ASPIRIN E.C. 81 MG (ECOTRIN) TAB PO SCH (09:00)
[2022-10-31] MEDS ORDERED: PREN-37 PO (11:34)
[2022-10-31] MEDS: morphine INJ 4 MG/ML 1 ML (VIAL/SYRINGE) IV PRN (11:35)
[2022-10-31 12:07] VITALS: BP 123/59
--- NOTE | 2022-10-31 14:18 | Diagnostic Imaging Report ---
Indication: Chest pain and elevated D-dimer. Patient was administered 4.9 mCi technetium 99m MAA intravenously and imaging over the chest was performed at multiple obliquities. There is homogeneous perfusion of both lungs. No pleural-based perfusion defects are identified. IMPRESSION: Normal perfusion lung scan. Dictated by: Dictated on workstation # [id number]
[2022-10-31] MEDS ORDERED: ASPI-1238 PO (14:51)
--- NOTE | 2022-10-31 14:52 | Discharge Inst-Simple/Standard ---
Discharge Inst-Standard Reconcile Patient Problems Problems Reviewed?: Yes Discharge Medications New, Converted or Re-Newed RX: Transmitted to Pharmacy ([facility]) Patient Instructions/Follow Up Plan of Care/Instructions/FU: Dr Sharp within 1 week Activity as Tolerated: Yes Discharge Diet: Regular Diet Return to The Hospital For: Worsening chest pain or shortness of breath ANA MARIA TEJADA MD Oct 31, 2022 14:52
== END 2022-10-31 14:50 | disposition home or self-care (01) ==
LOC: EDUNIT# 18:42 → ER 18:44 → 4TH 21:00 → UNDOADMOB 21:00 → 4TH 21:31 → UNDODISOB 10-31 14:50
PROVIDERS: ADMIT Family Medicine; ATTEND Family Medicine
DX: O99.412 Diseases of the circulatory system complicating pregnancy, second trimester (principal); R07.89 Other chest pain; Z3A.24 24 weeks gestation of pregnancy
CPT/HCPCS: 71045; 78580; 80053; 81000; 82150; 82550; 82553; 83690; 83735; 83874; 83880; 84484 ×2; 85025; 85379; 85610; 85730; 87636; 93005; 93041; 96372; 96375; 96376; 99284; A9540; G0378; 36415

== ENCOUNTER → 2022-11-19 | Outpatient (CLI) | payer MEDICAID ==
[~2022-11-19] MED LIST changes: +ASPI-1238 PO
== END ==
LOC: CARD 13:50
PROVIDERS: ATTEND Family Medicine
DX: R07.89 Other chest pain (principal)
CPT/HCPCS: 93306

== ENCOUNTER 2022-12-03 13:32 | Outpatient (CLI) | payer MEDICAID ==
[~2022-12-03] VITALS: Ht 157 cm; Wt 89.0 kg
[2022-12-03 13:50] VITALS: BP 112/59
[2022-12-03] MEDS ORDERED: LACTATED RINGERS 1,000 ML IV SCH (14:00)
[2022-12-03 14:42] LABS: HEMATOCRIT 33 % (35-52); HEMOGLOBIN 11.5 g/dL (11.5-16.0); MEAN CORPUSCULAR HEMOGLOBIN 32 pg (25-34); MEAN CORPUSCULAR HGB CONC 35 g/dL (32-36); MEAN CORPUSCULAR VOLUME 92 fL (80-99); MEAN PLATELET VOLUME 10.7 fL (9.0-12.2); PLATELET COUNT 283 10^3/uL (130-400); WHITE BLOOD COUNT 7.7 10^3/uL (4.3-11.0)
[2022-12-03 14:48] LABS: ALBUMIN 3.4 GM/DL (3.2-4.5); POTASSIUM 3.2 MMOL/L (3.6-5.0)
[2022-12-03 14:49] LABS: CALCIUM 8.8 MG/DL (8.5-10.1)
[2022-12-03 14:51] LABS: TOTAL PROTEIN 6.6 GM/DL (6.4-8.2)
[2022-12-03 14:53] LABS: BILIRUBIN,TOTAL 0.6 MG/DL (0.1-1.0)
[2022-12-03 14:54] LABS: CREATININE SERUM 0.5 MG/DL (0.60-1.30)
[2022-12-03] MEDS ORDERED: KCL 20 MEQ TAB (K-DUR) PO NR (15:15)
[2022-12-03 16:01] VITALS: BP 112/59
[2022-12-03 16:30] VITALS: BP 112/59
--- NOTE | 2022-12-04 08:07 | Physician Query-Final Dx ---
LISA,12/04/22 0807: Clinic Account Progress/Dx Physician Query: Please give diagnosis Please include # weeks gestation Date of Service Dec 03, 2022 at 13:32 LEON GOULD MD 12/05/22 1346: Clinic Account Progress/Dx DIAGNOSIS: Diagnosis Gastroenteritis complicating 29 weeks gestation Third trimester LISA,JunDec 04, 2022 08:07 LEON GOULD MD Dec 05, 2022 13:46
== END 2022-12-03 16:30 | disposition home or self-care (01) ==
LOC: LDRP 13:32 → WSo 13:32
PROVIDERS: ATTEND Family Medicine
DX: Z34.80 Encounter for supervision of other normal pregnancy, unspecified trimester (principal); Z3A.00 Weeks of gestation of pregnancy not specified
CPT/HCPCS: 80053; 85027; 96360; G0463; 36415; 99213

== ENCOUNTER 2023-01-02 12:33 | Observation (INO) | payer MEDICAID ==
[2023-01-02 12:40] VITALS: BP 127/78
[2023-01-02] MEDS ORDERED: LACTATED RINGERS 1,000 ML IV SCH (12:45)
[2023-01-02] MEDS ORDERED: fentaNYL INJECTION 100 MCG/2 ML VIAL IVP ONE (13:00)
[2023-01-02] MEDS ORDERED: ONDANSETRON 4 MG/2 ML (SDV) Z0FRAN IVP ONE (13:00)
[2023-01-02] MEDS ORDERED: BETAMETHASONE Acetate/Na Phosphate 6 MG/ML INJ ONE (13:01)
[2023-01-02] MEDS ORDERED: ONDANSETRON 4 MG/2 ML (SDV) Z0FRAN ONE (13:14)
[2023-01-02] MEDS ORDERED: fentaNYL INJECTION 100 MCG/2 ML VIAL ONE (13:17)
[2023-01-02 13:21] LABS: BASOPHILS % (AUTO) 0 % (0-10); EOSINOPHILS % (AUTO) 0 % (0-10); HEMATOCRIT 32 % (35-52); HEMOGLOBIN 10.9 g/dL (11.5-16.0); LYMPHOCYTES # (AUTO) 0.8 10^3/uL (1.0-4.0); LYMPHOCYTES % (AUTO) 7 % (12-44); MEAN CORPUSCULAR HEMOGLOBIN 31 pg (25-34); MEAN CORPUSCULAR HGB CONC 35 g/dL (32-36); MEAN CORPUSCULAR VOLUME 91 fL (80-99); MEAN PLATELET VOLUME 10.8 fL (9.0-12.2); MONOCYTES # (AUTO) 0.4 10^3/uL (0.0-1.0); MONOCYTES % (AUTO) 4 % (0-12); NEUTROPHILS # (AUTO) 10.4 10^3/uL (1.8-7.8); NEUTROPHILS % (AUTO) 89 % (42-75); PLATELET COUNT 278 10^3/uL (130-400); WHITE BLOOD COUNT 11.8 10^3/uL (4.3-11.0)
[2023-01-02 13:37] LABS: ALBUMIN 3.4 GM/DL (3.2-4.5); BILIRUBIN,TOTAL 0.8 MG/DL (0.1-1.0); CALCIUM 9.1 MG/DL (8.5-10.1); CREATININE SERUM 0.6 MG/DL (0.60-1.30); POTASSIUM 3.5 MMOL/L (3.6-5.0); TOTAL PROTEIN 6.4 GM/DL (6.4-8.2)
--- NOTE | 2023-01-02 13:41 | History & Physical-OB ---
OB - Chief Complaint & HPI Date/Time Date of Admission: Date of Admission: Date seen by a Provider: Jan 02, 2023 Time Seen by a Provider: 12:35 Chief Complaint/History Hx : 2 Hx Para: 1 Expected Date of Delivery: Feb 17, 2023 Gestational Age in Weeks: 33 Gestational Age in Days: 3 Other reason for admission: at 33w3d presented to ER due to severe left sided abdominal pain. She said it started this morning, has progressively gotten worse. Pain is localized to left side only. Lasts for up to 15-30 minutes and then can get better for about the same amount of time, but every time it comes back it seems more severe. Has had vomiting of yellow bile looking substance without much nausea, denies vomiting blood. Denies chest pain, shortness of breath, fever, diarrhea, constipation or blood in stools. No vaginal bleeding or leaking fluid. Endorses movement. She denies any trauma, falling, being hit. She has a black left eye, states she walked into the wall at night going to the bathroom, denies hitting her abdomen. Admits she did fall down a few stairs going down from second floor apartment a month ago. Denies any injury accidental or from another person. History of Labs B negative, antibody negative, RI. HIV/HepB/HepC/RPR NR. GC/chlamydia neg. 1 hour glucola normal. Other complicated by initial 2 gestational sacs, no pole in one of the sacs at initial US, involuted by 17 weeks. Had low lying placenta on early ultrasound, on US 11/28/22 placenta was 2.2 cm from os and EFW was 97%. Additionally had preeclampsia in first , was started on aspirin for prevention in this but had excessive bruising and stopped. Also was seen earlier in around 24 weeks with left chest pain an darm pain, had negative EKG, negative troponin 3, normal BNP, elevated D dimer with negative V/Q scan and normal echocardiogram. She reported resolution of symptoms at 28 week visit, other than if she got angry, and complete resolution at the following visit. Allergies and Home Medications Allergies Coded Allergies: No Known Drug Allergies (Unverified , 11/17/08) Patient Home Medication List Home Medication List Reviewed: Yes Vit/Iron Fumarate/FA ( Tablet) 27 Mg Iron-800 Mcg Tablet, 1 EACH PO DAILY, (Reported) Entered as Reported by: BRENT KEENAN on 10/31/22 1134 OB - History Hx of Present Ultrasounds: Other (see HPI) Information Induced Hypertension: No Maternal Gestational Diabetes: No Hemorrhage: No Obstetrical History Hx : 2 Hx Para: 1 Hx # Term Pregnancies: 1 Hx # Pregnancies: 0 Number of Living Children: 1 Hx Termination: No Hx Multiple Gestation: Yes (2 gestational sacs in current , no pole in one) Hx Ectopic : No Hx Stillbirth: No Hx Complication: Yes Hx Induced Hypertens: Yes Hx Maternal Gestational Diabet: No Hx Hemorrhage: No Delivery History Hx Dystocia: No Hx Forceps Assisted Delivery: No Hx Vacuum Extraction Assisted: No Hx Placenta Abnormality: No Hx Distress: No Hx Large For Gestational Age I: No Hx Small for Gestational Age I: No Hx Section: No Hx Vaginal Delivery Post C-Sec: No Hx Blood Disorders: No Adverse Rxn to Tranfusion: No Risk Variables Obstetrical Risk Variables: POA Anemia; Not POA Asthma, Not POA Autoimmune Dise ase, Not POA Bariatric Surgery, Not POA Bleeding Disorder, Not POA BMI >= 40, Not POA Cardiac Disease, Not POA Economic Housing Instabil, Not POA Gastrointestinal Disease, Not POA Gestational Diabetes, Not POA HIV, Not POA Hypertension, Not POA Retirement Anticoagulant U, Not POA Mental Health Disorder, Not POA Multiple , Not POA Neuromuscular Disease, Not POA Obstetrical V TE, Not POA Other Preeclampsia, Not POA Placenta Previa, Not POA Placental Abruption, Not POA Placenta Accreta Spectrum, Not POA Preexisting Diabetes, Not POA , Not POA Previous , Not POA Pulmonary Hypertension, Not POA Renal Disease, Not POA Severe Preeclampsia, Not POA Substance Abuse, Not POA Thyrotoxicosis Patient Past Medical History PMHx: Denies SurgHx: Tonsillectomy Social History/Family History 2nd Hand Smoke Exposure: No Immunizations First/Initial COVID19 Vaccine: 2020 Second COVID19 Vaccination: 2020 Third COVID19 Vaccination Date: denies Hepatitis B: No Tetanus Booster (TDap): Less than 5yrs OB - Admission Exam Physical Exam HEENT: NCAT Lungs: Clear Abdomen: Other (localized ttp lateral mid left abdomen, no other tenderness over uterus at any location, no rigidity; marked ttp left flank, no tenderness over right flank) Extremities: Normal Cervical Dilatation: 2cm Effacement: 0% Station: -3 Membranes: Intact Heart Rate: 130's Decelerations: No Decelerations Short Term Variability: Present 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 Machine Operator Variability: Average (6-25) Labs Laboratory Tests Test 01/02/23 13:09 Range/Units White Blood Count 11.8 H 4.3-11.0 10^3/uL Red Blood Count 3.47 L 3.80-5.11 10^6/uL Hemoglobin 10.9 L 11.5-16.0 g/dL Hematocrit 32 L 35-52 % Mean Corpuscular Volume 91 80-99 fL Mean Corpuscular Hemoglobin 31 25-34 pg Mean Corpuscular Hemoglobin Concent 35 32-36 g/dL Red Cell Distribution Width 12.5 10.0-14.5 % Platelet Count 278 130-400 10^3/uL Mean Platelet Volume 10.8 9.0-12.2 fL Immature Granulocyte % (Auto) 1 % Neutrophils (%) (Auto) 89 H 42-75 % Lymphocytes (%) (Auto) 7 L 12-44 % Monocytes (%) (Auto) 4 0-12 % Eosinophils (%) (Auto) 0 0-10 % Basophils (%) (Auto) 0 0-10 % Neutrophils # (Auto) 10.4 H 1.8-7.8 10^3/uL Lymphocytes # (Auto) 0.8 L 1.0-4.0 10^3/uL Monocytes # (Auto) 0.4 0.0-1.0 10^3/uL Eosinophils # (Auto) 0.0 0.0-0.3 10^3/uL Basophils # (Auto) 0.0 0.0-0.1 10^3/uL Immature Granulocyte # (Auto) 0.1 0.0-0.1 10^3/uL OB - Assessment/Plan/Diagnosis Assessment Admission Dx Abdominal pain complicating 33 weeks gestation Admission Status: Other (Clinic) Plan Other Plan Severe left sided pain, differential including but not limited to placental abruption, labor, nephrolithiasis, pyelonephritis, chorioamnionitis. -Possible placental abruption- heart rate reassuring on admit, monitor cl osely, notified environmental journalist Fermenter Helper and Peds of concern for possible abruption in 33 week gestation. Check STAT US for placental eval and cervical length, urine drug screen, if heart tones become non-reassuring, likely to need emergent c- section, discussed with patient. -Chorio less likely with no fever and localized tenderness, check STAT cbc and continue close monitoring - labor rule out- cervix less than 3 cm dilated, check STAT US for cervical length. Has uterine irritability, will give LR bolus and initial dose of betamethasone. Cervical recheck same after one hour. Consider nifedipine if contractions persist or cervical length less than 3 cm on US. -Possible pyelonephritis- has had in past- afebrile, check labs and UA -Possible nephrolithasis- renal US, pain medication, strain urine -Possible trauma- concern for non-accidental trauma given bruising around eye and on arms, patient in private interview denies LEON GOULD MD Jan 02, 2023 13:41
[2023-01-02] MEDS: LACTATED RINGERS 1,000 ML IV SCH ×2 (13:48→20:02)
[2023-01-02 13:50] LABS: BAND NEUTROPHILS 0 %; BASOPHILS % (MANUAL) 0 %; EOSINOPHILS % (MANUAL) 0 %; LYMPHOCYTES % (MANUAL) 8 %; MONOCYTES % (MANUAL) 1 %; NEUTROPHILS % (MANUAL) 91 %; RBC MORPH NORMAL
[2023-01-02] MEDS ORDERED: fentaNYL INJECTION 100 MCG/2 ML VIAL IVP NR (14:00)
[2023-01-02 14:10] LABS: CLARITY,URINE CLOUDY; COLOR,URINE DARK YELLOW; PH,URINE 6.5 (5-9); PROTEIN,URINE 1+ (NEGATIVE)
[2023-01-02] MEDS: BETAMETHASONE Acetate/Na Phosphate 6 MG/ML INJ IM SCH (14:10)
[2023-01-02 14:11] LABS: GLUCOSE, URINE (UA) NEGATIVE (NEGATIVE)
[2023-01-02 14:12] LABS: BACTERIA,URINE NEGATIVE /HPF; BILIRUBIN,URINE NEGATIVE (NEGATIVE); KETONES,URINE 4+ (NEGATIVE); LEUKOCYTE ESTERASE ,URINE 2+ (NEGATIVE); NITRITE,URINE NEGATIVE (NEGATIVE); RBC,URINE 50-100 /HPF
[2023-01-02 14:19] LABS: AMPHETAMINE SCREEN, URINE NEGATIVE (NEGATIVE); BARBITURATE SCREEN URINE NEGATIVE (NEGATIVE); BENZODIAZEPINES SCREEN URINE NEGATIVE (NEGATIVE); CANNABINOID SCREEN, URINE NEGATIVE (NEGATIVE); COCAINE SCREEN URINE NEGATIVE (NEGATIVE); METHADONE STAT NEGATIVE (NEGATIVE); OPIATE SCREEN URINE NEGATIVE (NEGATIVE); OXYCODONE STAT NEGATIVE (NEGATIVE); PROPOXYPHENE STAT NEGATIVE (NEGATIVE); TRICYCLIC ANTIDEPRESSANTS SCRE NEGATIVE (NEGATIVE)
--- NOTE | 2023-01-02 14:31 | Diagnostic Imaging Report ---
US LIMITED [id number] INDICATION: Severe abdominal pain during . COMPARISON: None available. TECHNIQUE: Transabdominal and transvaginal sonographic imaging of the gravid uterus was performed. FINDINGS: There is a single live intrauterine in cephalic presentation. The cervix is closed and measures 4.01 cm in length. The placenta is along the right jamir-aspect of the uterus, and there are no sonographic features of placental abruption. There is maternal bilateral moderate hydronephrosis. No renal cortical thinning. The maternal adnexa are suboptimally evaluated due to advanced gestational age. IMPRESSION: 1. Cervix is closed and measures 4 cm in length. 2. Moderate bilateral maternal hydronephrosis. Dictated by: Dictated on workstation # [id number]
[2023-01-02 14:46] VITALS: BP 127/78
[2023-01-02] MEDS ORDERED: ONDANSETRON 4 MG/2 ML (SDV) Z0FRAN IVP PRN (15:00)
[2023-01-02 15:24] VITALS: BP 98/57
[2023-01-02] MEDS: fentaNYL INJECTION 100 MCG/2 ML VIAL IVP PRN ×2 (18:05→22:35)
[2023-01-02 23:00] VITALS: BP 95/53
[2023-01-03 02:00] VITALS: BP 95/53
[2023-01-03] MEDS: fentaNYL INJECTION 100 MCG/2 ML VIAL IVP PRN ×3 (02:39→12:37)
[2023-01-03] MEDS: LACTATED RINGERS 1,000 ML IV SCH ×2 (02:40→09:18)
[2023-01-03 06:25] VITALS: BP 100/53
[2023-01-03 07:40] VITALS: BP 113/59
--- NOTE | 2023-01-03 08:56 | Discharge Summary ---
Diagnosis/Chief Complaint Date of Admission Jan 02, 2023 at 15:00 Date of Discharge January 03, 2023 Admission Diagnosis Admission Diagnosis 1. Intrauterine at 33 weeks 2. Abdominal and flank pain severe 3. Hematuriasuspect urolithiasis left Discharge Diagnosis 1. Intrauterine at 33 weeks 2. Abdominal and flank pain severe 3. Hematuriasuspect urolithiasis left Discharge Summary-OBS Procedures None. Discharge Physical Examination Allergies: Coded Allergies: No Known Drug Allergies (Unverified , 11/17/08) Vitals & I&Os Intake and Output 01/03/23 00:00 Intake Total 1000 ml Output Total 800 ml Balance 200 ml Vital Sign - Last 12Hours Date Time Temp Pulse Resp B/P (MAP) Pulse Ox O2 Delivery O2 Flow Rate FiO2 01/03/23 07:40 36.4 74 14 113/59 (77) Room Air 01/02/23 14:46 99 General Appearance: Alert, Oriented X3, No Acute Distress Respiratory: Clear to Auscultation Cardiovascular: Regular Rate Hospital Course Was the Problem List Reviewed?: Yes patient was admitted during the late morning of January 03, 2023 for workup of the acute abdominal/pelvic/flank pain. She underwent ultrasound which revealed no placental abruption. She was noted to have maternal hydronephrosis. Urine analysis did have hematuria. She had received fentanyl for a total dose of 100 to control her pain. She did receive betamethasone at 2 PM on January 02, 2023 for lung maturity. In the morning of January 03, 2023 her abdominal pain had markedly improved. She had not had any pain medications over the past 6 hours. She seemed to have improved. The nurse air reported to me that there was particulates in her urine that was strained. Labs Laboratory Tests 01/02/23 13:09: White Blood Count 11.8H, Red Blood Count 3.47L, Hemoglobin 10.9L, Hematocrit 32L , Mean Corpuscular Volume 91, Mean Corpuscular Hemoglobin 31, Mean Corpuscular Hemoglobin Concent 35, Red Cell Distribution Width 12.5, Platelet Count 278, Mean Platelet Volume 10.8, Immature Granulocyte % (Auto) 1, Neutrophils (%) (Auto) 89H, Lymphocytes (%) (Auto) 7L, Monocytes (%) (Auto) 4, Eosinophils (%) (Auto) 0, Basophils (%) (Auto) 0, Neutrophils # (Auto) 10.4H, Lymphocytes # (Auto) 0.8L, Monocytes # (Auto) 0.4, Eosinophils # (Auto) 0.0, Basophils # (Auto) 0.0, Immature Granulocyte # (Auto) 0.1, Neutrophils % (Manual) 91, Lymphocytes % (Manual) 8, Monocytes % (Manual) 1, Eosinophils % (Manual) 0, Basophils % (Manual) 0, Band Neutrophils 0, Blood Morphology Comment NORMAL, Sodium Level 139, Potassium Level 3.5L, Chloride Level 111H, Carbon Dioxide Level 15L, Anion Gap 13, Blood Urea Nitrogen 6L, Creatinine 0.60, Estimat Glomerular Filtration Rate 129, BUN/Creatinine Ratio 10, Glucose Level 96, Calcium Level 9.1, Corrected Calcium 9.6, Total Bilirubin 0.8, Aspartate Amino Transf (AST/SGOT) 17, Alanine Aminotransferase (ALT/SGPT) 12, Alkaline Phosphatase 94, Total Protein 6.4, Albumin 3.4 01/02/23 13:55: Urine Color DARK YELLOW, Urine Clarity CLOUDY, Urine pH 6.5, Urine Specific [place] 1.015L, Urine Protein 1+H, Urine Glucose (UA) NEGATIVE, Urine Ketones 4+H, Urine Nitrite NEGATIVE, Urine Bilirubin NEGATIVE, Urine Urobilinogen 0.2, Urine Leukocyte Esterase 2+H, Urine RBC (Auto) 4+H, Urine RBC 50-100H, Urine WBC 2-5, Urine Squamous Epithelial Cells 5-10, Urine Crystals NONE, Urine Bacteria NEGATIVE, Urine Casts NONE, Urine Mucus MODERATEH, Urine Culture Indicated NO, Urine Opiates Screen NEGATIVE, Urine Oxycodone Screen NEGATIVE, Urine Methadone Screen NEGATIVE, Urine Propoxyphene Screen NEGATIVE, Urine Barbiturates Screen NEGATIVE, Ur Tricyclic Antidepressants Screen NEGATIVE, Urine Phencyclidine Screen NEGATIVE, Urine Amphetamines Screen NEGATIVE, Urine Methamphetamines Screen NEGATIVE, Urine Benzodiazepines Screen NEGATIVE, Urine Cocaine Screen NEGATIVE, Urine Cannabinoids Screen NEGATIVE Discharge Instructions to patient/family Please see electronic discharge instructions given to patient. Discharge Medications Reviewed and agree with Discharge Medication list on patient's Discharge Instruc tion sheet ANA MARIA TEJADA MD Jan 03, 2023 08:56
[2023-01-03 12:45] VITALS: BP 115/54
[2023-01-03] MEDS: BETAMETHASONE Acetate/Na Phosphate 6 MG/ML INJ IM SCH (14:21)
[2023-01-03 15:10] VITALS: BP 115/54
== END 2023-01-03 14:32 | disposition home or self-care (01) ==
LOC: WSo 12:33 → LDRP 12:33 → SUATTDRO 14:53 → WSo 14:59 → LDRP 15:00
PROVIDERS: ADMIT Family Medicine; ATTEND Family Medicine
DX: O99.891 Other specified diseases and conditions complicating pregnancy (principal); R31.9 Hematuria, unspecified; R10.9 Unspecified abdominal pain; Z3A.33 33 weeks gestation of pregnancy
CPT/HCPCS: 76815; 80053; 80306; 81000; 85007; 85027; 96360; 96361 ×2; 96372; 96375; 96376; G0378; G0379; 36415

== ENCOUNTER → 2023-01-06 | Outpatient (CLI) | payer MEDICAID ==
--- NOTE | 2023-01-06 15:00 | Diagnostic Imaging Report ---
PROCEDURE: US Renal Bilateral. TECHNIQUE: Multiple real-time grayscale images were obtained over the kidneys in various projections bilaterally. INDICATION: Acute left flank pain. COMPARISON: CT from 05/13/2022. FINDINGS: Right kidney: Length (cm): 13.7 Hydronephrosis: Moderate. The renal pelvis measures 2.9 cm. Cortex: Normal thickness and echogenicity. Other: No shadowing stones or solid masses. Left kidney: Length (cm): 12.2 Hydronephrosis: Mild. The renal pelvis measures 1.5 cm. Cortex: Normal thickness and echogenicity. Other: No shadowing stones or solid masses. Bladder: Not seen, appears to be empty. 34 weeks . Cephalic presentation. IMPRESSION: 1. Bilateral hydronephrosis, right greater than left. Dictated by: Dictated on workstation # [id number]
--- NOTE | 2023-01-06 16:06 | Diagnostic Imaging Report ---
Indication: A biophysical profile, left flank pain. Du gestation in cephalic position. There is a heart rate 160 bpm with normal TERESA 10.3 and receives a normal 8 out of 8 biophysical profile. Impression: Normal 8 out of 8 biophysical profile. Dictated by: Dictated on workstation # [id number]
== END ==
LOC: RAD 12:13
PROVIDERS: ATTEND Family Medicine
DX: N13.30 Unspecified hydronephrosis (principal)
CPT/HCPCS: 76770; 76819

== ENCOUNTER 2023-01-26 08:09 | Inpatient (IN) | payer MEDICAID ==
[2023-01-26] VITALS (59 sets, daily range): BP systolic 79–135; BP diastolic 44–89
[~2023-01-26] VITALS: Ht 157.5 cm; Wt 91.4 kg
[2023-01-26 10:04] LABS: BASOPHILS % (AUTO) 0 % (0-10); EOSINOPHILS % (AUTO) 0 % (0-10); HEMATOCRIT 33 % (35-52); HEMOGLOBIN 11.5 g/dL (11.5-16.0); LYMPHOCYTES # (AUTO) 1.4 10^3/uL (1.0-4.0); LYMPHOCYTES % (AUTO) 15 % (12-44); MEAN CORPUSCULAR HEMOGLOBIN 32 pg (25-34); MEAN CORPUSCULAR HGB CONC 35 g/dL (32-36); MEAN CORPUSCULAR VOLUME 91 fL (80-99); MEAN PLATELET VOLUME 10.9 fL (9.0-12.2); MONOCYTES # (AUTO) 0.6 10^3/uL (0.0-1.0); MONOCYTES % (AUTO) 6 % (0-12); NEUTROPHILS # (AUTO) 7.5 10^3/uL (1.8-7.8); NEUTROPHILS % (AUTO) 78 % (42-75); PLATELET COUNT 273 10^3/uL (130-400); WHITE BLOOD COUNT 9.6 10^3/uL (4.3-11.0)
[2023-01-26] MEDS ORDERED: LIDOCAINE 1% INJ 20 ML VIAL IJ PRN (10:15)
[2023-01-26] MEDS ORDERED: MINERAL OIL 30 ML UDC TOP PRN (10:15)
[2023-01-26] MEDS ORDERED: LACTATED RINGERS 1,000 ML 500 ML IV PRN (10:15)
[2023-01-26] MEDS: D5 LR 1,000 ML IV SOLN 1,000 ML IV SCH ×2 (10:36→18:41)
[2023-01-26] MEDS ORDERED: AMPICILLIN (IV) 2,000 MG in NS (IVPB) 50 ML 50 ML IV SCH (10:37)
[2023-01-26] MEDS ORDERED: fentaNYL 2 mcg/ml BUPIVA 0.125 100 ML ONE (10:46)
[2023-01-26] MEDS ORDERED: BUPIVACAINE 0.25% 10 ML VIAL ONE (11:00)
[2023-01-26] MEDS ORDERED: fentaNYL INJECTION 100 MCG/2 ML VIAL ONE (11:00)
[2023-01-26] MEDS: fentaNYL 2 mcg/ml BUPIVA 0.125 100 ML EPI SCH ×2 (11:25→18:37)
--- NOTE | 2023-01-26 12:42 | History & Physical-OB ---
OB - Chief Complaint & HPI Date/Time Date of Admission: Date of Admission: Jan 26, 2023 at 10:00 Date seen by a Provider: Jan 26, 2023 Time Seen by a Provider: 12:37 Chief Complaint/History OB-Reason for Admission/Chief: Labor Hx : 2 Hx Para: 1 Expected Date of Delivery: Feb 17, 2023 Gestational Age in Weeks: 36 Gestational Age in Days: 6 Other reason for admission: at 36w6d, complicated by an episode of suspected nephrolithiasis a few weeks ago and history of preeclampsia in previous , presented to Labor and Delivery due to vaginal bleeding, reported active bleeding dripping out in addition to blood when wiping that started at about 6 am, she had contractions starting at 5 am. Reports intercourse last night. Found to change from 3 to 4 cm and having contractions every 1.5 to 4 minutes on arrival. History of Labs B negative, antibody neg. HIV/HepB/HepC/RPR NR. GC/chlamydia neg. RI. 1 hr GTT normal. GBS pending, done on 01/23. Other complicated by initial 2 gestational sacs, no pole in one of the sacs at initial US, involuted by 17 weeks. Had low lying placenta on early ultrasound, on US 11/28/22 placenta was 2.2 cm from os and EFW was 97%. Additionally had preeclampsia in first , was started on aspirin for prevention in this but had excessive bruising and stopped. Also was seen earlier in around 24 weeks with left chest pain an darm pain, had negative EKG, negative troponin 3, normal BNP, elevated D dimer with negative V/Q scan and normal echocardiogram. She reported resolution of symptoms at 28 week visit, other than if she got angry, and complete resolution at the following visit. Had severe left flank pain at 33 weeks leading to short stay ultimately suspected to be nephrolithiasis, reported complete resolution at last Ob visit 01/23/23. Allergies and Home Medications Allergies Coded Allergies: No Known Drug Allergies (Unverified , 11/17/08) Patient Home Medication List Home Medication List Reviewed: Yes Vit/Iron Fumarate/FA ( Tablet) 27 Mg Iron-800 Mcg Tablet, 1 EACH PO DAILY, (Reported) Entered as Reported by: BRENT KEENAN on 10/31/22 0290 Last Action: Reviewed OB - History Hx of Present Care: Yes Obstetrical Complications: None Medical Complications: Other (see HPI) Obstetrical History Hx : 2 Hx Para: 1 Hx # Term Pregnancies: 1 Hx # Pregnancies: 0 Number of Living Children: 1 Hx Termination: No Hx Total # of Abortions (Spona: 0 Hx Multiple Gestation: Yes (2 gestational sacs early in current , no pole in one) Hx Ectopic : No Hx Stillbirth: No Hx Complication: Yes (preeclampsia with first ) Hx Induced Hypertens: Yes (with first ) Hx Maternal Gestational Diabet: No Hx Hemorrhage: No Delivery History Hx Dystocia: No Hx Forceps Assisted Delivery: No Hx Vacuum Extraction Assisted: No Hx Placenta Abnormality: No Hx Distress: No Hx Large For Gestational Age I: No Hx Small for Gestational Age I: No Hx Section: No Hx Vaginal Delivery Post C-Sec: No Hx Blood Disorders: No Adverse Rxn to Tranfusion: No Risk Variables Obstetrical Risk Variables: Not POA Anemia, Not POA Asthma, Not POA Autoimmune Disease, Not POA Bariatric Surgery, Not POA Bleeding Disorder, Not POA BMI >= 40, Not POA Cardiac Disease, Not POA Economic Housing Instabil, Not POA Gastrointestinal Disease, Not POA Gestational Diabetes, Not POA HIV, Not POA Hypertension, Not POA 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 Anticoagulant U, Not POA Mental Health Disorder, Not POA Multiple , Not POA Neuromuscular Disease, Not POA Obstetrical VTE, Not POA Other Preeclampsia, Not POA Placenta Previa, Not POA Placental Abruption, Not POA Placenta Accreta Spectrum, Not POA Preexisting Diabetes, Not POA , Not POA Previous , Not POA Pulmonary Hypertension; POA Renal Disease (suspected nephrolithiasis); Not POA Severe Preeclampsia, Not POA Substance Abuse, Not POA Thyrotoxicosis Patient Past Medical History PMHx: Pyelonephritis 05/2022 SurgHx: Tonsillectomy Cholecystectomy Social History/Family History Alcohol Use: Denies Use Recreational Drug Use: No Smoking Cessation: Never smoker 2nd Hand Smoke Exposure: No Immunizations Influenza Vaccine Up-to-Date: No; Not Current First/Initial COVID19 Vaccine: 12/26/2020 Second COVID19 Vaccination: 01/30/2021 Hepatitis B: No Tetanus Booster (TDap): Less than 5yrs (02/27/2020) Rubella: immune RPR/VDRL: Negative GBS Status: Unknown HBsAG: Negative OB - Admission Exam Physical Exam Vitals: Vital Signs 01/26/23 01/26/23 11:00 11:35 Temp 36.4 Pulse 67 Resp 18 B/P (MAP) 110/62 (78) Pulse Ox 98 O2 Delivery Room Air HEENT: NCAT Abdomen: Non tender Extremities: Normal Cervical Dilatation: 4cm (per nursing exam) Effacement: Other (60) Station: -3 Membranes: Intact Heart Rate: 140's Accelerations: Accelerations Present Decelerations: No Decelerations Short Term Variability: Present Detention Variability: Average (6-25) Contractions on Admission: < 5 Minutes Apart Intensity: Moderate Labs Laboratory Tests Test 01/26/23 09:50 Range/Units White Blood Count 9.6 4.3-11.0 10^3/uL Red Blood Count 3.65 L 3.80-5.11 10^6/uL Hemoglobin 11.5 11.5-16.0 g/dL Hematocrit 33 L 35-52 % Mean Corpuscular Volume 91 80-99 fL Mean Corpuscular Hemoglobin 32 25-34 pg Mean Corpuscular Hemoglobin Concent 35 32-36 g/dL Red Cell Distribution Width 13.2 10.0-14.5 % Platelet Count 273 130-400 10^3/uL Mean Platelet Volume 10.9 9.0-12.2 fL Immature Granulocyte % (Auto) 1 % Neutrophils (%) (Auto) 78 H 42-75 % Lymphocytes (%) (Auto) 15 12-44 % Monocytes (%) (Auto) 6 0-12 % Eosinophils (%) (Auto) 0 0-10 % Basophils (%) (Auto) 0 0-10 % Neutrophils # (Auto) 7.5 1.8-7.8 10^3/uL Lymphocytes # (Auto) 1.4 1.0-4.0 10^3/uL Monocytes # (Auto) 0.6 0.0-1.0 10^3/uL Eosinophils # (Auto) 0.0 0.0-0.3 10^3/uL Basophils # (Auto) 0.0 0.0-0.1 10^3/uL Immature Granulocyte # (Auto) 0.1 0.0-0.1 10^3/uL Syphilis Total Antibody Negative Negative OB - Assessment/Plan/Diagnosis Assessment Admission Dx labor Third trimester bleeding Admission Status: Inpatient Order (span 2 midnights) Reason for Inpatient Admission: Labor, delivery and course Plan Problems: (1) Third trimester bleeding Assessment & Plan: Amount reported at home concerning for possible partial abruption, has had minimal bleeding since admit more consistent with cervical change. Monitor closely. status reassuring. (2) labor Assessment & Plan: 36w6d, expectant management, ampicillin for GBS unknown. Qualifiers: LEON GOULD MD Jan 26, 2023 12:41
[2023-01-26] MEDS ORDERED: NALOXONE 0.4 MG/ML 1 ML VIAL IV PRN (13:00)
[2023-01-26] MEDS ORDERED: LACTATED RINGERS 1,000 ML 1,000 ML IV ONE (13:00)
[2023-01-26] MEDS ORDERED: ONDANSETRON INJECTION 4 MG/2 ML (SDV) IV PRN (13:00)
[2023-01-26] MEDS ORDERED: diphenhydrAMINE INJ 50 MG/ML VIAL IV PRN (13:00)
[2023-01-26] MEDS ORDERED: CATHETER FLUSH 10 ML SYR IV PRN (13:00)
[2023-01-26] MEDS: AMPICILLIN (IV) 1,000 MG in NS (IVPB) 50 ML 50 ML IV SCH ×3 (14:53→22:40)
[2023-01-26] MEDS: CATHETER FLUSH 10 ML SYR IV SCH (22:00)
[2023-01-27] VITALS (33 sets, daily range): BP systolic 96–125; BP diastolic 55–77
[2023-01-27] MEDS: D5 LR 1,000 ML IV SOLN 1,000 ML IV SCH (02:26)
[2023-01-27] MEDS: AMPICILLIN (IV) 1,000 MG in NS (IVPB) 50 ML 50 ML IV SCH ×2 (02:26→06:50)
[2023-01-27] MEDS: fentaNYL 2 mcg/ml BUPIVA 0.125 100 ML EPI SCH (06:51)
[2023-01-27] MEDS: CATHETER FLUSH 10 ML SYR IV SCH (06:52)
--- NOTE | 2023-01-27 09:53 | Discharge Summary ---
Discharge Summary Hospital Course Problems/Diagnosis: (1) labor Status: Resolved Resolution Date/Time: 01/27/23 @ 09:45 Qualifiers: (2) Third trimester bleeding Status: Resolved Resolution Date/Time: 01/27/23 @ 09:45 Hospital Course Date of Admission: Jan 26, 2023 at 10:00 Admission Diagnosis : contractions, suspected labor Third trimester bleeding Family Physician/Provider: Leon Sharp MD Date of Discharge: 01/27/23 Discharge Diagnosis: contractions without continued cervical change Third trimester bleeding- resolved Hospital Course: 22 yo presented at 36w6d with contractions every 1-4 minutes and cervical change from 3 to 4 cm during observation period, so she was admitted. However, after admission, contractions slowed in frequency and ultimately decreased to as few as 2-3 per hour. She had no cervical change after admission, was 4/60/-3 from noon on 01/26 until around 2044. At that time I saw patient and checked her and she was 4.5/60/-3, given this was a different examiner and contractions had spaced out and she had no further bleeding after arrival to the hospital and the status remained reassuring over entire time, discussed with patient going home versus further monitoring. (At that time I was unable to access the EMR, so no note was written at that time). We decided to monitor overnight, and throughout the night status remained reassuring, contractions remained at around every 10 to 15 minutes and this morning cervical exam by me remained unchanged at 4.5/60/-3. Discussed not meeting criteria for active labor, and just at 37 weeks today, risks of 37 weeks delivery versus risk of rapid cervical change at home (reviewed first labor which was actually protracted), and she was in agreement with discharge to home and return if contractions become more frequent. Labs and Pending Lab Test: Laboratory Tests 01/26/23 09:50: White Blood Count 9.6, Red Blood Count 3.65L, Hemoglobin 11.5, Hematocrit 33L, Mean Corpuscular Volume 91, Mean Corpuscular Hemoglobin 32, Mean Corpuscular Hemoglobin Concent 35, Red Cell Distribution Width 13.2, Platelet Count 273, Mean Platelet Volume 10.9, Immature Granulocyte % (Auto) 1, Neutrophils (%) (Auto) 78H, Lymphocytes (%) (Auto) 15, Monocytes (%) (Auto) 6, Eosinophils (%) (Auto) 0, Basophils (%) (Auto) 0, Neutrophils # (Auto) 7.5, Lymphocytes # (Auto) 1.4, Monocytes # (Auto) 0.6, Eosinophils # (Auto) 0.0, Basophils # (Auto) 0.0, Immature Granulocyte # (Auto) 0.1, Syphilis Total Antibody Negative Home Meds Active Reported Tablet ( Vit/Iron Fumarate/FA) 27 Mg Iron-800 Mcg Tablet 1 Each PO DAILY Assessment/Pt DC Instructions Follow up with Dr. Sharp on as scheduled, return to the hospital if contractions are every 5 minutes or bleeding more than spotting recurs or you have a gush of fluid concerning for amniotic membrane rupture or if the baby is not moving normally. Discharge Diet: No Restrictions Activity as Tolerated: Yes Discharge Physical Examination Allergies: Coded Allergies: No Known Drug Allergies (Unverified , 11/17/08) General Appearance: No Apparent Distress Respiratory: No Respiratory Distress Gastrointestinal: Other (gravid, nontender) Extremity: Other (trace pedal edema) Skin: Normal Color, Warm/Dry Neurologic/Psychiatric: Alert, Normal Mood/Affect LEON SHARP MD Jan 27, 2023 09:51
== END 2023-01-27 09:51 | disposition home or self-care (01) | DRG 831 ==
LOC: WSo 08:09 → LDRP 08:09 → WSo 09:59 → LDRP 10:00
PROVIDERS: ADMIT Family Medicine; ATTEND Family Medicine
DX: O46.93 Antepartum hemorrhage, unspecified, third trimester (principal); O60.03 Preterm labor without delivery, third trimester; Z3A.36 36 weeks gestation of pregnancy
CPT/HCPCS: 36415; 85025; 86780; 86850; 86900; 86901; 99213

== ENCOUNTER 2023-01-29 15:35 | Inpatient (IN) | payer MEDICAID ==
[~2023-01-29] VITALS: Ht 157.5 cm; Wt 91.9 kg
[2023-01-29] VITALS (40 sets, daily range): BP systolic 95–154; BP diastolic 47–91
--- NOTE | 2023-01-29 15:53 | History & Physical-OB ---
OB - Chief Complaint & HPI Date/Time Date of Admission: Date of Admission: Jan 29, 2023 at 15:35 Date seen by a Provider: Jan 29, 2023 Time Seen by a Provider: 17:00 Chief Complaint/History OB-Reason for Admission/Chief: Medical Complication Hx : 2 Hx Para: 1 Expected Date of Delivery: Feb 17, 2023 Gestational Age in Weeks: 37 Gestational Age in Days: 2 Indication for induction: medical complication History of Labs B neg, RI. HIV/HepB/RPR NR. GC/chlamydia neg. 1 hr gtt nml. GBS pos. Other Multiple issues in current , sent over today due to mild preeclampsia, noted to have BP 120s/90s at visit this morning and 1+ protein on dip, sent for STAT labs, urine pr/cr ratio 0.5, repeated BP about 1 pm remained 130s/90s. She also was admitted earlier this week for suspected labor with cervical change from 3-4+, then no further change and contractions spaced out and she was discharge. Earlier complicated by initial 2 gestational sacs, no pole in one of the sacs at initial US, involuted by 17 weeks. Had low lying placenta on early ultrasound, on US 11/28/22 placenta was 2.2 cm from os and EFW was 97%. Additionally had preeclampsia in first , was started on aspirin for prevention in this but had excessive bruising and stopped. Also was seen earlier in around 24 weeks with left chest pain an darm pain, had negative EKG, negative troponin 3, normal BNP, elevated D dimer with negative V/Q scan and normal echocardiogram. She reported resolution of symptoms at 28 week visit, other than if she got angry, and complete resolution at the following visit. Had severe left flank pain at 33 weeks leading to short stay ultimately suspected to be nephrolithiasis, reported complete resolution at Ob visit 01/23/23. Allergies and Home Medications Allergies Coded Allergies: No Known Drug Allergies (Unverified , 11/17/08) Patient Home Medication List Home Medication List Reviewed: Yes Vit/Iron Fumarate/FA ( Tablet) 27 Mg Iron-800 Mcg Tablet, 1 EACH PO DAILY, (Reported) Entered as Reported by: BRENT KEENAN on 10/31/22 9238 OB - History Hx of Present Care: Yes Ultrasounds: Normal mid trimester US Obstetrical Complications: Pre-eclampsia Medical Complications: Genitourinary (suspected nephrolithiasis) Information Induced Hypertension: Yes Maternal Gestational Diabetes: No Hemorrhage: No Obstetrical History Hx : 2 Hx Para: 1 Hx # Term Pregnancies: 1 Hx # Pregnancies: 0 Number of Living Children: 1 Hx Termination: No Hx Multiple Gestation: Yes (2 gestational sacs early in current , no pole in one) Hx Ectopic : No Hx Stillbirth: No Hx Complication: Yes (preeclampsia in first and current ) Hx Induced Hypertens: Yes Hx Maternal Gestational Diabet: No Hx Hemorrhage: No Delivery History Hx Dystocia: No Hx Forceps Assisted Delivery: No Hx Vacuum Extraction Assisted: No Hx Placenta Abnormality: No Hx Distress: No Hx Large For Gestational Age I: No Hx Small for Gestational Age I: No Hx Section: No Hx Vaginal Delivery Post C-Sec: No Hx Blood Disorders: No Adverse Rxn to Tranfusion: No Risk Variables Obstetrical Risk Variables: POA Anemia; Not POA Asthma, Not POA Autoimmune Disease, Not POA Bariatric Surgery, Not POA Bleeding Disorder, Not POA BMI >= 40, Not POA Cardiac Disease, Not POA Economic Housing Instabil, Not POA Gastrointestinal Disease, Not POA Gestational Diabetes, Not POA HIV; POA Hypertension; Not POA Care Home Anticoagulant U, Not POA Mental Health Disorder, Not POA Multiple , Not POA Neuromuscular Disease, Not POA Obstetrical VTE; POA Other Preeclampsia; Not POA Placenta Previa, Not POA Placental Abruption, Not POA Placenta Accreta Spectrum, Not POA Preexisting Diabetes, Not POA , Not POA Previous , Not POA Pulmonary Hypertension, Not POA Renal Disease, Not POA Severe Preeclampsia, Not POA Substance Abuse, Not POA Thyrotoxicosis Patient Past Medical History PMHx: Pyelonephritis 05/2022 SurgHx: Tonsillectomy Cholecystectomy Social History/Family History Alcohol Use: Denies Use Recreational Drug Use: No Smoking Cessation: Never smoker 2nd Hand Smoke Exposure: No Immunizations First/Initial COVID19 Vaccine: 12/26/2020 Second COVID19 Vaccination: 01/30/2021 Hepatitis B: No Tetanus Booster (TDap): Less than 5yrs Rubella: immune RPR/VDRL: Negative GBS Status: Positive HBsAG: Negative OB - Admission Exam Physical Exam HEENT: NCAT Abdomen: Non tender Extremities: Edema (trace) Cervical Dilatation: 5cm Effacement: 25% Station: -3 Membranes: Ruptured (AROM attempted at time of exam, but minimal fluid return) Amniotic Fluid: Clear Heart Rate: 150's Accelerations: Accelerations Present Decelerations: No Decelerations Short Term Variability: Present Care Home Variability: Average (6-25) Yang Scoring Tool (Modified) Dilation (cm): >5cm (3) Effacement (%): 0-30% (0) Descent/Station: -3 (0) Cervix Consistency: Soft (2) Cervix Position: Anterior (2) Add 1 point for: Each previous vaginal delivery (1) Yang Score: 8 OB - Assessment/Plan/Diagnosis Assessment Admission Dx Preeclampsia without severe features 37 weeks gestation GBS positive Admission Status: Inpatient Order (span 2 midnights) Reason for Inpatient Admission: Labor, delivery and course Plan Plan: Induction Induction Method: per Pitocin Protocol Problems: (1) Preeclampsia Assessment & Plan: BP in the office this morning 120s/90-92, repeat after lunch 130/90. STAT labs showed normal CMP, LDH, uric acid and platelets, but urine pr/cr ratio 0.5. Due to no severe features, will not start magnesium at this time but will monitor closely. Qualifiers: Qualified Codes: O14.93 - Unspecified pre-eclampsia, third trimester (2) GBS (group B Streptococcus carrier), +RV culture, currently Assessment & Plan: Ampicillin LEON GOULD MD Jan 29, 2023 15:53
[2023-01-29] MEDS ORDERED: AMPICILLIN (IV) 2,000 MG in NS (IVPB) 50 ML 50 ML IV SCH (16:30)
[2023-01-29] MEDS ORDERED: D5 LR 1,000 ML IV SOLN 1,000 ML IV SCH (16:30)
[2023-01-29] MEDS ORDERED: OXYTOCIN DRIP PRE-MIX 500 ML IV SCH ×2 (16:30→23:15)
[2023-01-29] MEDS ORDERED: MINERAL OIL 30 ML UDC TOP PRN (16:30)
[2023-01-29] MEDS ORDERED: LACTATED RINGERS 1,000 ML 500 ML IV PRN (16:30)
[2023-01-29 17:01] LABS: BASOPHILS % (AUTO) 0 % (0-10); EOSINOPHILS % (AUTO) 0 % (0-10); HEMATOCRIT 32 % (35-52); HEMOGLOBIN 10.9 g/dL (11.5-16.0); LYMPHOCYTES # (AUTO) 1.1 10^3/uL (1.0-4.0); LYMPHOCYTES % (AUTO) 12 % (12-44); MEAN CORPUSCULAR HEMOGLOBIN 31 pg (25-34); MEAN CORPUSCULAR HGB CONC 34 g/dL (32-36); MEAN CORPUSCULAR VOLUME 91 fL (80-99); MEAN PLATELET VOLUME 10.9 fL (9.0-12.2); MONOCYTES # (AUTO) 0.5 10^3/uL (0.0-1.0); MONOCYTES % (AUTO) 6 % (0-12); NEUTROPHILS # (AUTO) 7.6 10^3/uL (1.8-7.8); NEUTROPHILS % (AUTO) 82 % (42-75); PLATELET COUNT 290 10^3/uL (130-400); WHITE BLOOD COUNT 9.3 10^3/uL (4.3-11.0)
[2023-01-29] MEDS ORDERED: BUPIVACAINE 0.25% 10 ML VIAL ONE (17:50)
[2023-01-29] MEDS ORDERED: fentaNYL INJECTION 100 MCG/2 ML VIAL ONE (17:50)
[2023-01-29] MEDS ORDERED: fentaNYL 2 mcg/ml BUPIVA 0.125 100 ML ONE (17:51)
[2023-01-29] MEDS ORDERED: NALOXONE 0.4 MG/ML 1 ML VIAL IV PRN (18:00)
[2023-01-29] MEDS ORDERED: LACTATED RINGERS 1,000 ML 1,000 ML IV ONE (18:00)
[2023-01-29] MEDS ORDERED: CATHETER FLUSH 10 ML SYR IV PRN (18:00)
[2023-01-29] MEDS ORDERED: fentaNYL 2 mcg/ml BUPIVA 0.125 100 ML EPI SCH (18:00)
[2023-01-29] MEDS ORDERED: ONDANSETRON INJECTION 4 MG/2 ML (SDV) ONE (18:30)
[2023-01-29] MEDS ORDERED: ONDANSETRON INJECTION 4 MG/2 ML (SDV) IVP PRN (20:00)
[2023-01-29] MEDS ORDERED: AMPICILLIN (IV) 1,000 MG in NS (IVPB) 50 ML 50 ML IV SCH (20:30)
[2023-01-29] MEDS ORDERED: LIDOCAINE 1% INJ 10 ML VIAL ONE (21:55)
[2023-01-29] MEDS ORDERED: CATHETER FLUSH 10 ML SYR IV SCH (22:00)
[2023-01-29] MEDS ORDERED: BENZOCAINE/MENTHOL (DERMOPLAST) 56 ML CAN TP PRN (23:15)
[2023-01-29] MEDS ORDERED: WITCH HAZEL(TUCKS) 40 EA JAR TOP PRN (23:15)
--- NOTE | 2023-01-29 23:15 | OB Labor & Delivery Record ---
Vag Delivery Note Vag Delivery Note Date of Delivery: 01/29/23 Preoperative Diagnosis: Yarelis Valenzuela is a 22 /Para 2 / 1, Gestational Age (wks)37with 2 days complicated by preeclampsia Postoperative Diagnosis: Same Surgeon: LEON GOULD Anesthesia: Epidural Delivery Type: Findings: Viable male infant, apgars 8/8, weight pending Lacerations: none Intact placenta with 3 vessel cord. Nuchal cord x2, no body cord or shoulder dystocia Estimated Blood Loss: 200 ml Complications: None Condition: Stable Description of Procedure: The patient is a 22 year old female who presented for induction of labor due to preeclampsia. She was admitted and informed consent was obtained. Her labor course was uncomplicated. She progressed to complete dilatation and began to push. She was then set up for delivery. The 's head was delivered atraumatically in the FABIENNE position. The shoulders and remainder of the infant's body were then delivered without difficulty. Upon delivery, the was vigorous and placed on maternal chest and the mouth and nares were bulb suctioned. After a delay cord was doubly clamped and cut and the remained on maternal chest. An intact placenta with 3-vessel cord delivered via Lesli and there was found to be minimal bleeding.~ Vigorous fundal massage was performed and the fundus was found to be firm. IV oxytocin was given. Examination of the vagina and perineum revealed no lacerations. Following the delivery, sponge, instrument and needle counts were correct. Mom and baby were both in stable condition in the labor suite. Vitals - Labs Vital Signs - I&O Vital Signs Date Time Temp Pulse Resp B/P (MAP) Pulse Ox O2 Delivery O2 Flow Rate FiO2 01/29/23 22:30 70 138/72 (94) 100 Room Air 01/29/23 22:15 70 134/82 (99) 100 Room Air 01/29/23 22:00 67 150/87 (108) 100 Room Air 01/29/23 21:45 65 102/59 (73) 100 Room Air 01/29/23 21:40 56 130/79 (96) 100 Room Air 01/29/23 21:34 56 115/76 (89) 100 Room Air 01/29/23 21:30 36.6 71 139/85 (103) 100 Room Air 01/29/23 21:26 65 136/78 (97) 100 Room Air 01/29/23 21:20 63 133/81 (98) 100 Room Air 01/29/23 21:15 67 136/85 (102) 100 Room Air 01/29/23 21:00 69 98 Room Air 01/29/23 20:45 58 95/47 (63) 98 Room Air 01/29/23 20:30 58 112/72 (85) 98 Room Air 01/29/23 20:15 59 120/69 (86) 99 Room Air 01/29/23 20:00 63 116/63 (80) 99 Room Air 01/29/23 19:45 60 120/66 (84) 99 Room Air 01/29/23 19:30 69 120/67 (84) 98 Room Air 01/29/23 19:15 36.5 71 127/66 (86) 98 Room Air 01/29/23 18:56 36.4 77 131/67 (88) 96 Room Air 01/29/23 18:38 76 18 123/63 (83) 98 Room Air 01/29/23 18:34 66 116/62 (80) 98 Room Air 01/29/23 18:30 71 121/65 (83) 99 Room Air 01/29/23 18:27 71 117/65 (82) 01/29/23 18:25 73 118/67 (84) 98 Room Air 01/29/23 18:22 64 116/67 (83) 99 Room Air 01/29/23 18:19 74 116/73 (87) 99 Room Air 01/29/23 18:16 75 113/74 (87) 99 Room Air 01/29/23 18:08 81 126/80 (95) 98 Room Air 01/29/23 18:03 75 121/80 (94) 99 Room Air 01/29/23 17:49 73 127/81 (96) 01/29/23 17:34 70 146/84 (104) 01/29/23 17:34 70 146/84 (104) 01/29/23 17:15 76 123/82 (96) 01/29/23 16:30 37.0 82 18 98 Room Air 01/29/23 16:02 37.0 85 18 115/74 (88) 98 Room Air Labs Laboratory Tests 01/29/23 16:38: White Blood Count 9.3, Red Blood Count 3.54L, Hemoglobin 10.9L, Hematocrit 32L, Mean Corpuscular Volume 91, Mean Corpuscular Hemoglobin 31, Mean Corpuscular Hemoglobin Concent 34, Red Cell Distribution Width 13.0, Platelet Count 290, Mean Platelet Volume 10.9, Immature Granulocyte % (Auto) 0, Neutrophils (%) (Auto) 82H, Lymphocytes (%) (Auto) 12, Monocytes (%) (Auto) 6, Eosinophils (%) (Auto) 0, Basophils (%) (Auto) 0, Neutrophils # (Auto) 7.6, Lymphocytes # (Auto) 1.1, Monocytes # (Auto) 0.5, Eosinophils # (Auto) 0.0, Basophils # (Auto) 0.0, Immature Granulocyte # (Auto) 0.0, Syphilis Total Antibody Negative LEON GOULD MD Jan 29, 2023 23:15
[2023-01-29] MEDS ORDERED: IBUPROFEN 600 MG TABLET PO ONE (23:27)
[2023-01-29] MEDS: IBUPROFEN 600 MG TABLET PO PRN (23:28)
[2023-01-30] VITALS (11 sets, daily range): BP systolic 101–134; BP diastolic 54–75
[2023-01-30] MEDS: ACETAMINOPHEN 500 MG TABLET PO PRN ×3 (01:53→18:35)
[2023-01-30] MEDS: IBUPROFEN 600 MG TABLET PO PRN ×4 (05:46→23:42)
[2023-01-30] MEDS ORDERED: CATHETER FLUSH 10 ML SYR IV SCH (06:00)
[2023-01-30 06:14] LABS: BASOPHILS % (AUTO) 0 % (0-10); EOSINOPHILS % (AUTO) 0 % (0-10); HEMATOCRIT 28 % (35-52); HEMOGLOBIN 9.7 g/dL (11.5-16.0); LYMPHOCYTES # (AUTO) 1.5 10^3/uL (1.0-4.0); LYMPHOCYTES % (AUTO) 12 % (12-44); MEAN CORPUSCULAR HEMOGLOBIN 31 pg (25-34); MEAN CORPUSCULAR HGB CONC 35 g/dL (32-36); MEAN CORPUSCULAR VOLUME 91 fL (80-99); MONOCYTES # (AUTO) 0.9 10^3/uL (0.0-1.0); MONOCYTES % (AUTO) 7 % (0-12); NEUTROPHILS # (AUTO) 10.2 10^3/uL (1.8-7.8); NEUTROPHILS % (AUTO) 81 % (42-75); PLATELET COUNT 254 10^3/uL (130-400); WHITE BLOOD COUNT 12.6 10^3/uL (4.3-11.0)
[2023-01-30] MEDS ORDERED: RHO(D) IMMUNE GLOBULIN 300 MCG/2 ML SYRINGE IM/IV ONE (08:00)
--- NOTE | 2023-01-30 09:34 | Postpartum Progress Note ---
Note Note Day # 1 Subjective: Patient is without complaints. Ambulating, voiding. Tolerating a regular diet without nausea or vomiting. Normal lochia. Pain is well controlled with oral pain medications. Breast feeding. Blood pressures well controlled ON Objective: Physical Exam: General - Alert and oriented, no apparent distress Abdomen - Soft, appropriately tender to palpation, non-distended, fundus firm at umbilicus Extremities - no edema, negative Stacy's bilaterally Assessment: 22 yo G2 now P2 post- day # 1, status post spontaneous vaginal delivery. Recovering well, hemodynamically stable Asymptomatic Anemia of acute blood loss Mild Pre eclampsia Plan: Routine care. Encourage breast feeding. Encourage ambulation. Ferrous sulfate supplementation. Plan for discharge in AM Vitals - Labs Vital Signs - I&O Vital Signs Date Time Temp Pulse Resp B/P (MAP) Pulse Ox O2 Delivery O2 Flow Rate FiO2 01/30/23 05:49 36.7 63 18 120/73 (89) 98 Room Air 01/30/23 01:40 36.8 78 18 111/59 (76) 99 Room Air 01/30/23 01:25 71 111/60 (77) 01/30/23 01:11 67 109/57 (74) 01/30/23 00:56 79 134/74 (94) 01/30/23 00:41 63 101/59 (73) 01/30/23 00:11 36.5 63 102/54 (70) 01/29/23 23:56 36.7 69 115/61 (79) 01/29/23 23:41 36.4 67 118/58 (78) 01/29/23 23:25 36.4 74 128/70 (89) 01/29/23 23:10 36.6 70 127/66 (86) 01/29/23 23:01 76 138/67 (90) 01/29/23 22:58 78 128/91 (103) 100 Room Air 01/29/23 22:45 75 154/66 (95) 100 Room Air 01/29/23 22:30 70 138/72 (94) 100 Room Air 01/29/23 22:15 70 134/82 (99) 100 Room Air 01/29/23 22:00 67 150/87 (108) 100 Room Air 01/29/23 21:45 65 102/59 (73) 100 Room Air 01/29/23 21:40 56 130/79 (96) 100 Room Air 01/29/23 21:34 56 115/76 (89) 100 Room Air 01/29/23 21:30 36.6 71 139/85 (103) 100 Room Air 01/29/23 21:26 65 136/78 (97) 100 Room Air 01/29/23 21:20 63 133/81 (98) 100 Room Air 01/29/23 21:15 67 136/85 (102) 100 Room Air 01/29/23 21:00 69 98 Room Air 01/29/23 20:45 58 95/47 (63) 98 Room Air 01/29/23 20:30 58 112/72 (85) 98 Room Air 01/29/23 20:15 59 120/69 (86) 99 Room Air 01/29/23 20:00 63 116/63 (80) 99 Room Air 01/29/23 19:45 60 120/66 (84) 99 Room Air 01/29/23 19:30 69 120/67 (84) 98 Room Air 01/29/23 19:15 36.5 71 127/66 (86) 98 Room Air 01/29/23 18:56 36.4 77 131/67 (88) 96 Room Air 01/29/23 18:38 76 18 123/63 (83) 98 Room Air 01/29/23 18:34 66 116/62 (80) 98 Room Air 01/29/23 18:30 71 121/65 (83) 99 Room Air 01/29/23 18:27 71 117/65 (82) 01/29/23 18:25 73 118/67 (84) 98 Room Air 01/29/23 18:22 64 116/67 (83) 99 Room Air 01/29/23 18:19 74 116/73 (87) 99 Room Air 01/29/23 18:16 75 113/74 (87) 99 Room Air 01/29/23 18:08 81 126/80 (95) 98 Room Air 01/29/23 18:03 75 121/80 (94) 99 Room Air 01/29/23 17:49 73 127/81 (96) 01/29/23 17:34 70 146/84 (104) 01/29/23 17:34 70 146/84 (104) 01/29/23 17:15 76 123/82 (96) 01/29/23 16:30 37.0 82 18 98 Room Air 01/29/23 16:02 37.0 85 18 115/74 (88) 98 Room Air I & O 01/30/23 07:00 Intake Total 1474.8 ml Balance 1474.8 ml Labs Laboratory Tests 01/29/23 16:38: White Blood Count 9.3, Red Blood Count 3.54L, Hemoglobin 10.9L, Hematocrit 32L, Mean Corpuscular Volume 91, Mean Corpuscular Hemoglobin 31, Mean Corpuscular Hemoglobin Concent 34, Red Cell Distribution Width 13.0, Platelet Count 290, Mean Platelet Volume 10.9, Immature Granulocyte % (Auto) 0, Neutrophils (%) (Auto) 82H, Lymphocytes (%) (Auto) 12, Monocytes (%) (Auto) 6, Eosinophils (%) (Auto) 0, Basophils (%) (Auto) 0, Neutrophils # (Auto) 7.6, Lymphocytes # (Auto) 1.1, Monocytes # (Auto) 0.5, Eosinophils # (Auto) 0.0, Basophils # (Auto) 0.0, Immature Granulocyte # (Auto) 0.0, Syphilis Total Antibody Negative 01/30/23 06:00: White Blood Count 12.6H, Red Blood Count 3.09L, Hemoglobin 9.7L, Hematocrit 28L, Mean Corpuscular Volume 91, Mean Corpuscular Hemoglobin 31, Mean Corpuscular Hemoglobin Concent 35, Red Cell Distribution Width 13.2, Platelet Count 254, Mean Platelet Volume 11.0, Immature Granulocyte % (Auto) 0, Neutrophils (%) (Auto) 81H, Lymphocytes (%) (Auto) 12, Monocytes (%) (Auto) 7, Eosinophils (%) (Auto) 0, Basophils (%) (Auto) 0, Neutrophils # (Auto) 10.2H, Lymphocytes # (Auto) 1.5, Monocytes # (Auto) 0.9, Eosinophils # (Auto) 0.0, Basophils # (Auto) 0.0, Immature Granulocyte # (Auto) 0.1 URVASHI TIWARI MD Jan 30, 2023 09:34
[2023-01-30] MEDS ORDERED: RHO(D) IMMUNE GLOBULIN 300 MCG/2 ML SYRINGE ONE (10:54)
[2023-01-30] MEDS: FERROUS SULFATE 325 MG (IRON) TABLET PO SCH (10:58)
[2023-01-30] MEDS: PRENATAL VITAMIN TABLET PO SCH (10:58)
[2023-01-30] MEDS: DOCUSATE SODIUM 100 MG CAPSULE PO SCH ×2 (10:58→20:19)
--- NOTE | 2023-01-30 11:54 | Anesthesia-Regional Post-Op ---
Regional Patient Condition Mental Status: Alert, Oriented x3 Circulation: Same as Pre-Op Headache: Absent Sensation: Full Recovery Motor Block: Absent Post Op Complications Complications None Follow Up Care/Instructions Patient Instructions None needed. Anesthesia/Patient Condition Patient is doing well, no complaints, stable vital signs, no apparent adverse anesthesia problems. No complications reported per nursing. JOSE VARMA CRNA Jan 30, 2023 11:53
[2023-01-31 05:30] VITALS: BP 105/58
[2023-01-31] MEDS: IBUPROFEN 600 MG TABLET PO PRN (05:37)
--- NOTE | 2023-01-31 07:04 | Discharge Summary ---
Diagnosis/Chief Complaint Date of Admission Jan 29, 2023 at 15:35 Date of Discharge January 31, 2023 Admission Diagnosis Admission Diagnosis 1. Intrauterine at 37 weeks 2 days gestation 2. Mild preeclampsia 3. Anemia Discharge Diagnosis 1. Intrauterine at 37 weeks 2 days gestation 2. Mild preeclampsia 3. Anemia Chief Complaint/HPI Chief Complaint/HPI 22-year-old 2 now term to who was initially sent over today due to mild preeclampsia, noted to have BP 120s/90s at visit this morning and 1+ protein on dip, sent for STAT labs, urine pr/cr ratio 0.5, repeated BP about 1 pm remained 130s/90s. She also was admitted earlier this week for suspected labor with cervical change from 3-4+, then no further change and contractions spaced out and she was discharge. Discharge Summary-OBS Procedures 1. Epidural per anesthesia 2. Spontaneous vaginal deliveryDr. Sharp Discharge Physical Examination Allergies: Coded Allergies: No Known Drug Allergies (Unverified , 11/17/08) Vitals & I&Os Vital Sign - Last 12Hours Date Time Temp Pulse Resp B/P (MAP) Pulse Ox O2 Delivery O2 Flow Rate FiO2 01/31/23 05:30 36.6 60 16 105/58 (74) 98 Room Air General Appearance: Alert, Oriented X3 Respiratory: Clear to Auscultation Cardiovascular: Regular Rate Abdominal: Soft (With uterus firm) Hospital Course Was the Problem List Reviewed?: Yes patient was admitted during the afternoon of January 29, 2023 for induction of labor due to mild preeclampsia. She ultimately went on to deliver a term viable male with Apgars of 8 at 1 minute and 8 at 5 minutes. Mother had received epidural during the course of labor and tolerated well. See labor and delivery note for full details. Following delivery she underwent routine care orders. She had hemog lobin in the morning of January 30 of 9.7 compared to admission of 10.9. Her blood pressures remained within normal range during the remainder of hospital stay. She had no significant complications. No shortness of breath or leg pain. Ultimately she was felt ready for dismissal in the morning of January 31, 2023 with follow-up Dr. Sharp in 6 weeks. Discharge Instructions to patient/family Please see electronic discharge instructions given to patient. Discharge Medications Reviewed and agree with Discharge Medication list on patient's Discharge Instruction sheet ANA MARIA TEJADA MD Jan 31, 2023 07:04
--- NOTE | 2023-01-31 07:10 | Discharge Inst-Women's Service ---
Discharge Inst-Women's Serv Depart Medication/Instructions Instructions May take ibuprofen 200 mg tablets [id number], 2 or 3 every 6 hours if needed for cramps. may take iron sulfate 325 mg 1 tablet daily for the next month as well. Consults/Follow Up Additional Follow Up: Yes (Dr. Sharp In 6 weeks) Activity Nothing Inside Vagina: No [place] (For 6 weeks) Diet Discharge Diet: Regular Diet Return to The Hospital For: As below Symptoms to Report to : Bleeding Excessive, Fever Over 101 Degrees F, Vaginal Discharge Foul For Any Problems or Questions: Contact Your Physician ANA MARIA TEJADA MD Jan 31, 2023 07:10
[2023-01-31 10:00] VITALS: BP 110/66
[2023-01-31] MEDS: FERROUS SULFATE 325 MG (IRON) TABLET PO SCH (10:12)
[2023-01-31] MEDS: PRENATAL VITAMIN TABLET PO SCH (10:12)
[2023-01-31] MEDS: DOCUSATE SODIUM 100 MG CAPSULE PO SCH (10:13)
== END 2023-01-31 11:55 | disposition home or self-care (01) | DRG 806 ==
LOC: LDRP 15:35
PROVIDERS: ADMIT Family Medicine; ATTEND Family Medicine
PROC: 10E0XZZ Delivery of Products of Conception, External Approach (ICD-10-PCS; principal; 2023-01-29)
DX: O14.04 Mild to moderate pre-eclampsia, complicating childbirth (principal); D62 Acute posthemorrhagic anemia; Z37.0 Single live birth; Z3A.37 37 weeks gestation of pregnancy; O99.824 Streptococcus B carrier state complicating childbirth; O90.81 Anemia of the puerperium
CPT/HCPCS: 36415; 83033; 85025; 86780; 86850; 86900; 86901

== ENCOUNTER → 2023-01-29 | Outpatient (CLI) | payer MEDICAID ==
[2023-01-29 10:28] LABS: BASOPHILS % (AUTO) 0 % (0-10); EOSINOPHILS % (AUTO) 0 % (0-10); HEMATOCRIT 31 % (35-52); HEMOGLOBIN 10.8 g/dL (11.5-16.0); LYMPHOCYTES # (AUTO) 1.2 10^3/uL (1.0-4.0); LYMPHOCYTES % (AUTO) 14 % (12-44); MEAN CORPUSCULAR HEMOGLOBIN 31 pg (25-34); MEAN CORPUSCULAR HGB CONC 34 g/dL (32-36); MEAN CORPUSCULAR VOLUME 91 fL (80-99); MEAN PLATELET VOLUME 10.4 fL (9.0-12.2); MONOCYTES # (AUTO) 0.5 10^3/uL (0.0-1.0); MONOCYTES % (AUTO) 6 % (0-12); NEUTROPHILS # (AUTO) 6.9 10^3/uL (1.8-7.8); NEUTROPHILS % (AUTO) 79 % (42-75); PLATELET COUNT 263 10^3/uL (130-400); WHITE BLOOD COUNT 8.6 10^3/uL (4.3-11.0)
[2023-01-29 10:56] LABS: ALBUMIN 3.1 GM/DL (3.2-4.5); BILIRUBIN,TOTAL 0.6 MG/DL (0.1-1.0); CALCIUM 8.4 MG/DL (8.5-10.1); CREATININE SERUM 0.52 MG/DL (0.60-1.30); POTASSIUM 3.2 MMOL/L (3.6-5.0); TOTAL PROTEIN 6.1 GM/DL (6.4-8.2); URIC ACID 4.8 MG/DL (2.6-7.2)
== END ==
LOC: LAB 10:10
PROVIDERS: ATTEND Family Medicine
DX: O16.3 Unspecified maternal hypertension, third trimester (principal); Z3A.00 Weeks of gestation of pregnancy not specified
CPT/HCPCS: 36415; 80053; 82570; 83615; 84156; 84550; 85025